=== PATIENT | female | born 1970 | race Caucasian/White ===

== ENCOUNTER 2017-03-24 10:27 | Emergency (ER) | payer BC ==
[2017-03-24] MEDS ORDERED: BENADRYL 50 MG/ML IV ONE (10:47)
[2017-03-24] MEDS ORDERED: Hydromorphone 1 mg/ml Ampule IV ONE (10:47)
[2017-03-24 10:48] VITALS: BP 137/97; PULSE 119; O2SAT 100
--- NOTE | 2017-03-24 10:52 | ERPHSYRPT ---
- History of Present Illness Time Seen by Provider: 03/24/17 10:38 Historian: patient Patient Subjective Stated Complaint: PT REPORTS ABD PAIN ET BACK PAIN BEGINNING 4 DAYS AGO-WAS TX AT PCP OFFICE WITH TESTS ORDERED-DENIES CHANGES IN PAIN- DENIES N/V/D-DENIES FEVER Triage Nursing Assessment: PT PINK WARM ET PRE-KPAWO-ASNG EASY ET NONLABORED-AD NONTENDER TO PALP Physician History: CC: lower abdominal pain Hx: 47 y/o patient of dr Dia with some lower abdominal pain. She saw Dr Dia and has sono and labs ordered but pain is worse so she came to ER. She also has back pain but it is long standing since last summer associated with lifting ehavy boxes. Normal urination. Recent normal LMP. No N/V. No fever. No vaginal disch or bleeding. Allergies/Adverse Reactions: Sulfa (Sulfonamide Antibiotics) [Sulfa(Sulfonamide Antibiotics)] Allergy (Mild, Verified 03/24/17 10:40) Rash Home Medications: Alprazolam [Xanax 0.5 mg] 0.5 mg PO TID 05/03/13 [History] Topiramate 25 mg [Topamax 25 MG] 50 mg PO HS 10/27/14 [History] Levothyroxine Sodium 100 Mcg [Synthroid 100 Mcg] 100 mcg PO DAILY 03/24/17 [History] Hx Tetanus, Diphtheria Vaccination/Date Given: Yes Hx Influenza Vaccination/Date Given: No Hx Pneumococcal Vaccination/Date Given: No Immunizations Up to Date: Yes - Review of Systems Constitutional: Malaise, No Fever, No Chills Eyes: No Symptoms Ears, Nose, & Throat: No Symptoms Respiratory: No Cough, No Dyspnea Cardiac: No Chest Pain Abdominal/Gastrointestinal: Abdominal Pain, Nausea, No Vomiting, No Diarrhea Genitourinary Symptoms: No Dysuria, No Vaginal Bleeding, No Vaginal Discharge Musculoskeletal: Back Pain Skin: No Rash Neurological: No Focal Weakness, No Headache, No Parasthesia All Other Systems: Reviewed and Negative - Past Medical History Pertinent Past Medical History: Yes Neurological History: Migraines ENT History: No Pertinent History Cardiac History: Hypertension Respiratory History: Other Endocrine Medical History: No Pertinent History Musculoskeletal History: No Pertinent History GI Medical History: No Pertinent History History: No Pertinent History Psycho-Social History: Anxiety Female Reproductive Disorders: No Pertinent History - Past Surgical History Past Surgical History: Yes Neuro Surgical History: No Pertinent History Cardiac: No Pertinent History Respiratory: No Pertinent History Gastrointestinal: No Pertinent History Genitourinary: No Pertinent History Musculoskeletal: No Pertinent History Female Surgical History: Tubal Ligation - Social History Smoking Status: Current some day smoker How long have you smoked: 19 Exposure to second hand smoke: Yes Alcohol Use: Socially Drug Use: methamphetamines Patient Lives Alone: No Significant Family History: no pertinent family hx - Female History Hx Now: No - Nursing Vital Signs Nursing Vital Signs: Initial Vital Signs Temperature 98.2 F 03/24/17 10:47 Pulse Rate 119 H 03/24/17 10:47 Respiratory Rate 20 03/24/17 10:47 Blood Pressure 137/97 03/24/17 10:47 O2 Sat by Pulse Oximetry 100 03/24/17 10:47 Pain Scale Pain Intensity 4 - Physical Exam General Appearance: alert Eye Exam: PERRL/EOMI Ears, Nose, Throat Exam: normal ENT inspection, moist mucous membranes Neck Exam: normal inspection, non-tender, supple Respiratory Exam: normal breath sounds, lungs clear Cardiovascular Exam: regular rate/rhythm Gastrointestinal/Abdomen Exam: soft, tenderness (lower), No distention, No mass Pelvic Exam: normal external exam, cervical motion tenderness, uterine tenderness, vaginal discharge (mild frothy white discharge), No vaginal bleeding Back Exam: normal inspection, No CVA tenderness Extremity Exam: normal inspection, normal range of motion Neurologic Exam: alert, oriented x 3, cooperative, sensation nml, No motor deficits Skin Exam: warm, dry, No rash SpO2 Interpretation: normal SpO2: 100 Oxygen Delivery: Room Air - Course Nursing assessment & vital signs reviewed: Yes Ordered Tests: Active Orders 24 hr Category Date Time Status Cath for Specimen-Straight STAT Care 03/24/17 10:49 Active IV Insertion STAT Care 03/24/17 10:47 Active NPO (ED) STAT Care 03/24/17 10:47 Active Pelvic Exam Assist STAT Care 03/24/17 10:47 Active ABDOMEN AND PELVIS W CONTRAST [CT] Stat Exams 03/24/17 10:47 Taken CBC W DIFF Stat Lab 03/24/17 11:05 Completed CMP Stat Lab 03/24/17 11:13 Completed HCG QUALITATIVE,SERUM Stat Lab 03/24/17 11:13 Completed LIPASE Stat Lab 03/24/17 11:13 Completed Lactic Acid Stat Lab 03/24/17 11:23 Results UA W/RFX UR CULTURE Stat Lab 03/24/17 10:47 Completed Wet Prep Stat Lab 03/24/17 10:47 Completed Medication Summary Generic Name Dose Route Start Last Admin Trade Name Vic PRN Reason Stop Dose Admin Sodium Chloride 1,000 mls @ 100 mls/hr 03/24/17 11:00 03/24/17 11:32 Sodium Chloride 0.9% 1000 Ml IV 04/23/17 10:59 100 mls/hr .Q10H KWAN Administration Discontinued Medications Generic Name Dose Route Start Last Admin Trade Name Vic PRN Reason Stop Dose Admin Diphenhydramine HCl 25 mg 03/24/17 10:47 03/24/17 11:37 Benadryl 50 Mg/Ml IV 03/24/17 10:48 Not Given STAT ONE Diphenhydramine HCl Confirm 03/24/17 11:22 Benadryl 50 Mg/Ml Administered 03/24/17 11:23 Dose 50 mg .ROUTE .STK-MED ONE Hydromorphone HCl 1 mg 03/24/17 10:47 03/24/17 11:37 Hydromorphone 1 Mg/Ml Ampule IV 03/24/17 10:48 Not Given STAT ONE Hydromorphone HCl Confirm 03/24/17 11:22 Hydromorphone 1 Mg/Ml Ampule Administered 03/24/17 11:23 Dose 1 mg .ROUTE .STK-MED ONE Lab/Rad Data: Laboratory Result Diagrams 03/24/17 11:05 03/24/17 11:13 Laboratory Results 03/24/17 03/24/17 03/24/17 Range/Units 11:23 11:13 11:13 WBC (4.0-10.5) K/mm3 RBC (4.1-5.4) M/mm3 Hgb (12.0-16.0) gm/dl Hct (35-47) % MCV (78-100) fl MCH (26-32) pg MCHC (32-36) g/dl RDW (11.5-14.0) % Plt Count (150-450) K/mm3 MPV (6-9.5) fl Gran % (36.0-66.0) % Lymphocytes % (24.0-44.0) % Monocytes % (0.0-12.0) % Eosinophils % (0.00-5.0) % Basophils % (0.0-0.4) % Basophils # (0-0.4) Sodium 138 (136-145) mEq/L Potassium 4.3 (3.5-5.1) mEq/L Chloride 103 (98-107) mEq/L Carbon Dioxide 21.8 (21-32) mEq/L Anion Gap 17.9 H (5-15) MEQ/L BUN 10 (9-20) mg/dL Creatinine 0.78 (0.55-1.30) mg/dl Estimated GFR > 60 ML/MIN Glucose 96 (70-110) MG/DL Lactic Acid 2.2 H (0.4-2.0) Calcium 9.3 (8.5-10.1) mg/dL Total Bilirubin 0.40 (0.2-1.0) mg/dL AST 42 H (15-37) U/L ALT 78 (12-78) U/L Alkaline Phosphatase 82 (46-116) U/L Serum Total Protein 8.0 (6.4-8.2) gm/dL Albumin 3.9 (3.4-5.0) g/dL Lipase 112 (73-393) U/L Serum , Qual NEGATIVE (Negative) Ur Collection Type Urine Color (YELLOW) Urine Appearance (CLEAR) Urine pH (5-6) Ur Specific [place] (1.005-1.025) Urine Protein (Negative) Urine Ketones (NEGATIVE) Urine Blood (0-5) Yossi/ul Urine Nitrite (NEGATIVE) Urine Bilirubin (NEGATIVE) Urine Urobilinogen (0-1) mg/dL Ur Leukocyte Esterase (NEGATIVE) Urine Culture Reflexed (NO) Urine Glucose (NEGATIVE) mg/dL WBC (Wet Prep) RBC (Wet Prep) Epi Cells (Wet Prep) Bacteria (Wet Prep) Clue Cells (Wet Prep) Trichomonas (Wet Prep) Budding Yeast (Wet Prp) Specimen Received 03/24/17 03/24/17 Range/Units 11:05 10:47 WBC 11.0 H (4.0-10.5) K/mm3 RBC 4.97 (4.1-5.4) M/mm3 Hgb 14.0 (12.0-16.0) gm/dl Hct 42.9 (35-47) % MCV 86.3 (78-100) fl MCH 28.2 (26-32) pg MCHC 32.6 (32-36) g/dl RDW 13.6 (11.5-14.0) % Plt Count 336 (150-450) K/mm3 MPV 11.4 H (6-9.5) fl Gran % 60.4 (36.0-66.0) % Lymphocytes % 28.6 (24.0-44.0) % Monocytes % 9.0 (0.0-12.0) % Eosinophils % 1.7 (0.00-5.0) % Basophils % 0.3 (0.0-0.4) % Basophils # 0.03 (0-0.4) Sodium (136-145) mEq/L Potassium (3.5-5.1) mEq/L Chloride (98-107) mEq/L Carbon Dioxide (21-32) mEq/L Anion Gap (5-15) MEQ/L BUN (9-20) mg/dL Creatinine (0.55-1.30) mg/dl Estimated GFR ML/MIN Glucose (70-110) MG/DL Lactic Acid (0.4-2.0) Calcium (8.5-10.1) mg/dL Total Bilirubin (0.2-1.0) mg/dL AST (15-37) U/L ALT (12-78) U/L Alkaline Phosphatase (46-116) U/L Serum Total Protein (6.4-8.2) gm/dL Albumin (3.4-5.0) g/dL Lipase (73-393) U/L Serum , Qual (Negative) Ur Collection Type CATH Urine Color YELLOW (YELLOW) Urine Appearance CLEAR (CLEAR) Urine pH 5.0 (5-6) Ur Specific [place] 1.030 (1.005-1.025) Urine Protein NEGATIVE (Negative) Urine Ketones NEGATIVE (NEGATIVE) Urine Blood NEGATIVE (0-5) Yossi/ul Urine Nitrite NEGATIVE (NEGATIVE) Urine Bilirubin NEGATIVE (NEGATIVE) Urine Urobilinogen NORMAL (0-1) mg/dL Ur Leukocyte Esterase NEGATIVE (NEGATIVE) Urine Culture Reflexed NO (NO) Urine Glucose NEGATIVE (NEGATIVE) mg/dL WBC (Wet Prep) Few RBC (Wet Prep) Few Epi Cells (Wet Prep) Few Bacteria (Wet Prep) Moderate Clue Cells (Wet Prep) Moderate Trichomonas (Wet Prep) None Seen Budding Yeast (Wet Prp) None Seen Specimen Received 03-24-17 1100 - Progress Progress Note: 03/24/17 13:13 CT shows diverticulosis but no evidence of inflammation. No ovarian cyst. She has clue cells. GC/CT pending. Will give rocephin/doxy to cover PID and use flagyl for vaginosis. Advised no intercourse and to follow up with Dr Dia. Counseled pt/family regarding: lab results, diagnosis, need for follow-up, rad results - Departure Time of Disposition: 13:14 Departure Disposition: Home Clinical Impression: Lower abdominal pain, Bacterial vaginosis, PID (pelvic inflammatory disease) Condition: Stable Critical Care Time: No Referrals: TRAVON DIA MD [Primary Care Provider] - Instructions: Abdominal Pain-Adult, Bacterial Vaginosis, Pelvic Inflammatory Disease Additional Instructions: No intercourse until you follow up with Dr Dia next week. Rx doxycycline. Rx flagyl. Rx naproxen. Rx sent to [email or web address]. Follow up with Dr Dia. Return for problems or concerns. Prescriptions: Doxycycline Hyclate 100 mg [Vibramycin 100 MG] 1 tab PO BID #28 tab Metronidazole 500 mg [Flagyl 500 MG] 500 mg PO BID #14 tablet Naproxen 500 mg [Naprosyn 500 MG] 500 tab PO BID #15 tablet
[2017-03-24] MEDS ORDERED: Sodium Chloride 0.9% 1000 ML 1,000 ML IV SCH (11:00)
[2017-03-24 11:21] LABS: Appearance CLEAR (CLEAR); Bilirubin NEGATIVE (NEGATIVE); Blood NEGATIVE Ery/ul (0-5); Glucose NEGATIVE (NEGATIVE); Ketones NEGATIVE (NEGATIVE); Leukocyte Esterase NEGATIVE (NEGATIVE); Nitrite NEGATIVE (NEGATIVE); Protein,Urine Dip NEGATIVE (Negative); Urobilinogen NORMAL mg/dL (0-1)
[2017-03-24] MEDS ORDERED: BENADRYL 50 MG/ML ONE (11:22)
[2017-03-24] MEDS ORDERED: Hydromorphone 1 mg/ml Ampule ONE (11:22)
[2017-03-24] MEDS ORDERED: Sodium Chloride 0.9% 1000 ML 1,000 ML ONE (11:23)
[2017-03-24 11:32] LABS: Lactic Acid 2.2 (0.4-2.0)
[2017-03-24 12:12] LABS: BASOPHIL % 0.3 % (0.0-0.4); Basophil (Absolute #) 0.03 (0-0.4); Eosinophil % 1.7 % (0.00-5.0); Eosinophil (Absolute #) 0.19 (0-0.5); Granulocyte Absolute (ANC) 6.63 (1.4-6.9); Granulocytes % 60.4 % (36.0-66.0); Hematocrit 42.9 % (35-47); Lymphocyte (Absolute #) 3.14 (1.0-4.6); Lymphocytes % 28.6 % (24.0-44.0); Mean Cell Volume 86.3 fl (78-100); Mean Corpuscular Hemoglobin 28.2 pg (26-32); Mean Corpuscular Hgb Concent. 32.6 g/dl (32-36); Mean Platelet Volume 11.4 fl (6-9.5); Monocyte (Absolute #) 0.99 (0.0-1.3); Platelet Count 336 K/mm3 (150-450); Red Blood Count 4.97 M/mm3 (4.1-5.4); Red Cell Distribution Width 13.6 % (11.5-14.0)
[2017-03-24 12:17] LABS: Bacteria Moderate; Clue Cells Moderate; Red Blood Cells Few; Trichomonas None Seen; White Blood Cells Few; Yeast None Seen
[2017-03-24 12:24] LABS: ALBUMIN 3.9 g/dL (3.4-5.0); ALKALINE PHOSPHATASE 82 U/L (46-116); ANION GAP 17.9 MEQ/L (5-15); BLOOD UREA NITROGEN 10 mg/dL (9-20); CHLORIDE 103 mEq/L (98-107); Calcium 9.3 mg/dL (8.5-10.1); Carbon Dioxide 21.8 mEq/L (21-32); Creatinine 1 0.78 mg/dl (0.55-1.30); EST GLOMERULAR FILTRATION RATE > 60 ML/MIN; Glucose 96 MG/DL (70-110); LIPASE 112 U/L (73-393); Potassium 4.3 mEq/L (3.5-5.1); SGOT/AST 42 U/L (15-37); SGPT/ALT 78 U/L (12-78); SODIUM 138 mEq/L (136-145)
[2017-03-24] MEDS ORDERED: ROCEPHIN 1 Gm-D5w 50 ml Bag** 1 G/50 ML IVPB IV STA (13:13)
[2017-03-24] MEDS ORDERED: ROCEPHIN 1 Gm-D5w 50 ml Bag** 1 G/50 ML IVPB IV ONE (13:24)
--- NOTE | 2017-03-24 22:54 | XRAY ---
Indication: Bilateral lower quadrant pain 3 days. Multiple contiguous axial images obtained through the abdomen and pelvis using 80 cc Isovue 370 contrast only. Comparison: October 27, 2014. Lung bases demonstrate minimal bibasilar dependent atelectasis. Heart is not enlarged. Noncontrasted stomach and bowel loops appear nonobstructed. Normal appendix. Again minimal descending/sigmoid diverticulosis without diverticulitis. No free fluid/air. Remaining liver, gallbladder, pancreas, spleen, degenerative glands, kidneys, ureters, bladder, uterus, and aorta appear normal in CT appearance and attenuation. No pathologic retroperitoneal lymphadenopathy. Osseous structures intact. Impression: Stable minimal colonic diverticulosis. No new/acute intra-abdominal/pelvic abnormalities. Comment: Preliminary interpretation was made by [facility]. No discrepancy. CTDI 19.45
== END 2017-03-24 13:35 | disposition home or self-care (01) ==
LOC: ED 10:27
DX: R10.30 Lower abdominal pain, unspecified (principal); M54.9 Dorsalgia, unspecified; N76.0 Acute vaginitis; N73.9 Female pelvic inflammatory disease, unspecified
CPT/HCPCS: 36000; 36415; 74177; 80053; 81002; 83605; 83690; 84703; 85025; 87210; 87490; 87590; 96360; 96361; 96365; 99284; J0696; J1170; J1200; P9612

== ENCOUNTER 2017-09-13 16:17 | Emergency (ER) | payer BC ==
[2017-09-13 16:30] VITALS: O2SAT 98
--- NOTE | 2017-09-13 17:03 | ERPHSYRPT ---
- History of Present Illness Time Seen by Provider: 09/13/17 16:40 Source: patient Exam Limitations: clinical condition Patient Subjective Stated Complaint: Cough and congestion Triage Nursing Assessment: Pt presents to the Ed with complaints of cough and congestion x1. Pt states productive cough but states she has not observed the mucus. No distress noted, pt denies pain, skin PWD, pt A&O x4. Physician History: PATIENT COMPLAINS OF PRODUCTIVE COUGH FOR 2 DAYS. DENIES FEVER, CHILLS, SORETHROAT OR DYSPNEA, Timing/Duration: yesterday Cough Quality/Degree: moderate, productive cough Possible Cause: no prior episodes Modifying Factors: Improves With: coughing Associated Symptoms: denies symptoms International travel in last 2 weeks: No Allergies/Adverse Reactions: Sulfa (Sulfonamide Antibiotics) [Sulfa(Sulfonamide Antibiotics)] Allergy (Mild, Verified 03/24/17 10:40) Rash Home Medications: ALPRAZolam [Xanax 0.5 mg] 0.5 mg PO TID 05/03/13 [History] Levothyroxine Sodium 100 Mcg [Synthroid 100 Mcg] 100 mcg PO DAILY 03/24/17 [History] Atorvastatin Calcium 20 mg PO DAILY 09/13/17 [History] Metoprolol Succinate [Toprol Xl] 50 mg PO DAILY 09/13/17 [History] Hx Tetanus, Diphtheria Vaccination/Date Given: No Hx Influenza Vaccination/Date Given: Yes Hx Pneumococcal Vaccination/Date Given: No Immunizations Up to Date: Yes - Review of Systems Constitutional: No Fever, No Chills Eyes: No Symptoms Ears, Nose, & Throat: No Symptoms Respiratory: Cough, No Dyspnea Cardiac: No Symptoms, No Chest Pain, No Edema, No Syncope Abdominal/Gastrointestinal: No Abdominal Pain, No Nausea, No Vomiting, No Diarrhea Genitourinary Symptoms: No Symptoms, No Dysuria Musculoskeletal: No Symptoms, No Back Pain, No Neck Pain Skin: No Rash Neurological: No Dizziness, No Focal Weakness, No Sensory Changes Psychological: No Symptoms Endocrine: No Symptoms All Other Systems: Reviewed and Negative - Past Medical History Pertinent Past Medical History: Yes Neurological History: Migraines ENT History: No Pertinent History Cardiac History: Hypertension Respiratory History: Other Endocrine Medical History: No Pertinent History Musculoskeletal History: No Pertinent History GI Medical History: No Pertinent History History: No Pertinent History Psycho-Social History: Anxiety Female Reproductive Disorders: No Pertinent History - Past Surgical History Past Surgical History: Yes Neuro Surgical History: No Pertinent History Cardiac: No Pertinent History Respiratory: No Pertinent History Gastrointestinal: No Pertinent History Genitourinary: No Pertinent History Musculoskeletal: No Pertinent History Female Surgical History: Tubal Ligation - Social History Smoking Status: Current every day smoker How long have you smoked: 30 years Exposure to second hand smoke: Yes Alcohol Use: Socially Drug Use: none Patient Lives Alone: No Significant Family History: no pertinent family hx - Female History Hx Now: No - Nursing Vital Signs Nursing Vital Signs: Initial Vital Signs Temperature 98.8 F 09/13/17 16:22 Pulse Rate 89 09/13/17 16:22 Respiratory Rate 16 09/13/17 16:22 Blood Pressure 168/86 09/13/17 16:22 O2 Sat by Pulse Oximetry 96 09/13/17 16:22 Pain Scale Pain Intensity 0 - Physical Exam General Appearance: no apparent distress, alert Eye Exam: PERRL/EOMI, eyes nml inspection Ears, Nose, Throat Exam: normal ENT inspection, TMs normal, pharynx normal, moist mucous membranes Neck Exam: normal inspection, non-tender, supple, full range of motion Respiratory Exam: normal breath sounds, lungs clear, No respiratory distress Cardiovascular Exam: regular rate/rhythm, normal heart sounds Gastrointestinal/Abdomen Exam: No tenderness Back Exam: normal inspection, No CVA tenderness, No vertebral tenderness Extremity Exam: normal inspection, normal range of motion Neurologic Exam: alert, oriented x 3, cooperative, normal mood/affect, sensation nml, No motor deficits Skin Exam: normal color, warm, dry, No rash Lymphatic Exam: No adenopathy SpO2: 98 Oxygen Delivery: Room Air - Progress Counseled pt/family regarding: diagnosis, need for follow-up - Departure Time of Disposition: 17:05 Departure Disposition: Home Clinical Impression: ACUTE BRONCHITIS Condition: Stable Critical Care Time: No Referrals: TRAVON DIA MD [Primary Care Provider] - Additional Instructions: TAKE OVER THE COUNTER COUGH SYRUP FOR COUGHING. ANTIBIOTIC AUGMENTIN 875MG TWICE DAILY FOR 10 DAYS. TYLENOL OR MOTRIN NEEDED FOR FEVER. CONSULT YOUR PRIMARY CARE PROVIDER FOR FOLLOWUP IN 1 WEEK. Prescriptions: Amox Tr/Potass Clav. 875 mg [Augmentin 875-125 Tablet] 875 mg PO BID #20 tablet
[2017-09-13 17:14] VITALS: BP 161/77; PULSE 92
== END 2017-09-13 17:12 | disposition home or self-care (01) ==
LOC: ED 16:17
DX: J20.9 Acute bronchitis, unspecified (principal); Z79.899 Other long term (current) drug therapy
CPT/HCPCS: 99283

== ENCOUNTER 2018-01-01 11:04 | Emergency (ER) | payer BC ==
--- NOTE | 2018-01-01 11:20 | ERPHSYRPT ---
- History of Present Illness Time Seen by Provider: 01/01/18 11:19 Source: patient Exam Limitations: no limitations Physician History: 47 y/o white female presents with weakness for a couple of days and bilat lower ext edema intermittently for 1 week after standing at work. pt has hypothyroidism, hypertension, and hypercholesterolemia. pt denies cp and denies abd pain. no new meds and denies illicit drug use. Timing/Duration: day(s) (2) Severity: mild Associated Symptoms: weakness, No nausea, No vomiting, No abdominal pain, No shortness of breath, No heartburn, No diaphoresis, No cough, No chest pain, No fever, No headaches, No loss of appetite, No malaise, No syncope, No seizure Allergies/Adverse Reactions: Sulfa (Sulfonamide Antibiotics) [Sulfa(Sulfonamide Antibiotics)] Allergy (Mild, Verified 01/01/18 11:21) Rash Home Medications: ALPRAZolam [Xanax 0.5 mg] 0.5 mg PO TID 05/03/13 [History] Levothyroxine Sodium 100 Mcg [Synthroid 100 Mcg] 75 mcg PO DAILY 03/24/17 [ History] Atorvastatin Calcium 20 mg PO DAILY 09/13/17 [History] Metoprolol Succinate [Toprol Xl] 50 mg PO DAILY 09/13/17 [History] Hx Tetanus, Diphtheria Vaccination/Date Given: No Hx Influenza Vaccination/Date Given: Yes Hx Pneumococcal Vaccination/Date Given: No - Review of Systems Constitutional: Weakness Eyes: No Symptoms, No Discharge, No Eye Pain Ears, Nose, & Throat: No Symptoms, No Ear Pain, No Mouth Pain, No Painful Swallowing Respiratory: No Symptoms, No Cough, No Dyspnea, No Stridor, No Wheezing Cardiac: No Symptoms, No Chest Pain, No Palpitations, No Syncope Abdominal/Gastrointestinal: No Symptoms, No Abdominal Pain, No Nausea, No Vomiting, No Diarrhea Genitourinary Symptoms: No Symptoms, No Dysuria, No Frequency, No Hematuria Musculoskeletal: No Symptoms, No Back Pain, No Neck Pain, No Deformity, No Fall , No Injury Skin: No Symptoms Neurological: No Symptoms, No Dizziness, No Headache Psychological: Anxiety, No Alcohol Abuse, No Drug Abuse Endocrine: No Symptoms Hematologic/Lymphatic: No Symptoms Immunological/Allergic: No Symptoms All Other Systems: Reviewed and Negative - Past Medical History Pertinent Past Medical History: Yes Neurological History: Migraines ENT History: No Pertinent History Cardiac History: Hypertension Respiratory History: Other Endocrine Medical History: No Pertinent History Musculoskeletal History: No Pertinent History GI Medical History: No Pertinent History History: No Pertinent History Psycho-Social History: Anxiety Female Reproductive Disorders: No Pertinent History - Past Surgical History Past Surgical History: Yes Neuro Surgical History: No Pertinent History Cardiac: No Pertinent History Respiratory: No Pertinent History Gastrointestinal: No Pertinent History Genitourinary: No Pertinent History Musculoskeletal: No Pertinent History Female Surgical History: Tubal Ligation - Social History Smoking Status: Current every day smoker How long have you smoked: 30 years Exposure to second hand smoke: Yes Alcohol Use: Socially Drug Use: none Patient Lives Alone: No Significant Family History: no pertinent family hx - Nursing Vital Signs Nursing Vital Signs: Initial Vital Signs Temperature 97.6 F 01/01/18 11:11 Pulse Rate 85 01/01/18 11:11 Blood Pressure 179/91 01/01/18 11:11 O2 Sat by Pulse Oximetry 96 01/01/18 11:11 Pain Scale Pain Intensity 9 - Physical Exam General Appearance: no apparent distress, alert, anxiety Eye Exam: PERRL/EOMI, eyes nml inspection Ears, Nose, Throat Exam: normal ENT inspection, TMs normal, moist mucous membranes Neck Exam: normal inspection, non-tender, supple, full range of motion Respiratory Exam: normal breath sounds, lungs clear, airway intact, No chest tenderness, No accessory muscle use, No rhonchi, No wheezing, No stridor Cardiovascular Exam: regular rate/rhythm, normal heart sounds, normal peripheral pulses Gastrointestinal/Abdomen Exam: soft, normal bowel sounds, No tenderness, No guarding, No rebound Pelvic Exam: not done Rectal Exam: not done Back Exam: normal inspection, normal range of motion, No CVA tenderness, No vertebral tenderness Extremity Exam: normal inspection, normal range of motion, pelvis stable Neurologic Exam: alert, oriented x 3, cooperative, 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 as tested Skin Exam: normal color, warm, dry Lymphatic Exam: No adenopathy SpO2 Interpretation: normal - Course Nursing assessment & vital signs reviewed: Yes EKG Interpreted by Me: RATE (74), Sinus Rhythm, NORMAL AXIS, NORMAL INTERVALS, NORMAL QRS (no changes from ekg dated 08/09/16) Ordered Tests: Active Orders 24 hr Category Date Time Status Clean Catch Urine Specimen STAT Care 10/16/18 11:37 Active EKG-ER Only STAT Care 01/01/18 11:37 Active IV Insertion STAT Care 01/01/18 11:37 Active Pulse Oximetry (ED) STAT Care 01/01/18 11:37 Active CBC W DIFF Stat Lab 01/01/18 11:50 Completed CMP Stat Lab 01/01/18 11:50 Completed CULTURE,URINE Stat Lab 01/01/18 12:05 Received TROPONIN Q3H Lab 01/01/18 11:50 Completed TROPONIN Q3H Lab 01/01/18 14:45 Ordered TROPONIN Q3H Lab 01/01/18 17:45 Ordered TROPONIN Q3H Lab 01/01/18 20:45 Ordered TROPONIN Q3H Lab 01/01/18 23:45 Ordered UA W/RFX UR CULTURE Stat Lab 01/01/18 12:05 Completed Urine Triage Profile Stat Lab 01/01/18 12:05 Completed Lab/Rad Data: Laboratory Result Diagrams 01/01/18 11:50 01/01/18 11:50 Laboratory Results 01/01/18 01/01/18 01/01/18 Range/Units 12:05 12:05 11:50 WBC (4.0-10.5) K/mm3 RBC (4.1-5.4) M/mm3 Hgb (12.0-16.0) gm/dl Hct (35-47) % MCV (78-100) fl MCH (26-32) pg MCHC (32-36) g/dl RDW (11.5-14.0) % Plt Count (150-450) K/mm3 MPV (6-9.5) fl Gran % (36.0-66.0) % Eos # (Auto) (0-0.5) Absolute Lymphs (auto) (1.0-4.6) Absolute Monos (auto) (0.0-1.3) Lymphocytes % (24.0-44.0) % Monocytes % (0.0-12.0) % Eosinophils % (0.00-5.0) % Basophils % (0.0-0.4) % Absolute Granulocytes (1.4-6.9) Basophils # (0-0.4) Sodium (137-145) mmol/L Potassium (3.5-5.1) mmol/L Chloride (98-107) mmol/L Carbon Dioxide (22-30) mmol/L Anion Gap (5-15) MEQ/L BUN (7-17) mg/dL Creatinine (0.52-1.04) mg/dL Estimated GFR ML/MIN Glucose (74-106) mg/dL Calcium (8.4-10.2) mg/dL Total Bilirubin (0.2-1.3) mg/dL AST (14-36) U/L ALT (0-35) U/L Alkaline Phosphatase (38-126) U/L Troponin I < 0.012 (0.000-0.034) ng/mL Serum Total Protein (6.3-8.2) g/dL Albumin (3.5-5.0) g/dL Urine Color YELLOW (YELLOW) Urine Appearance CLOUDY (CLEAR) Urine pH 5.0 (5-6) Ur Specific [place] 1.019 (1.005-1.025) Urine Protein NEGATIVE (Negative) Urine Ketones NEGATIVE (NEGATIVE) Urine Blood SMALL (0-5) Yossi/ul Urine Nitrite NEGATIVE (NEGATIVE) Urine Bilirubin NEGATIVE (NEGATIVE) Urine Urobilinogen NEGATIVE (0-1) mg/dL Ur Leukocyte Esterase TRACE (NEGATIVE) Urine WBC (Auto) 6-10 (0-5) /HPF Urine RBC (Auto) 0-2 (0-2) /HPF U Epithel Cells (Auto) MODERATE (FEW) /HPF Urine Bacteria (Auto) FEW (NEGATIVE) /HPF Urine Mucus (Auto) SLIGHT (NEGATIVE) /HPF Urine Culture Reflexed YES (NO) Urine Glucose NEGATIVE (NEGATIVE) mg/dL Urine Opiates Level NEGATIVE (NEGATIVE) Ur Methadone NEGATIVE (NEGATIVE) Urine Barbiturates NEGATIVE (NEGATIVE) Ur Phencyclidine (PCP) NEGATIVE (NEGATIVE) Urine Amphetamine NEGATIVE (NEGATIVE) U Benzodiazepine Level NEGATIVE (NEGATIVE) Urine Cocaine NEGATIVE (NEGATIVE) Urine Marijuana (THC) NEGATIVE (NEGATIVE) 01/01/18 01/01/18 Range/Units 11:50 11:50 WBC 9.0 (4.0-10.5) K/mm3 RBC 4.76 (4.1-5.4) M/mm3 Hgb 13.6 (12.0-16.0) gm/dl Hct 41.2 (35-47) % MCV 86.6 (78-100) fl MCH 28.6 (26-32) pg MCHC 33.0 (32-36) g/dl RDW 13.3 (11.5-14.0) % Plt Count 263 (150-450) K/mm3 MPV 10.9 H (6-9.5) fl Gran % 61.1 (36.0-66.0) % Eos # (Auto) 0.17 (0-0.5) Absolute Lymphs (auto) 2.58 (1.0-4.6) Absolute Monos (auto) 0.73 (0.0-1.3) Lymphocytes % 28.7 (24.0-44.0) % Monocytes % 8.1 (0.0-12.0) % Eosinophils % 1.9 (0.00-5.0) % Basophils % 0.2 (0.0-0.4) % Absolute Granulocytes 5.50 (1.4-6.9) Basophils # 0.02 (0-0.4) Sodium 140 (137-145) mmol/L Potassium 4.0 (3.5-5.1) mmol/L Chloride 104 (98-107) mmol/L Carbon Dioxide 27 (22-30) mmol/L Anion Gap 13.2 (5-15) MEQ/L BUN 12 (7-17) mg/dL Creatinine 0.67 (0.52-1.04) mg/dL Estimated GFR > 60.0 ML/MIN Glucose 95 (74-106) mg/dL Calcium 9.5 (8.4-10.2) mg/dL Total Bilirubin 0.50 (0.2-1.3) mg/dL AST 41 H (14-36) U/L ALT 55 H (0-35) U/L Alkaline Phosphatase 100 (38-126) U/L Troponin I (0.000-0.034) ng/mL Serum Total Protein 7.7 (6.3-8.2) g/dL Albumin 4.7 (3.5-5.0) g/dL Urine Color (YELLOW) Urine Appearance (CLEAR) Urine pH (5-6) Ur Specific [place] (1.005-1.025) Urine Protein (Negative) Urine Ketones (NEGATIVE) Urine Blood (0-5) Yossi/ul Urine Nitrite (NEGATIVE) Urine Bilirubin (NEGATIVE) Urine Urobilinogen (0-1) mg/dL Ur Leukocyte Esterase (NEGATIVE) Urine WBC (Auto) (0-5) /HPF Urine RBC (Auto) (0-2) /HPF U Epithel Cells (Auto) (FEW) /HPF Urine Bacteria (Auto) (NEGATIVE) /HPF Urine Mucus (Auto) (NEGATIVE) /HPF Urine Culture Reflexed (NO) Urine Glucose (NEGATIVE) mg/dL Urine Opiates Level (NEGATIVE) Ur Methadone (NEGATIVE) Urine Barbiturates (NEGATIVE) Ur Phencyclidine (PCP) (NEGATIVE) Urine Amphetamine (NEGATIVE) U Benzodiazepine Level (NEGATIVE) Urine Cocaine (NEGATIVE) Urine Marijuana (THC) (NEGATIVE) - Progress Progress: improved, re-examined Counseled pt/family regarding: lab results, diagnosis, need for follow-up - Departure Time of Disposition: 13:44 Departure Disposition: Home Clinical Impression: Weakness, UTI (urinary tract infection) Condition: Stable Critical Care Time: No Referrals: TRAVON DIA MD [Primary Care Provider] - Additional Instructions: drink plenty of fluids. follow up with your prescribing physician for further management Prescriptions: Ciprofloxacin [Cipro 500 MG] 500 mg PO BID #14 tablet
[2018-01-01 12:13] LABS: BASOPHIL % 0.2 % (0.0-0.4); Basophil (Absolute #) 0.02 (0-0.4); Eosinophil % 1.9 % (0.00-5.0); Eosinophil (Absolute #) 0.17 (0-0.5); Granulocytes % 61.1 % (36.0-66.0); Hematocrit 41.2 % (35-47); Hemoglobin 13.6 gm/dl (12.0-16.0); Lymphocyte (Absolute #) 2.58 (1.0-4.6); Lymphocytes % 28.7 % (24.0-44.0); Mean Cell Volume 86.6 fl (78-100); Mean Corpuscular Hemoglobin 28.6 pg (26-32); Mean Platelet Volume 10.9 fl (6-9.5); Monocyte (Absolute #) 0.73 (0.0-1.3); Monocytes % 8.1 % (0.0-12.0); Platelet Count 263 K/mm3 (150-450); Red Blood Count 4.76 M/mm3 (4.1-5.4); Red Cell Distribution Width 13.3 % (11.5-14.0)
[2018-01-01 12:28] LABS: ALBUMIN 4.7 g/dL (3.5-5.0); ALKALINE PHOSPHATASE 100 U/L (38-126); ANION GAP 13.2 MEQ/L (5-15); BLOOD UREA NITROGEN 12 mg/dL (7-17); CHLORIDE 104 mmol/L (98-107); Calcium 9.5 mg/dL (8.4-10.2); Carbon Dioxide 27 mmol/L (22-30); Creatinine 1 0.67 mg/dL (0.52-1.04); Glucose 95 mg/dL (74-106); SGOT/AST 41 U/L (14-36); SGPT/ALT 55 U/L (0-35); SODIUM 140 mmol/L (137-145); Total Protein 7.7 g/dL (6.3-8.2)
[2018-01-01 12:42] LABS: Appearance CLOUDY (CLEAR); Bilirubin NEGATIVE (NEGATIVE); Blood SMALL Ery/ul (0-5); Glucose NEGATIVE (NEGATIVE); Ketones NEGATIVE (NEGATIVE); Leukocyte Esterase TRACE (NEGATIVE); Nitrite NEGATIVE (NEGATIVE); Protein,Urine Dip NEGATIVE (Negative); Specific Gravity 1.019 (1.005-1.025); Urobilinogen NEGATIVE mg/dL (0-1)
[2018-01-01 12:52] LABS: Amphetamine,Urine NEGATIVE (NEGATIVE); Barbiturate,Urine NEGATIVE (NEGATIVE); Benzodiazepine,Urine NEGATIVE (NEGATIVE); Cocaine,Urine NEGATIVE (NEGATIVE); Methadone,Urine NEGATIVE (NEGATIVE); Opiate,Urine NEGATIVE (NEGATIVE); PCP,Urine NEGATIVE (NEGATIVE); THC,Urine NEGATIVE (NEGATIVE)
[2018-01-01] MEDS ORDERED: Cipro 500 MG PO ONE (13:46)
[2018-01-01] MEDS ORDERED: Cipro 500 MG ONE (13:51)
[2018-01-01 13:54] VITALS: BP 155/99; PULSE 74; O2SAT 97
== END 2018-01-01 14:01 | disposition home or self-care (01) ==
LOC: ED 11:04
DX: N39.0 Urinary tract infection, site not specified (principal); R53.1 Weakness; Z79.899 Other long term (current) drug therapy
CPT/HCPCS: 36000; 36415; 80053; 80307; 81001; 84484; 85025; 87086; 93005; 99284; A9270-GY

== ENCOUNTER 2019-04-20 10:43 | Emergency (ER) | payer BC ==
[2019-04-20] MEDS ORDERED: Zofran 4 MG/2 ML VIAL IV ONE (11:01)
[2019-04-20] MEDS ORDERED: Protonix 40MG Tablet PO ONE (11:01)
[2019-04-20] MEDS ORDERED: Sodium Chloride 0.9% 1000 ML 1,000 ML IV STA (11:01)
[2019-04-20] MEDS ORDERED: TORAdol 30 mg Injection IV ONE (11:01)
[2019-04-20] MEDS ORDERED: TORAdol 30 mg Injection ONE (11:09)
[2019-04-20] MEDS ORDERED: Sodium Chloride 0.9% 1000 ML 1,000 ML ONE (11:09)
[2019-04-20] MEDS ORDERED: Zofran 4 MG/2 ML VIAL ONE (11:09)
[2019-04-20] MEDS ORDERED: Protonix 40MG Tablet ONE (11:09)
[2019-04-20 11:19] LABS: Absolute Neutrophil Ct (ANC) 4.73 (1.4-6.9); BASOPHIL % 0.5 % (0.0-0.4); Basophil (Absolute #) 0.04 (0-0.4); Eosinophil % 1.9 % (0.00-5.0); Eosinophil (Absolute #) 0.16 (0-0.5); Hematocrit 40.9 % (35-47); Hemoglobin 13.4 gm/dl (12.0-16.0); Lymphocyte (Absolute #) 2.59 (1.0-4.6); Lymphocytes % 31.4 % (24.0-44.0); Mean Cell Volume 85.2 fl (78-100); Mean Corpuscular Hemoglobin 27.9 pg (26-32); Mean Corpuscular Hgb Concent. 32.8 g/dl (32-36); Mean Platelet Volume 11.1 fl (7.5-11.0); Monocyte (Absolute #) 0.74 (0.0-1.3); Neutrophil % 57.2 % (36.0-66.0); Platelet Count 310 K/mm3 (150-450); Red Cell Distribution Width 14.7 % (11.5-14.0); White Blood Count 8.3 K/mm3 (4.0-10.5)
[2019-04-20 11:26] LABS: ALBUMIN 4.7 g/dL (3.5-5.0); ALKALINE PHOSPHATASE 57 U/L (38-126); AMYLASE 66 U/L (30-110); ANION GAP 13.1 MEQ/L (5-15); BLOOD UREA NITROGEN 18 mg/dL (7-17); CHLORIDE 103 mmol/L (98-107); Calcium 9.4 mg/dL (8.4-10.2); Carbon Dioxide 28 mmol/L (22-30); Creatinine 1 0.82 mg/dL (0.52-1.04); Glucose 148 mg/dL (74-106); LIPASE 122 U/L (23-300); Potassium 3.4 mmol/L (3.5-5.1); SGOT/AST 26 U/L (14-36); SGPT/ALT 27 U/L (0-35); SODIUM 140 mmol/L (137-145); Total Protein 8.1 g/dL (6.3-8.2)
[2019-04-20 11:31] LABS: INR 1.04 (0.8-3.0); PROTIME 11.8 SECONDS (9.95-12.35)
[2019-04-20 12:41] LABS: Appearance CLEAR (CLEAR); Bacteria RARE /HPF (NEGATIVE); Bilirubin NEGATIVE (NEGATIVE); Blood NEGATIVE Ery/ul (0-5); Epithelial Cells FEW /HPF (FEW); Glucose NEGATIVE (NEGATIVE); Ketones NEGATIVE (NEGATIVE); Leukocyte Esterase NEGATIVE (NEGATIVE); Mucus SLIGHT /HPF (NEGATIVE); Nitrite NEGATIVE (NEGATIVE); Protein,Urine Dip NEGATIVE (Negative); Specific Gravity 1.009 (1.005-1.025); Urobilinogen NEGATIVE mg/dL (0-1); WBC 0-2 /HPF (0-5)
--- NOTE | 2019-04-20 12:45 | ERPHSYRPT ---
- History of Present Illness Time Seen by Provider: 04/20/19 10:55 Historian: patient Exam Limitations: no limitations Patient Subjective Stated Complaint: states has been having ruq abd aching and pressure for two days. also having some nausea. denies v/d. normal bm today. denies fever. Triage Nursing Assessment: ambulated to room per self. skin w/d, color normal. abd round, soft, tender ruq. Physician History: intermittant abd pain - RUQ for weeks Timing/Duration: intermittent Activities at Onset: none Quality: cramping, stabbing Abdominal Pain Onset Location: RUQ Pain Radiation: no radiation Severity of Pain-Max: moderate Severity of Pain-Current: moderate Modifying Factors: Improves With: nothing Associated Symptoms: nausea Previous symptoms: same symptoms as today Allergies/Adverse Reactions: egg Allergy (Severe, Verified 04/20/19 11:11) Tightness of Throat Sulfa (Sulfonamide Antibiotics) [Sulfa(Sulfonamide Antibiotics)] Allergy (Mild, Verified 01/01/18 11:21) Rash Home Medications: ALPRAZolam [Xanax 0.5 mg] 0.5 mg PO TID 05/03/13 [History] Levothyroxine Sodium 100 Mcg [Synthroid 100 Mcg] 75 mcg PO DAILY 03/24/17 [ History] Atorvastatin Calcium 20 mg PO HS 09/13/17 [History] Metoprolol Succinate [Toprol Xl] 50 mg PO DAILY 09/13/17 [History] Fenofibrate,Micronized [Fenofibrate] 200 mg PO HS 04/20/19 [History] Omeprazole 40 mg PO DAILY 04/20/19 [History] Hx Tetanus, Diphtheria Vaccination/Date Given: No Hx Influenza Vaccination/Date Given: No Hx Pneumococcal Vaccination/Date Given: No - Review of Systems Constitutional: No Fever, No Chills Eyes: No Symptoms Ears, Nose, & Throat: No Symptoms Respiratory: No Cough, No Dyspnea Cardiac: No Chest Pain, No Edema, No Syncope Abdominal/Gastrointestinal: No Abdominal Pain, No Nausea, No Vomiting, No Diarrhea Genitourinary Symptoms: No Dysuria Musculoskeletal: No Back Pain, No Neck Pain Skin: No Rash Neurological: No Dizziness, No Focal Weakness, No Sensory Changes Psychological: No Symptoms Endocrine: No Symptoms All Other Systems: Reviewed and Negative - Past Medical History Pertinent Past Medical History: Yes Neurological History: Migraines ENT History: No Pertinent History Cardiac History: Hypertension Respiratory History: Other Endocrine Medical History: No Pertinent History Musculoskeletal History: No Pertinent History GI Medical History: No Pertinent History History: No Pertinent History Psycho-Social History: Anxiety Female Reproductive Disorders: No Pertinent History - Past Surgical History Past Surgical History: Yes Neuro Surgical History: No Pertinent History Cardiac: No Pertinent History Respiratory: No Pertinent History Gastrointestinal: No Pertinent History Genitourinary: No Pertinent History Musculoskeletal: No Pertinent History Female Surgical History: Tubal Ligation - Social History Smoking Status: Current every day smoker How long have you smoked: 30 Exposure to second hand smoke: No Alcohol Use: Socially Drug Use: none Patient Lives Alone: No Significant Family History: no pertinent family hx - Female History Hx Last Menstrual Period: 03/31/19 Hx Now: No - Nursing Vital Signs Nursing Vital Signs: Initial Vital Signs Temperature 99.6 F 04/20/19 10:53 Pulse Rate 101 H 04/20/19 10:53 Respiratory Rate 16 04/20/19 10:53 Blood Pressure 178/97 04/20/19 10:53 O2 Sat by Pulse Oximetry 99 04/20/19 10:53 Pain Scale Pain Intensity 2 - Physical Exam General Appearance: no apparent distress, alert Eye Exam: PERRL/EOMI, eyes nml inspection Ears, Nose, Throat Exam: normal ENT inspection, pharynx normal, moist mucous membranes Neck Exam: normal inspection, non-tender, supple, full range of motion Respiratory Exam: normal breath sounds, lungs clear, No respiratory distress Cardiovascular Exam: regular rate/rhythm, normal heart sounds Gastrointestinal/Abdomen Exam: soft, normal bowel sounds, tenderness, No mass Back Exam: normal inspection, normal range of motion, No CVA tenderness, No vertebral tenderness Extremity Exam: normal inspection, normal range of motion, pelvis stable Neurologic Exam: alert, oriented x 3, cooperative, normal mood/affect, nml cerebellar function, sensation nml, No motor deficits Skin Exam: normal color, warm, dry SpO2: 97 - Course Nursing assessment & vital signs reviewed: Yes - CT Exams Abdomen CT Interpretation: Other (gall stones) Ordered Tests: Active Orders 24 hr Category Date Time Status IV Insertion STAT Care 04/20/19 11:01 Active ABDOMEN AND PELVIS W/0 CONTRAS [CT] Stat Exams 04/20/19 11:23 Taken AMYLASE Stat Lab 04/20/19 11:13 Completed CBC W DIFF Stat Lab 04/20/19 11:13 Completed CMP Stat Lab 04/20/19 11:13 Completed LIPASE Stat Lab 04/20/19 11:13 Completed Lactic Acid Stat Lab 04/20/19 11:01 Completed PROTIME WITH INR Stat Lab 04/20/19 11:13 Completed UA W/RFX UR CULTURE Stat Lab 04/20/19 12:14 Ordered Medication Summary Discontinued Medications Generic Name Dose Route Start Last Admin Trade Name Vic PRN Reason Stop Dose Admin Sodium Chloride 1,000 mls @ 999 mls/hr 04/20/19 11:01 04/20/19 12:13 Sodium Chloride 0.9% 1000 Ml IV 04/20/19 12:01 Infused .Q1H1M STA Infusion Sodium Chloride Confirm 04/20/19 11:09 Sodium Chloride 0.9% 1000 Ml Administered 04/20/19 11:10 Dose 1,000 mls @ ud .ROUTE .STK-MED ONE Ketorolac Tromethamine 30 mg 04/20/19 11:01 04/20/19 11:12 Toradol 30 Mg Injection IV 04/20/19 11:02 Not Given STAT ONE Ketorolac Tromethamine Confirm 04/20/19 11:09 Toradol 30 Mg Injection Administered 04/20/19 11:10 Dose 30 mg .ROUTE .STK-MED ONE Ondansetron HCl 4 mg 04/20/19 11:01 04/20/19 11:13 Zofran 4 Mg/2 Ml Vial IV 04/20/19 11:02 Not Given STAT ONE Ondansetron HCl Confirm 04/20/19 11:09 Zofran 4 Mg/2 Ml Vial Administered 04/20/19 11:10 Dose 4 mg .ROUTE .STK-MED ONE Pantoprazole Sodium 40 mg 04/20/19 11:01 04/20/19 11:11 Protonix 40mg Tablet PO 04/20/19 11:02 40 mg STAT ONE Administration Pantoprazole Sodium Confirm 04/20/19 11:09 Protonix 40mg Tablet Administered 04/20/19 11:10 Dose 40 mg .ROUTE .STK-MED ONE Lab/Rad Data: Laboratory Result Diagrams 04/20/19 11:13 04/20/19 11:13 Laboratory Results 04/20/19 04/20/19 04/20/19 Range/Units 11:13 11:13 11:13 WBC 8.3 (4.0-10.5) K/mm3 RBC 4.80 (4.1-5.4) M/mm3 Hgb 13.4 (12.0-16.0) gm/dl Hct 40.9 (35-47) % MCV 85.2 (78-100) fl MCH 27.9 (26-32) pg MCHC 32.8 (32-36) g/dl RDW 14.7 H (11.5-14.0) % Plt Count 310 (150-450) K/mm3 MPV 11.1 H (7.5-11.0) fl Gran % 57.2 (36.0-66.0) % Eos # (Auto) 0.16 (0-0.5) Absolute Lymphs (auto) 2.59 (1.0-4.6) Absolute Monos (auto) 0.74 (0.0-1.3) Lymphocytes % 31.4 (24.0-44.0) % Monocytes % 9.0 (0.0-12.0) % Eosinophils % 1.9 (0.00-5.0) % Basophils % 0.5 (0.0-0.4) % Absolute Granulocytes 4.73 (1.4-6.9) Basophils # 0.04 (0-0.4) PT 11.8 (9.95-12.35) SECONDS INR 1.04 (0.8-3.0) Sodium 140 (137-145) mmol/L Potassium 3.4 L (3.5-5.1) mmol/L Chloride 103 (98-107) mmol/L Carbon Dioxide 28 (22-30) mmol/L Anion Gap 13.1 (5-15) MEQ/L BUN 18 H (7-17) mg/dL Creatinine 0.82 (0.52-1.04) mg/dL Estimated GFR > 60.0 ML/MIN Glucose 148 H (74-106) mg/dL Lactic Acid (0.4-2.0) Calcium 9.4 (8.4-10.2) mg/dL Total Bilirubin 0.30 (0.2-1.3) mg/dL AST 26 (14-36) U/L ALT 27 (0-35) U/L Alkaline Phosphatase 57 (38-126) U/L Serum Total Protein 8.1 (6.3-8.2) g/dL Albumin 4.7 (3.5-5.0) g/dL Amylase 66 (30-110) U/L Lipase 122 (23-300) U/L 04/20/19 Range/Units 11:01 WBC (4.0-10.5) K/mm3 RBC (4.1-5.4) M/mm3 Hgb (12.0-16.0) gm/dl Hct (35-47) % MCV (78-100) fl MCH (26-32) pg MCHC (32-36) g/dl RDW (11.5-14.0) % Plt Count (150-450) K/mm3 MPV (7.5-11.0) fl Gran % (36.0-66.0) % Eos # (Auto) (0-0.5) Absolute Lymphs (auto) (1.0-4.6) Absolute Monos (auto) (0.0-1.3) Lymphocytes % (24.0-44.0) % Monocytes % (0.0-12.0) % Eosinophils % (0.00-5.0) % Basophils % (0.0-0.4) % Absolute Granulocytes (1.4-6.9) Basophils # (0-0.4) PT (9.95-12.35) SECONDS INR (0.8-3.0) Sodium (137-145) mmol/L Potassium (3.5-5.1) mmol/L Chloride (98-107) mmol/L Carbon Dioxide (22-30) mmol/L Anion Gap (5-15) MEQ/L BUN (7-17) mg/dL Creatinine (0.52-1.04) mg/dL Estimated GFR ML/MIN Glucose (74-106) mg/dL Lactic Acid 1.9 (0.4-2.0) Calcium (8.4-10.2) mg/dL Total Bilirubin (0.2-1.3) mg/dL AST (14-36) U/L ALT (0-35) U/L Alkaline Phosphatase (38-126) U/L Serum Total Protein (6.3-8.2) g/dL Albumin (3.5-5.0) g/dL Amylase (30-110) U/L Lipase (23-300) U/L - Progress Progress: improved - Departure Departure Disposition: Home Clinical Impression: Biliary colic Referrals: TRAVON DIA MD [Primary Care Provider] - Instructions: Gallstones (DC) Prescriptions: Hydrocodone/APAP 5-325 Tab^^^ [[place] 5-325 Tablet^^^] 1 tab PO Q6HPRN PRN #10 tablet MDD 6 PRN Reason: Pain
[2019-04-20 12:53] VITALS: BP 146/73; PULSE 76; O2SAT 99
--- NOTE | 2019-04-20 17:57 | XRAY ---
Indication: Right upper quadrant pain. Multiple contiguous axial images obtained through the abdomen and pelvis without contrast. Comparison: March 24, 2017. Lung bases again demonstrates minimal bilateral dependent atelectasis without infiltrate or effusion. Heart is not enlarged. Stomach is distended with food/fluid. Noncontrasted stomach and bowel loops again appear nonobstructed. Normal appendix. Stable minimal descending diverticulosis. No free fluid/air. Liver now demonstrates diffuse fatty attenuation. Gallbladder now demonstrates a few tiny gallstones/gravel. Remaining liver, gallbladder, pancreas, spleen, adrenal glands, kidneys, ureters, bladder, uterus, and aorta appear unremarkable for noncontrast exam. Osseous structures intact. Impression: 1. New tiny gallstones/gravel. Gallbladder sonogram may yield further information. 2. Incidental fatty liver and minimal colonic diverticulosis. Comment: Preliminary interpretation was made by [facility]. No critical discrepancy.
== END 2019-04-20 12:57 | disposition home or self-care (01) ==
LOC: ED 10:43
DX: K80.50 Calculus of bile duct without cholangitis or cholecystitis without obstruction (principal)
CPT/HCPCS: 36000; 36415; 74176; 80053; 81001; 82150; 83605; 83690; 85025; 85610; 96360; 96374; 99284; J1885; J2405; A9270-GY

== ENCOUNTER 2019-05-06 05:56 | Day surgery (SDC) | payer BC ==
[2019-05-06] MEDS ORDERED: DIPRIVAN 200 MG/20 ML IV ONE (05:57)
[2019-05-06] MEDS ORDERED: Sensorcaine 0.25% 10 ML ONE (06:46)
[2019-05-06] MEDS ORDERED: CEFAZOLIN 2 GM-D5W BAG** 2 GM/50 ML ML IV SCH (07:00)
[2019-05-06] MEDS ORDERED: Lactated Ringers 1,000 ML IV SCH (07:00)
[2019-05-06] MEDS ORDERED: Versed 2 MG/2 ML Injection ONE ×2 (07:17→08:48)
[2019-05-06] MEDS ORDERED: Versed 2 MG/2 ML Injection IV ONE (07:23)
--- NOTE | 2019-05-06 08:31 | HP ---
DATE OF SURGERY: 05/06/2019 ADMISSION DIAGNOSIS: Symptomatic cholelithiasis. ANTICIPATED PROCEDURE: Cholecystectomy. HISTORY OF PRESENT ILLNESS: The patient had painful five days of right upper quadrant pain and went to the emergency room. She has always had some acid reflux but this was different. She was studied. She was noted to have cholelithiasis. She was referred to our office by Dr. Acevedo/Sheri Zaidi. PAST MEDICAL HISTORY: ALLERGIES: SULFA. CELEXA. MEDICATIONS: Xanax, levothyroxine, Toprol, atorvastatin, Fenofibrate, omeprazole. PAST SURGICAL HISTORY: Tubal ligation 1990. SOCIAL HISTORY: One pack per day. ETOH negative. FAMILY HISTORY: Negative. REVIEW OF SYSTEMS: Hypothyroidism controlled. Hypercholesterolism controlled. Hypertension controlled. Reflux disease controlled. PHYSICAL EXAMINATION: VITAL SIGNS: Normal. CHEST: Clear. COR: Regular. ABDOMEN: Satisfactory. IMPRESSION: Laparoscopic cholecystectomy discussed and she would like to proceed. PLAN: Laparoscopic cholecystectomy possible open.
[2019-05-06] MEDS ORDERED: Zemuron 100 MG/10 ML ONE (08:48)
[2019-05-06] MEDS ORDERED: SUBLIMAZE 250 MCG/5 ML ONE (08:49)
[2019-05-06] MEDS ORDERED: BRIDION 200MG/2ML IV ONE (09:18)
[2019-05-06] MEDS ORDERED: TORAdol 30 mg Injection ONE (09:33)
[2019-05-06] MEDS ORDERED: DILAUDID 2 MG INJECTION ONE (09:34)
[2019-05-06] MEDS ORDERED: SUBLIMAZE 100 MCG/2 ML ONE (09:54)
[2019-05-06 10:32] VITALS: PULSE 64; O2SAT 97
[2019-05-06 11:02] VITALS: BP 127/62
--- NOTE | 2019-05-06 15:23 | OP ---
SURGERY DATE/TIME: 05/06/2019 0838 PREOPERATIVE DIAGNOSIS: Symptomatic cholelithiasis. POSTOPERATIVE DIAGNOSIS: Symptomatic cholelithiasis. PROCEDURE: Laparoscopic cholecystectomy. SURGEON: Dr. Middleton. ANESTHESIA: General endotracheal tube. COMPLICATIONS: None. CONDITION: Stable. INDICATIONS: A patient with upper abdominal pain, ultrasound positive. Seen and examined. Procedure discussed in detail and wished to proceed. DESCRIPTION OF PROCEDURE AND FINDINGS: Taken to surgery. General anesthetic, routine prep and drape. Veress needle inserted. Opening pressure of 1, insufflating pressure 14. Four - 5's. Good visualization. Cystic duct defined. There was a fair amount of scarring here. It was slightly tedious. Cystic artery defined. Both structures triply clipped and transected. Clips noted across and well approximated. Gallbladder rolled out of gallbladder fossa. The gallbladder delivered through upper abdominal port. Field clean and dry. CO2 exsufflated. Port site closed with 0 Vicryl, 4-0 Vicryl and Steri-Strips. The patient tolerated the procedure satisfactorily.
== END 2019-05-06 11:05 | disposition home or self-care (01) ==
LOC: SDC 05:56
PROVIDERS: ATTEND Surgery
DX: K80.20 Calculus of gallbladder without cholecystitis without obstruction (principal); I10 Essential (primary) hypertension; Z72.0 Tobacco use; F41.9 Anxiety disorder, unspecified; E03.9 Hypothyroidism, unspecified; K21.9 Gastro-esophageal reflux disease without esophagitis
CPT/HCPCS: 84703; 88304; J0690; J1170; J1885; J2250; J2704; J3010

== ENCOUNTER 2019-05-18 21:55 | Emergency (ER) | payer BC ==
[2019-05-18 23:59] LABS: Appearance CLOUDY (CLEAR); Bilirubin NEGATIVE (NEGATIVE); Blood NEGATIVE Ery/ul (0-5); Epithelial Cells MODERATE /HPF (FEW); Glucose NEGATIVE (NEGATIVE); Ketones NEGATIVE (NEGATIVE); Leukocyte Esterase NEGATIVE (NEGATIVE); Mucus SLIGHT /HPF (NEGATIVE); Nitrite NEGATIVE (NEGATIVE); Protein,Urine Dip NEGATIVE (Negative); Specific Gravity 1.023 (1.005-1.025); Urobilinogen NEGATIVE mg/dL (0-1)
[2019-05-19] MEDS ORDERED: MORPHINE SULFATE 2 MG INJ IV ONE (01:07)
[2019-05-19] MEDS ORDERED: Sodium Chloride 0.9% 1000 ML 1,000 ML IV STA (01:07)
[2019-05-19 01:13] LABS: Absolute Neutrophil Ct (ANC) 10.04 (1.4-6.9); BASOPHIL % 0.4 % (0.0-0.4); Basophil (Absolute #) 0.05 (0-0.4); Eosinophil % 2.5 % (0.00-5.0); Eosinophil (Absolute #) 0.35 (0-0.5); Hematocrit 38.3 % (35-47); Hemoglobin 12.6 gm/dl (12.0-16.0); Lymphocyte (Absolute #) 2.27 (1.0-4.6); Lymphocytes % 16.4 % (24.0-44.0); Mean Cell Volume 85.1 fl (78-100); Mean Corpuscular Hgb Concent. 32.9 g/dl (32-36); Mean Platelet Volume 11.1 fl (7.5-11.0); Monocyte (Absolute #) 1.15 (0.0-1.3); Monocytes % 8.3 % (0.0-12.0); Neutrophil % 72.4 % (36.0-66.0); Platelet Count 296 K/mm3 (150-450); White Blood Count 13.9 K/mm3 (4.0-10.5)
[2019-05-19 01:19] LABS: ALBUMIN 4.3 g/dL (3.5-5.0); ALKALINE PHOSPHATASE 68 U/L (38-126); ANION GAP 12.4 MEQ/L (5-15); BLOOD UREA NITROGEN 16 mg/dL (7-17); CHLORIDE 107 mmol/L (98-107); Calcium 9.4 mg/dL (8.4-10.2); Carbon Dioxide 24 mmol/L (22-30); Creatinine 1 0.62 mg/dL (0.52-1.04); Glucose 96 mg/dL (74-106); LIPASE 81 U/L (23-300); Potassium 3.9 mmol/L (3.5-5.1); SGOT/AST 42 U/L (14-36); SGPT/ALT 29 U/L (0-35); SODIUM 139 mmol/L (137-145); Total Protein 7.6 g/dL (6.3-8.2)
[2019-05-19] MEDS ORDERED: MORPHINE SULFATE 2 MG INJ ONE (01:57)
[2019-05-19] MEDS ORDERED: Sodium Chloride 0.9% 1000 ML 1,000 ML ONE (01:57)
[2019-05-19 03:13] VITALS: O2SAT 98
--- NOTE | 2019-05-19 04:49 | ERPHSYRPT ---
- History of Present Illness Time Seen by Provider: 05/18/19 23:10 Historian: patient Exam Limitations: no limitations Patient Subjective Stated Complaint: Patient states " I am having alot of right sided ABD pain". Patient states "When i breath in is when the pain is the worst. " Patient states she just had gallbladder removed 2 weeks ago. Triage Nursing Assessment: Patient arrived to ER per self. Patient A/O times 4. Patient answers questions appropriatley. Patient with + BS times 4 quads. ABD large, obese and tender on right side upon palpitation. Incision chou to ABD R/ T S/P gall bladder removal with no S/S of infection noted. Patient states she has been having loose stools today. Patient stated she had some nausea earlier but doesnt now. Patient denies vomiting. Patient states she has had some indigestion today. Oral mucosa clean, pink, moist. No S/S of dehydration noted. Skin turgor < 3 seconds. Physician History: She is a 49-year-old female presents to our ED with complaints of right upper quadrant and flank pain. Symptoms started several days ago and has gotten progressively worse. Pain worse with deep inspiration. Pain improved with rest. Patient advises staff that she had a laparoscopic cholecystectomy done approximately 2 weeks ago. No complications. Patient voices no other complaints. No trauma. No fevers. No nausea or vomiting. No diarrhea. She voiced other complaints at this time. Allergies/Adverse Reactions: egg Allergy (Severe, Verified 04/20/19 11:11) Tightness of Throat citalopram [From Celexa] Allergy (Mild, Verified 05/02/19 13:18) Hives Sulfa (Sulfonamide Antibiotics) [Sulfa(Sulfonamide Antibiotics)] Allergy (Mild, Verified 01/01/18 11:21) Rash Home Medications: ALPRAZolam [Xanax 0.5 mg] 0.5 mg PO TID PRN 05/03/13 [History] Levothyroxine Sodium 100 Mcg [Synthroid 100 Mcg] 75 mcg PO DAILY 03/24/17 [ History] Atorvastatin Calcium 20 mg PO HS 09/13/17 [History] Metoprolol Succinate [Toprol Xl] 50 mg PO DAILY 09/13/17 [History] Fenofibrate,Micronized [Fenofibrate] 200 mg PO HS 04/20/19 [History] Omeprazole 40 mg PO DAILY 04/20/19 [History] Hx Tetanus, Diphtheria Vaccination/Date Given: No Hx Influenza Vaccination/Date Given: No Hx Pneumococcal Vaccination/Date Given: No Immunizations Up to Date: Yes - Review of Systems Constitutional: No Fever, No Chills Eyes: No Symptoms Ears, Nose, & Throat: No Symptoms Respiratory: No Cough, No Dyspnea Cardiac: No Chest Pain, No Edema, No Syncope Abdominal/Gastrointestinal: Abdominal Pain, Other (Right upper quadrant pain.), No Nausea, No Vomiting, No Diarrhea Genitourinary Symptoms: No Dysuria Musculoskeletal: No Symptoms, No Back Pain, No Neck Pain Skin: No Symptoms, No Rash Neurological: No Symptoms, No Dizziness, No Focal Weakness, No Sensory Changes Psychological: No Symptoms Endocrine: No Symptoms All Other Systems: Reviewed and Negative - Past Medical History Pertinent Past Medical History: Yes Neurological History: Migraines ENT History: No Pertinent History Cardiac History: High Cholesterol, Hypertension Respiratory History: Other Endocrine Medical History: No Pertinent History Musculoskeletal History: No Pertinent History GI Medical History: GERD, Gallbladder Disease History: No Pertinent History Psycho-Social History: Anxiety Female Reproductive Disorders: No Pertinent History Other Medical History: SOB with anxiety. Hx palpatations - Past Surgical History Past Surgical History: Yes Neuro Surgical History: No Pertinent History Cardiac: No Pertinent History Respiratory: No Pertinent History Gastrointestinal: Cholecystectomy Genitourinary: No Pertinent History Musculoskeletal: No Pertinent History Female Surgical History: Tubal Ligation - Social History Smoking Status: Current every day smoker How long have you smoked: 30 years Exposure to second hand smoke: Yes Alcohol Use: Socially Drug Use: none Patient Lives Alone: No Significant Family History: no pertinent family hx - Female History Hx Last Menstrual Period: Tubal Hx Now: No - Nursing Vital Signs Nursing Vital Signs: Initial Vital Signs Temperature 98.6 F 05/18/19 22:53 Pulse Rate 89 05/18/19 22:53 Respiratory Rate 16 05/18/19 22:53 Blood Pressure 126/77 05/18/19 22:53 O2 Sat by Pulse Oximetry 97 05/18/19 22:53 Pain Scale Pain Intensity 5 - Physical Exam General Appearance: no apparent distress, alert Eye Exam: PERRL/EOMI, eyes nml inspection Ears, Nose, Throat Exam: normal ENT inspection, pharynx normal, moist mucous membranes Neck Exam: normal inspection, non-tender, supple, full range of motion Respiratory Exam: normal breath sounds, lungs clear, No respiratory distress Cardiovascular Exam: regular rate/rhythm, normal heart sounds Gastrointestinal/Abdomen Exam: soft, tenderness (Mild tenderness to palpation right upper quadrant. No guarding. No rebound. Overlying soft tissue intact. Surgical incision sites are well-healed.), No mass Pelvic Exam: not done Back Exam: normal inspection, normal range of motion, No CVA tenderness, No vertebral tenderness Extremity Exam: normal inspection, normal range of motion, pelvis stable Neurologic Exam: alert, oriented x 3, cooperative, normal mood/affect, nml cerebellar function, sensation nml, No motor deficits Skin Exam: normal color, warm, dry SpO2 Interpretation: normal SpO2: 98 O2 Delivery: Room Air - Course Nursing assessment & vital signs reviewed: Yes - CT Exams Abdomen/Pelvis CT Interpretation: Tele-radiologist Report (Minimal stranding involving the mesentery inferior to the liver possibly secondary to recent surgery. Fatty infiltration of the liver left renal cyst colonic diverticulosis) Chest CT Interpretation: Tele-radiologist Report (No PE. NO acute pathology, old granulomatous disease) Ordered Tests: Active Orders 24 hr Category Date Time Status IV Insertion STAT Care 05/19/19 01:07 Active ABDOMEN AND PELVIS W CONTRAST [CT] Stat Exams 05/19/19 01:52 Taken CHEST WITH CONTRAST [CT] Stat Exams 05/19/19 01:52 Taken CBC W DIFF Stat Lab 05/19/19 01:07 Completed CMP Stat Lab 05/19/19 01:07 Completed D-DIMER QUANTITATIVE Stat Lab 05/19/19 01:08 Completed LIPASE Stat Lab 05/19/19 01:07 Completed UA W/RFX UR CULTURE Stat Lab 05/18/19 23:53 Completed Medication Summary Discontinued Medications Generic Name Dose Route Start Last Admin Trade Name Freq PRN Reason Stop Dose Admin Sodium Chloride 1,000 mls @ 999 mls/hr 05/19/19 01:07 05/19/19 03:05 Sodium Chloride 0.9% 1000 Ml IV 05/19/19 02:07 Infused .Q1H1M STA Infusion Sodium Chloride Confirm 05/19/19 01:57 Sodium Chloride 0.9% 1000 Ml Administered 05/19/19 01:58 Dose 1,000 mls @ ud .ROUTE .STK-MED ONE Morphine Sulfate 2 mg 05/19/19 01:07 05/19/19 02:00 Morphine Sulfate 2 Mg Inj IV 05/19/19 01:08 2 mg STAT ONE Administration Morphine Sulfate Confirm 05/19/19 01:57 Morphine Sulfate 2 Mg Inj Administered 05/19/19 01:58 Dose 2 mg .ROUTE .STK-MED ONE Lab/Rad Data: Laboratory Result Diagrams 05/19/19 01:07 05/19/19 01:07 Laboratory Results 05/19/19 05/19/19 05/19/19 Range/Units 01:08 01:07 01:07 WBC 13.9 H (4.0-10.5) K/mm3 RBC 4.50 (4.1-5.4) M/mm3 Hgb 12.6 (12.0-16.0) gm/dl Hct 38.3 (35-47) % MCV 85.1 (78-100) fl MCH 28.0 (26-32) pg MCHC 32.9 (32-36) g/dl RDW 14.0 (11.5-14.0) % Plt Count 296 (150-450) K/mm3 MPV 11.1 H (7.5-11.0) fl Gran % 72.4 H (36.0-66.0) % Eos # (Auto) 0.35 (0-0.5) Absolute Lymphs (auto) 2.27 (1.0-4.6) Absolute Monos (auto) 1.15 (0.0-1.3) Lymphocytes % 16.4 L (24.0-44.0) % Monocytes % 8.3 (0.0-12.0) % Eosinophils % 2.5 (0.00-5.0) % Basophils % 0.4 (0.0-0.4) % Absolute Granulocytes 10.04 H (1.4-6.9) Basophils # 0.05 (0-0.4) D-Dimer 712 H* (215-500) ng/mL Sodium 139 (137-145) mmol/L Potassium 3.9 (3.5-5.1) mmol/L Chloride 107 (98-107) mmol/L Carbon Dioxide 24 (22-30) mmol/L Anion Gap 12.4 (5-15) MEQ/L BUN 16 (7-17) mg/dL Creatinine 0.62 (0.52-1.04) mg/dL Estimated GFR > 60.0 ML/MIN Glucose 96 (74-106) mg/dL Calcium 9.4 (8.4-10.2) mg/dL Total Bilirubin 0.50 (0.2-1.3) mg/dL AST 42 H (14-36) U/L ALT 29 (0-35) U/L Alkaline Phosphatase 68 (38-126) U/L Serum Total Protein 7.6 (6.3-8.2) g/dL Albumin 4.3 (3.5-5.0) g/dL Lipase 81 (23-300) U/L Urine Color (YELLOW) Urine Appearance (CLEAR) Urine pH (5-6) Ur Specific [place] (1.005-1.025) Urine Protein (Negative) Urine Ketones (NEGATIVE) Urine Blood (0-5) Yossi/ul Urine Nitrite (NEGATIVE) Urine Bilirubin (NEGATIVE) Urine Urobilinogen (0-1) mg/dL Ur Leukocyte Esterase (NEGATIVE) Urine WBC (Auto) (0-5) /HPF Urine RBC (Auto) (0-2) /HPF U Epithel Cells (Auto) (FEW) /HPF Urine Bacteria (Auto) (NEGATIVE) /HPF Urine Mucus (Auto) (NEGATIVE) /HPF Urine Culture Reflexed (NO) Urine Glucose (NEGATIVE) mg/dL 05/18/19 Range/Units 23:53 WBC (4.0-10.5) K/mm3 RBC (4.1-5.4) M/mm3 Hgb (12.0-16.0) gm/dl Hct (35-47) % MCV (78-100) fl MCH (26-32) pg MCHC (32-36) g/dl RDW (11.5-14.0) % Plt Count (150-450) K/mm3 MPV (7.5-11.0) fl Gran % (36.0-66.0) % Eos # (Auto) (0-0.5) Absolute Lymphs (auto) (1.0-4.6) Absolute Monos (auto) (0.0-1.3) Lymphocytes % (24.0-44.0) % Monocytes % (0.0-12.0) % Eosinophils % (0.00-5.0) % Basophils % (0.0-0.4) % Absolute Granulocytes (1.4-6.9) Basophils # (0-0.4) D-Dimer (215-500) ng/mL Sodium (137-145) mmol/L Potassium (3.5-5.1) mmol/L Chloride (98-107) mmol/L Carbon Dioxide (22-30) mmol/L Anion Gap (5-15) MEQ/L BUN (7-17) mg/dL Creatinine (0.52-1.04) mg/dL Estimated GFR ML/MIN Glucose (74-106) mg/dL Calcium (8.4-10.2) mg/dL Total Bilirubin (0.2-1.3) mg/dL AST (14-36) U/L ALT (0-35) U/L Alkaline Phosphatase (38-126) U/L Serum Total Protein (6.3-8.2) g/dL Albumin (3.5-5.0) g/dL Lipase (23-300) U/L Urine Color YELLOW (YELLOW) Urine Appearance CLOUDY (CLEAR) Urine pH 5.0 (5-6) Ur Specific [place] 1.023 (1.005-1.025) Urine Protein NEGATIVE (Negative) Urine Ketones NEGATIVE (NEGATIVE) Urine Blood NEGATIVE (0-5) Yossi/ul Urine Nitrite NEGATIVE (NEGATIVE) Urine Bilirubin NEGATIVE (NEGATIVE) Urine Urobilinogen NEGATIVE (0-1) mg/dL Ur Leukocyte Esterase NEGATIVE (NEGATIVE) Urine WBC (Auto) 3-5 (0-5) /HPF Urine RBC (Auto) NONE (0-2) /HPF U Epithel Cells (Auto) MODERATE (FEW) /HPF Urine Bacteria (Auto) NONE (NEGATIVE) /HPF Urine Mucus (Auto) SLIGHT (NEGATIVE) /HPF Urine Culture Reflexed NO (NO) Urine Glucose NEGATIVE (NEGATIVE) mg/dL - Progress Progress: improved Progress Note: 05/19/19 06:26 Patient reassessed. She feels well. Patient declined pain medication. CT chest abdomen pelvis negative for acute pathology. No pulmonary embolism. There is some stranding just below the liver radiologist feels this is residual from the surgical procedure. Will discharge patient home. Plan of care discussed with patient. She agrees to follow-up with her general surgeon regarding her ongoing pain within 48 hours for reevaluation. Counseled pt/family regarding: lab results, diagnosis, need for follow-up, rad results - Departure Departure Disposition: Home Clinical Impression: Abdominal pain, Hepatic steatosis, Renal cyst, Lung granuloma Condition: Good Critical Care Time: No Referrals: TRAVON DIA MD [Primary Care Provider] - Additional Instructions: Discharge/Care Plan WALKER ALVAREZ was seen on 05/19/19 in the Emergency Room. The patient was counseled regarding Diagnosis,Lab results, Imaging studies, need for follow up and when to return to the Emergency Room. Prescriptions given: Discharge Note I have spoken with the patient and/or caregivers. I have explained the patient' s condition, diagnosis and treatment plan based on the information available to me at this time. I have answered the patient's and/or caregiver's questions and addressed any concerns. The patient and/or caregivers have as good understanding of the patient's diagnosis, condition and treatment plan as can be expected at this point. The vital signs have been stable. The patient's condition is stable and appropriate for discharge from the emergency department. The patient will pursue further outpatient evaluation with the primary care physician or other designated or consulting physician as outlined in the discharge instructions. The patient and/or caregivers are agreeable to this plan of care and follow-up instructions have been explained in detail. The patient and/or caregivers have received these instruction. The patient/and or caregivers are aware that any significant change in condition or worsening of symptoms should prompt an immediate return to this or the closest emergency department or call 911.
[2019-05-19 06:41] VITALS: BP 128/72; PULSE 86
--- NOTE | 2019-05-19 09:16 | XRAY ---
Indication: Right flank pain. Status post cholecystectomy. Multiple contiguous axial images obtained through the abdomen and pelvis using 80 cc Isovue 370 contrast only. Comparison: Noncontrast exam April 20, 2019. CT chest reported separately. Noncontrasted stomach and bowel loops remain nonobstructed. Normal appendix. Stable minimal descending diverticulosis. Interval cholecystectomy with tiny infrahepatic free fluid. No walled off fluid collection or free air. Stable fatty liver and 1 cm left renal cyst. Remaining liver, pancreas, spleen, adrenal glands, kidneys, ureters, bladder, uterus, and aorta appear unremarkable. No pathologic retroperitoneal lymphadenopathy. Impression: 1. Status post cholecystectomy without complications. 2. Stable fatty liver, colonic diverticulosis, and left renal cysts. Comment: Preliminary interpretation was made by [facility]. No critical discrepancy.
--- NOTE | 2019-05-19 09:20 | XRAY ---
Indication: Right flank pain. Elevated d-dimer. Status post cholecystectomy. Multiple contiguous axial images obtained through the chest using 80 cc Isovue 370 contrast and PE protocol. Comparison: None There is satisfactory opacification of the pulmonary arteries to include the lobar and segmental branches. No filling defect or pulmonary embolus. Heart is not enlarged. Aorta is normal in course and caliber. No pathologic mediastinal/hilar lymphadenopathy. Lungs demonstrate bilateral dependent atelectasis, mild bibasilar fibrosis/scarring, and tiny right upper lobe calcified granuloma. No suspicious pulmonary mass, infiltrate, or effusion. Bony thorax intact. CT abdomen/pelvis reported separately. Impression: Negative pulmonary embolus. No acute cardiopulmonary abnormalities. Comment: Preliminary interpretation was made by C. No critical discrepancy.
== END 2019-05-19 06:10 | disposition home or self-care (01) ==
LOC: ED 21:55
DX: R10.11 Right upper quadrant pain (principal); R10.9 Unspecified abdominal pain; K76.0 Fatty (change of) liver, not elsewhere classified; N28.1 Cyst of kidney, acquired; J84.10 Pulmonary fibrosis, unspecified; Z98.890 Other specified postprocedural states; Z79.899 Other long term (current) drug therapy; E78.00 Pure hypercholesterolemia, unspecified; I10 Essential (primary) hypertension; F17.200 Nicotine dependence, unspecified, uncomplicated
CPT/HCPCS: 36000; 36415; 71260; 74177; 80053; 81001; 83690; 85025; 85379; 96360; 99284; J2270

== ENCOUNTER 2019-11-29 19:18 | Emergency (ER) | payer BC ==
[2019-11-29] MEDS ORDERED: TORAdol 30 mg Injection IV ONE (19:51)
[2019-11-29 20:15] LABS: BASOPHIL % 0.3 % (0.0-0.4); Basophil (Absolute #) 0.03 (0-0.4); Eosinophil % 1.5 % (0.00-5.0); Eosinophil (Absolute #) 0.15 (0-0.5); Hematocrit 42.9 % (35-47); Hemoglobin 13.8 gm/dl (12.0-16.0); Lymphocyte (Absolute #) 2.37 (1.0-4.6); Lymphocytes % 23.4 % (24.0-44.0); Mean Cell Volume 86.1 fl (78-100); Mean Corpuscular Hemoglobin 27.7 pg (26-32); Mean Corpuscular Hgb Concent. 32.2 g/dl (32-36); Mean Platelet Volume 11.7 fl (7.5-11.0); Monocyte (Absolute #) 0.97 (0.0-1.3); Monocytes % 9.6 % (0.0-12.0); Neutrophil % 65.2 % (36.0-66.0); Platelet Count 311 K/mm3 (150-450); Red Blood Count 4.98 M/mm3 (4.1-5.4); Red Cell Distribution Width 14.5 % (11.5-14.0); White Blood Count 10.1 K/mm3 (4.0-10.5)
--- NOTE | 2019-11-29 20:16 | ERPHSYRPT ---
- History of Present Illness Time Seen by Provider: 11/29/19 19:41 Source: patient Exam Limitations: no limitations Physician History: 49 years old female with history of hypertension, hyperlipidemia, hypothyroidism, tobacco abuse presented in the ER with chief complaint of flulike symptoms since yesterday. Patient reported started with nasal/sinus congestion with wet to dry cough and chest soreness along with generalized body aches. Denies any fever or chills or shortness of breath. Denies any history of coronary artery disease. Denies any sick contact. Timing/Duration: day(s) (2), gradual onset, worse Cough Quality/Degree: mild, dry cough Possible Cause: no prior episodes Modifying Factors: Improves With: coughing Associated Symptoms: chest pain/soreness, cough, facial pain, muscle aches, nasal congestion, sinus infection, sore throat, No fever, No shortness of breath Allergies/Adverse Reactions: egg Allergy (Severe, Verified 05/19/19 06:30) Tightness of Throat citalopram [From Celexa] Allergy (Mild, Verified 05/19/19 06:30) Hives Sulfa (Sulfonamide Antibiotics) [Sulfa(Sulfonamide Antibiotics)] Allergy (Mild, Verified 05/19/19 06:30) Rash Home Medications: ALPRAZolam [Xanax 0.5 mg] 0.5 mg PO TID PRN 05/03/13 [History] Levothyroxine Sodium 100 Mcg [Synthroid 100 Mcg] 75 mcg PO DAILY 03/24/17 [History] Atorvastatin Calcium 20 mg PO HS 09/13/17 [History] Metoprolol Succinate [Toprol Xl] 50 mg PO DAILY 09/13/17 [History] Fenofibrate,Micronized [Fenofibrate] 200 mg PO HS 04/20/19 [History] Omeprazole 40 mg PO DAILY 04/20/19 [History] Hx Tetanus, Diphtheria Vaccination/Date Given: No Hx Influenza Vaccination/Date Given: No Hx Pneumococcal Vaccination/Date Given: No - Review of Systems Constitutional: Fatigue, Malaise, Weakness Eyes: No Symptoms Ears, Nose, & Throat: Nose Congestion Respiratory: Cough Cardiac: Chest Pain Abdominal/Gastrointestinal: Diarrhea Genitourinary Symptoms: No Symptoms Musculoskeletal: Myalgias Skin: No Symptoms Neurological: No Symptoms Psychological: No Symptoms Endocrine: No Symptoms Hematologic/Lymphatic: No Symptoms - Past Medical History Pertinent Past Medical History: Yes Neurological History: Migraines ENT History: No Pertinent History Cardiac History: High Cholesterol, Hypertension Respiratory History: Other Endocrine Medical History: No Pertinent History Musculoskeletal History: No Pertinent History GI Medical History: GERD, Gallbladder Disease History: No Pertinent History Psycho-Social History: Anxiety Female Reproductive Disorders: No Pertinent History Other Medical History: SOB with anxiety. Hx palpatations - Past Surgical History Past Surgical History: Yes Neuro Surgical History: No Pertinent History Cardiac: No Pertinent History Respiratory: No Pertinent History Gastrointestinal: Cholecystectomy Genitourinary: No Pertinent History Musculoskeletal: No Pertinent History Female Surgical History: Tubal Ligation - Social History Smoking Status: Current every day smoker How long have you smoked: 30 years Exposure to second hand smoke: Yes Alcohol Use: Socially Drug Use: none Patient Lives Alone: No Significant Family History: no pertinent family hx - Female History Hx Now: (unkn) - Nursing Vital Signs Nursing Vital Signs: Initial Vital Signs Temperature 99 F 11/29/19 19:52 Pulse Rate 85 11/29/19 19:52 Respiratory Rate 22 11/29/19 19:52 Blood Pressure 184/106 11/29/19 19:52 O2 Sat by Pulse Oximetry 97 11/29/19 19:52 Pain Scale Pain Intensity 0 - Physical Exam General Appearance: no apparent distress, alert Eye Exam: PERRL/EOMI, eyes nml inspection Ears, Nose, Throat Exam: normal ENT inspection, TMs normal, pharyngeal erythema Neck Exam: normal inspection, supple, full range of motion Respiratory Exam: normal breath sounds, lungs clear Cardiovascular Exam: regular rate/rhythm, normal heart sounds Gastrointestinal/Abdomen Exam: soft, normal bowel sounds, No tenderness Back Exam: normal inspection, normal range of motion Extremity Exam: normal inspection, normal range of motion Neurologic Exam: alert, oriented x 3, cooperative Skin Exam: normal color, warm SpO2 Interpretation: normal O2 Delivery: Room Air - Course Nursing assessment & vital signs reviewed: Yes EKG Interpreted by Me: RATE, Sinus Rhythm, NORMAL AXIS, NORMAL INTERVALS, NORMAL QRS Ordered Tests: Active Orders 24 hr Category Date Time Status IV Insertion STAT Care 11/29/19 19:51 Completed CHEST 1 VIEW (PORTABLE) Stat Exams 11/29/19 19:52 Taken CBC W DIFF Stat Lab 11/29/19 20:10 Completed CMP Stat Lab 11/29/19 20:10 Completed HCG,QUALITATIVE URINE Stat Lab 11/29/19 21:34 Completed UA W/RFX UR CULTURE Stat Lab 11/29/19 21:38 Completed Medication Summary Discontinued Medications Generic Name Dose Route Start Last Admin Trade Name Vic PRN Reason Stop Dose Admin Ketorolac Tromethamine 30 mg 11/29/19 19:51 11/29/19 20:40 Toradol 30 Mg Injection IV 11/29/19 19:52 Not Given STAT ONE Ketorolac Tromethamine Confirm 11/29/19 20:37 Toradol 30 Mg Injection Administered 11/29/19 20:38 Dose 30 mg .ROUTE .STK-MED ONE Prednisone 60 mg 11/29/19 21:58 11/29/19 22:03 Deltasone 20 Mg PO 11/29/19 21:59 60 mg STAT ONE Administration Prednisone Confirm 11/29/19 22:02 Deltasone 20 Mg Administered 11/29/19 22:03 Dose 60 mg .ROUTE .STK-MED ONE Lab/Rad Data: Laboratory Result Diagrams 11/29/19 20:10 11/29/19 20:10 Laboratory Results 11/29/19 11/29/19 11/29/19 Range/Units 21:38 21:34 20:10 WBC (4.0-10.5) K/mm3 RBC (4.1-5.4) M/mm3 Hgb (12.0-16.0) gm/dl Hct (35-47) % MCV (78-100) fl MCH (26-32) pg MCHC (32-36) g/dl RDW (11.5-14.0) % Plt Count (150-450) K/mm3 MPV (7.5-11.0) fl Gran % (36.0-66.0) % Eos # (Auto) (0-0.5) Absolute Lymphs (auto) (1.0-4.6) Absolute Monos (auto) (0.0-1.3) Lymphocytes % (24.0-44.0) % Monocytes % (0.0-12.0) % Eosinophils % (0.00-5.0) % Basophils % (0.0-0.4) % Absolute Granulocytes (1.4-6.9) Basophils # (0-0.4) Sodium 140 (137-145) mmol/L Potassium 3.9 (3.5-5.1) mmol/L Chloride 107 (98-107) mmol/L Carbon Dioxide 23 (22-30) mmol/L Anion Gap 14.0 (5-15) MEQ/L BUN 13 (7-17) mg/dL Creatinine 0.73 (0.52-1.04) mg/dL Estimated GFR > 60.0 ML/MIN Glucose 129 H (74-106) mg/dL Calcium 9.8 (8.4-10.2) mg/dL Total Bilirubin 0.30 (0.2-1.3) mg/dL AST 42 H (14-36) U/L ALT 52 H (0-35) U/L Alkaline Phosphatase 68 (38-126) U/L Serum Total Protein 8.4 H (6.3-8.2) g/dL Albumin 4.9 (3.5-5.0) g/dL Urine Color YELLOW (YELLOW) Urine Appearance SLIGHTLY CLOUDY (CLEAR) Urine pH 5.0 (5-6) Ur Specific Worth 1.020 (1.005-1.025) Urine Protein NEGATIVE (Negative) Urine Ketones NEGATIVE (NEGATIVE) Urine Blood NEGATIVE (0-5) Yossi/ul Urine Nitrite NEGATIVE (NEGATIVE) Urine Bilirubin NEGATIVE (NEGATIVE) Urine Urobilinogen NEGATIVE (0-1) mg/dL Ur Leukocyte Esterase SMALL (NEGATIVE) Urine WBC (Auto) 3-5 (0-5) /HPF Urine RBC (Auto) NONE SEEN (0-2) /HPF U Epithel Cells (Auto) RARE (FEW) /HPF Urine Bacteria (Auto) NONE SEEN (NEGATIVE) /HPF Urine Mucus (Auto) SLIGHT (NEGATIVE) /HPF Urine Culture Reflexed NO (NO) Urine Glucose NEGATIVE (NEGATIVE) mg/dL Urine HCG, Qual NEGATIVE (Negative) 11/29/19 Range/Units 20:10 WBC 10.1 (4.0-10.5) K/mm3 RBC 4.98 (4.1-5.4) M/mm3 Hgb 13.8 (12.0-16.0) gm/dl Hct 42.9 (35-47) % MCV 86.1 (78-100) fl MCH 27.7 (26-32) pg MCHC 32.2 (32-36) g/dl RDW 14.5 H (11.5-14.0) % Plt Count 311 (150-450) K/mm3 MPV 11.7 H (7.5-11.0) fl Gran % 65.2 (36.0-66.0) % Eos # (Auto) 0.15 (0-0.5) Absolute Lymphs (auto) 2.37 (1.0-4.6) Absolute Monos (auto) 0.97 (0.0-1.3) Lymphocytes % 23.4 L (24.0-44.0) % Monocytes % 9.6 (0.0-12.0) % Eosinophils % 1.5 (0.00-5.0) % Basophils % 0.3 (0.0-0.4) % Absolute Granulocytes 6.60 (1.4-6.9) Basophils # 0.03 (0-0.4) Sodium (137-145) mmol/L Potassium (3.5-5.1) mmol/L Chloride (98-107) mmol/L Carbon Dioxide (22-30) mmol/L Anion Gap (5-15) MEQ/L BUN (7-17) mg/dL Creatinine (0.52-1.04) mg/dL Estimated GFR ML/MIN Glucose (74-106) mg/dL Calcium (8.4-10.2) mg/dL Total Bilirubin (0.2-1.3) mg/dL AST (14-36) U/L ALT (0-35) U/L Alkaline Phosphatase (38-126) U/L Serum Total Protein (6.3-8.2) g/dL Albumin (3.5-5.0) g/dL Urine Color (YELLOW) Urine Appearance (CLEAR) Urine pH (5-6) Ur Specific Worth (1.005-1.025) Urine Protein (Negative) Urine Ketones (NEGATIVE) Urine Blood (0-5) Yossi/ul Urine Nitrite (NEGATIVE) Urine Bilirubin (NEGATIVE) Urine Urobilinogen (0-1) mg/dL Ur Leukocyte Esterase (NEGATIVE) Urine WBC (Auto) (0-5) /HPF Urine RBC (Auto) (0-2) /HPF U Epithel Cells (Auto) (FEW) /HPF Urine Bacteria (Auto) (NEGATIVE) /HPF Urine Mucus (Auto) (NEGATIVE) /HPF Urine Culture Reflexed (NO) Urine Glucose (NEGATIVE) mg/dL Urine HCG, Qual (Negative) - Progress Progress: unchanged Air Movement: good Progress Note: 11/29/19 21:59 49 years old is evaluated for flulike symptoms. She has a normal white count, grossly unremarkable chemistries. Lungs bilateral clear to auscultation. Not in any distress, maintaining oxygen saturation around 97% on room air. No toxic appearance. I believe patient has viral syndrome/viral URI with cough, will start her on prednisone and albuterol and recommended taking Tylenol ibuprofen as needed and outpatient follow-up. Discussed signs symptoms of worsening needing return to ER which she seems understanding. Stable for discharge. COVID-19 testing is ordered and patient will follow outpatient with results. 11/29/19 22:01 Blood Culture(s) Obtained: No Antibiotics given: No Counseled pt/family regarding: lab results, diagnosis, need for follow-up, rad results, smoking cessation - Departure Departure Disposition: Home Clinical Impression: Viral syndrome Condition: Stable Critical Care Time: No Referrals: TRAVON DIA MD [Primary Care Provider] - Follow Up with PCP/3 days Instructions: Cough, Adult (DC), Viral Syndrome (DC) Additional Instructions: Drink plenty of fluids. Take Tylenol as needed. Follow-up with your primary care physician for reevaluation. Return to ER for any worsening. Follow contact/droplet precautions until your COVID-19 testing is back. Prescriptions: Prednisone 20 mg [Deltasone 20 mg] 60 mg PO DAILY 5 Days #15 tablet Albuterol 8 gm Mdi Hfa [Ventolin Hfa MDI] 8 gm IH Q4H #1 [email or web address]
[2019-11-29] MEDS ORDERED: TORAdol 30 mg Injection ONE (20:37)
[2019-11-29 20:41] VITALS: O2SAT 99
[2019-11-29 20:44] LABS: ALBUMIN 4.9 g/dL (3.5-5.0); ALKALINE PHOSPHATASE 68 U/L (38-126); BLOOD UREA NITROGEN 13 mg/dL (7-17); CHLORIDE 107 mmol/L (98-107); Calcium 9.8 mg/dL (8.4-10.2); Carbon Dioxide 23 mmol/L (22-30); Creatinine 1 0.73 mg/dL (0.52-1.04); EST GLOMERULAR FILTRATION RATE > 60.0 ML/MIN; Glucose 129 mg/dL (74-106); Potassium 3.9 mmol/L (3.5-5.1); SGOT/AST 42 U/L (14-36); SGPT/ALT 52 U/L (0-35); SODIUM 140 mmol/L (137-145); Total Protein 8.4 g/dL (6.3-8.2)
[2019-11-29 21:42] LABS: Appearance SLIGHTLY CLOUDY (CLEAR); Bilirubin NEGATIVE (NEGATIVE); Blood NEGATIVE Ery/ul (0-5); Epithelial Cells RARE /HPF (FEW); Glucose NEGATIVE (NEGATIVE); Ketones NEGATIVE (NEGATIVE); Leukocyte Esterase SMALL (NEGATIVE); Mucus SLIGHT /HPF (NEGATIVE); Nitrite NEGATIVE (NEGATIVE); Protein,Urine Dip NEGATIVE (Negative); Urobilinogen NEGATIVE mg/dL (0-1)
[2019-11-29 21:50] LABS: Bacteria NONE SEEN /HPF (NEGATIVE); RBC NONE SEEN /HPF (0-2)
[2019-11-29] MEDS ORDERED: DELTASONE 20 MG PO ONE (21:58)
[2019-11-29] MEDS ORDERED: DELTASONE 20 MG ONE (22:02)
[2019-11-29 22:08] VITALS: BP 181/97; PULSE 72
--- NOTE | 2019-12-02 08:34 | XRAY ---
Indication: Cough. Upper respiratory tract infection. Pneumonia. Comparison: September 17, 2017. Portable chest again demonstrates normal heart, lungs, and bony thorax.
== END 2019-11-29 22:24 | disposition home or self-care (01) ==
LOC: ED 19:18
DX: B34.9 Viral infection, unspecified (principal)
CPT/HCPCS: 36000; 36415; 71045; 80053; 81001; 84703; 85025; 99284; U0003; J1885; A9270-GY

== ENCOUNTER 2020-04-12 08:44 | Emergency (ER) | payer BC ==
[2020-04-12] MEDS ORDERED: Sodium Chloride 0.9% 1000 ML 1,000 ML ONE (09:12)
[2020-04-12] MEDS ORDERED: Sodium Chloride 0.9% 1000 ML 1,000 ML IV SCH (09:15)
--- NOTE | 2020-04-12 09:16 | ERPHSYRPT ---
- History of Present Illness Time Seen by Provider: 04/12/20 09:00 Source: patient Exam Limitations: no limitations Patient Subjective Stated Complaint: palpitations Triage Nursing Assessment: pt to ED c/o chest palpitations osnet last night. pt states she frequently has eposides of palpitations that come and go on their own. reports palp started last night and have not gone away this morning. does not see p d driver. denies chest pain. denies dizzines, [place]. skin PWD. ambulatory without assistance. A&Ox4. lungs and heart sounds clear. Physician History: Patient is a 50-year-old female smoker presents to our emergency department with complaints of heart palpitations. Patient states that she normally experiences heart palpitations. However she is here because she has been experiencing heart palpitations continuously since last night. Patient states this is unusual. Her palpitations are intermittent. No associated chest pain. No nausea vomiting or diaphoresis. No trauma. No fevers. Symptoms are mild to moderate in intensity. No specific worsening or improving factors. Patient adds that she has been under extreme amount of stress due to home stressors regarding her son and relationship. Patient safety is not at risk. Patient voices no other complaints concerns at this time. Timing/Duration: yesterday Severity: mild Modifying Factors: Improves With: nothing Associated Symptoms: denies symptoms Allergies/Adverse Reactions: egg Allergy (Severe, Verified 04/12/20 08:58) Tightness of Throat citalopram [From Celexa] Allergy (Mild, Verified 04/12/20 08:58) Hives Sulfa (Sulfonamide Antibiotics) [Sulfa(Sulfonamide Antibiotics)] Allergy (Mild, Verified 04/12/20 08:58) Rash Home Medications: ALPRAZolam [Xanax 0.5 mg] 0.5 mg PO TID PRN 05/03/13 [History] Levothyroxine Sodium 100 Mcg [Synthroid 100 Mcg] 75 mcg PO DAILY 03/24/17 [History] Atorvastatin Calcium 20 mg PO HS 09/13/17 [History] Metoprolol Succinate [Toprol Xl] 50 mg PO DAILY 09/13/17 [History] Fenofibrate,Micronized [Fenofibrate] 200 mg PO HS 04/20/19 [History] Omeprazole 40 mg PO DAILY PRN PRN 04/20/19 [History] Hx Tetanus, Diphtheria Vaccination/Date Given: Yes Hx Influenza Vaccination/Date Given: No (irritation to eggs) Hx Pneumococcal Vaccination/Date Given: No Immunizations Up to Date: Yes Travel Risk - International Travel Have you traveled outside of the country in past 3 weeks: No - Coronavirus Screening Are you exhibiting any of the following symptoms?: No Close contact with a COVID-19 positive Pt in past 14-21 Days: No - Review of Systems Constitutional: No Symptoms, No Fever, No Chills Eyes: No Symptoms Ears, Nose, & Throat: No Symptoms Respiratory: No Symptoms, No Cough, No Dyspnea Cardiac: No Symptoms, No Chest Pain, No Edema, No Syncope Abdominal/Gastrointestinal: No Symptoms, No Abdominal Pain, No Nausea, No Vomiting, No Diarrhea Genitourinary Symptoms: No Symptoms, No Dysuria Musculoskeletal: No Symptoms, No Back Pain, No Neck Pain Skin: No Symptoms, No Rash Neurological: No Symptoms, No Dizziness, No Focal Weakness, No Sensory Changes Psychological: No Symptoms Endocrine: No Symptoms Hematologic/Lymphatic: No Symptoms Immunological/Allergic: No Symptoms All Other Systems: Reviewed and Negative - Past Medical History Pertinent Past Medical History: Yes Neurological History: Migraines ENT History: No Pertinent History Cardiac History: High Cholesterol, Hypertension Respiratory History: Other Endocrine Medical History: No Pertinent History Musculoskeletal History: No Pertinent History GI Medical History: GERD, Gallbladder Disease History: No Pertinent History Psycho-Social History: Anxiety, Depression Female Reproductive Disorders: No Pertinent History Other Medical History: SOB with anxiety. Hx palpatations - Past Surgical History Past Surgical History: Yes Neuro Surgical History: No Pertinent History Cardiac: No Pertinent History Respiratory: No Pertinent History Gastrointestinal: Cholecystectomy Genitourinary: No Pertinent History Musculoskeletal: No Pertinent History Female Surgical History: Tubal Ligation - Social History Smoking Status: Current every day smoker How long have you smoked: 30 years Exposure to second hand smoke: Yes Alcohol Use: Socially Drug Use: none Patient Lives Alone: No Significant Family History: no pertinent family hx - Female History Hx Now: No (menopause) - Nursing Vital Signs Nursing Vital Signs: Initial Vital Signs Temperature 97.8 F 04/12/20 08:50 Pulse Rate 90 04/12/20 08:50 Respiratory Rate 18 04/12/20 08:50 Blood Pressure 163/94 04/12/20 08:50 O2 Sat by Pulse Oximetry 99 04/12/20 08:50 Pain Scale Pain Intensity 0 - Physical Exam General Appearance: no apparent distress, alert Eye Exam: PERRL/EOMI, eyes nml inspection Ears, Nose, Throat Exam: normal ENT inspection, TMs normal, pharynx normal, moist mucous membranes Neck Exam: normal inspection, non-tender, supple, full range of motion Respiratory Exam: normal breath sounds, lungs clear, No respiratory distress Cardiovascular Exam: regular rate/rhythm, normal heart sounds, normal peripheral pulses Gastrointestinal/Abdomen Exam: soft, normal bowel sounds, No tenderness, No mass Back Exam: normal inspection, normal range of motion, No CVA tenderness, No ravinder tebral tenderness Extremity Exam: normal inspection, normal range of motion, pelvis stable Neurologic Exam: alert, oriented x 3, cooperative, normal mood/affect, nml cerebellar function, nml station & gait, sensation nml, No motor deficits Skin Exam: normal color, warm, dry, No rash Lymphatic Exam: No adenopathy SpO2 Interpretation: normal SpO2: 99 O2 Delivery: Room Air - Course Nursing assessment & vital signs reviewed: Yes EKG Interpreted by Me: RATE (81), Sinus Rhythm, NORMAL AXIS, NORMAL INTERVALS - Radiology Exams Chest X-ray Interpretation: Teleradiologist Report (Chest continues to demonstrate normal heart lungs and bony thorax.) Ordered Tests: Active Orders 24 hr Category Date Time Status Cephalometric Analyst STAT Care 04/12/20 09:08 Active EKG-ER Only STAT Care 04/12/20 09:07 Active IV Insertion STAT Care 04/12/20 09:07 Active Pulse Oximetry (ED) STAT Care 04/12/20 09:07 Active CHEST 1 VIEW (PORTABLE) Stat Exams 04/12/20 09:08 Completed CBC W DIFF Stat Lab 04/12/20 09:20 Completed CMP Stat Lab 04/12/20 09:20 Completed MAGNESIUM Stat Lab 04/12/20 09:20 Completed NT PRO BNP Stat Lab 04/12/20 09:20 Completed TROPONIN Q3H Lab 04/12/20 09:20 Completed TROPONIN Q3H Lab 04/12/20 11:19 Completed TROPONIN Q3H Lab 04/12/20 15:15 Ordered TROPONIN Q3H Lab 04/12/20 18:15 Ordered TROPONIN Q3H Lab 04/12/20 21:15 Ordered TSH [TSH, 3RD Generation] Stat Lab 04/12/20 09:20 Completed UA W/RFX UR CULTURE Stat Lab 04/12/20 10:18 Completed Urine Triage Profile Stat Lab 04/12/20 10:18 Completed Medication Summary Generic Name Dose Route Start Last Admin Trade Name Vic PRN Reason Stop Dose Admin Sodium Chloride 1,000 mls @ 100 mls/hr 04/12/20 09:15 04/12/20 09:16 Sodium Chloride 0.9% 1000 Ml IV 05/12/20 09:14 100 mls/hr .Q10H KWAN Administration Lab/Rad Data: Laboratory Result Diagrams 04/12/20 09:20 04/12/20 09:20 Laboratory Results 04/12/20 04/12/20 04/12/20 Range/Units 11:19 10:18 10:18 WBC (4.0-10.5) K/mm3 RBC (4.1-5.4) M/mm3 Hgb (12.0-16.0) gm/dl Hct (35-47) % MCV (78-100) fl MCH (26-32) pg MCHC (32-36) g/dl RDW (11.5-14.0) % Plt Count (150-450) K/mm3 MPV (7.5-11.0) fl Gran % (36.0-66.0) % Eos # (Auto) (0-0.5) Absolute Lymphs (auto) (1.0-4.6) Absolute Monos (auto) (0.0-1.3) Lymphocytes % (24.0-44.0) % Monocytes % (0.0-12.0) % Eosinophils % (0.00-5.0) % Basophils % (0.0-0.4) % Absolute Granulocytes (1.4-6.9) Basophils # (0-0.4) Sodium (137-145) mmol/L Potassium (3.5-5.1) mmol/L Chloride (98-107) mmol/L Carbon Dioxide (22-30) mmol/L Anion Gap (5-15) MEQ/L BUN (7-17) mg/dL Creatinine (0.52-1.04) mg/dL Estimated GFR ML/MIN Glucose (74-106) mg/dL Calcium (8.4-10.2) mg/dL Magnesium (1.6-2.3) mg/dL Total Bilirubin (0.2-1.3) mg/dL AST (14-36) U/L ALT (0-35) U/L Alkaline Phosphatase (38-126) U/L Troponin I < 0.012 (0.000-0.034) ng/mL NT-Pro-B Natriuret Pep (0-900) pg/mL Serum Total Protein (6.3-8.2) g/dL Albumin (3.5-5.0) g/dL TSH 3rd Generation (0.47-4.68) mIU/L Urine Color YELLOW (YELLOW) Urine Appearance SLIGHTLY CLOUDY (CLEAR) Urine pH 5.0 (5-6) Ur Specific [place] 1.023 (1.005-1.025) Urine Protein NEGATIVE (Negative) Urine Ketones NEGATIVE (NEGATIVE) Urine Blood NEGATIVE (0-5) Yossi/ul Urine Nitrite NEGATIVE (NEGATIVE) Urine Bilirubin NEGATIVE (NEGATIVE) Urine Urobilinogen NEGATIVE (0-1) mg/dL Ur Leukocyte Esterase NEGATIVE (NEGATIVE) Urine WBC (Auto) 0-2 (0-5) /HPF Urine RBC (Auto) NONE (0-2) /HPF U Epithel Cells (Auto) RARE (FEW) /HPF Urine Bacteria (Auto) FEW (NEGATIVE) /HPF Urine Mucus (Auto) SLIGHT (NEGATIVE) /HPF Urine Culture Reflexed NO (NO) Urine Glucose NEGATIVE (NEGATIVE) mg/dL Urine Opiates Level NEGATIVE (NEGATIVE) Ur Methadone NEGATIVE (NEGATIVE) Urine Barbiturates NEGATIVE (NEGATIVE) Ur Phencyclidine (PCP) NEGATIVE (NEGATIVE) Urine Amphetamine NEGATIVE (NEGATIVE) U Benzodiazepine Level NEGATIVE (NEGATIVE) Urine Cocaine NEGATIVE (NEGATIVE) Urine Marijuana (THC) NEGATIVE (NEGATIVE) 04/12/20 04/12/20 04/12/20 Range/Units 09:20 09:20 09:20 WBC (4.0-10.5) K/mm3 RBC (4.1-5.4) M/mm3 Hgb (12.0-16.0) gm/dl Hct (35-47) % MCV (78-100) fl MCH (26-32) pg MCHC (32-36) g/dl RDW (11.5-14.0) % Plt Count (150-450) K/mm3 MPV (7.5-11.0) fl Gran % (36.0-66.0) % Eos # (Auto) (0-0.5) Absolute Lymphs (auto) (1.0-4.6) Absolute Monos (auto) (0.0-1.3) Lymphocytes % (24.0-44.0) % Monocytes % (0.0-12.0) % Eosinophils % (0.00-5.0) % Basophils % (0.0-0.4) % Absolute Granulocytes (1.4-6.9) Basophils # (0-0.4) Sodium 139 (137-145) mmol/L Potassium 4.6 (3.5-5.1) mmol/L Chloride 104 (98-107) mmol/L Carbon Dioxide 28 (22-30) mmol/L Anion Gap 11.7 (5-15) MEQ/L BUN 14 (7-17) mg/dL Creatinine 0.74 (0.52-1.04) mg/dL Estimated GFR > 60.0 ML/MIN Glucose 116 H (74-106) mg/dL Calcium 10.3 H (8.4-10.2) mg/dL Magnesium 1.8 (1.6-2.3) mg/dL Total Bilirubin 0.30 (0.2-1.3) mg/dL AST 40 H (14-36) U/L ALT 51 H (0-35) U/L Alkaline Phosphatase 66 (38-126) U/L Troponin I < 0.012 (0.000-0.034) ng/mL NT-Pro-B Natriuret Pep 81.1 (0-900) pg/mL Serum Total Protein 8.3 H (6.3-8.2) g/dL Albumin 4.8 (3.5-5.0) g/dL TSH 3rd Generation 8.050 H (0.47-4.68) mIU/L Urine Color (YELLOW) Urine Appearance (CLEAR) Urine pH (5-6) Ur Specific [place] (1.005-1.025) Urine Protein (Negative) Urine Ketones (NEGATIVE) Urine Blood (0-5) Yossi/ul Urine Nitrite (NEGATIVE) Urine Bilirubin (NEGATIVE) Urine Urobilinogen (0-1) mg/dL Ur Leukocyte Esterase (NEGATIVE) Urine WBC (Auto) (0-5) /HPF Urine RBC (Auto) (0-2) /HPF U Epithel Cells (Auto) (FEW) /HPF Urine Bacteria (Auto) (NEGATIVE) /HPF Urine Mucus (Auto) (NEGATIVE) /HPF Urine Culture Reflexed (NO) Urine Glucose (NEGATIVE) mg/dL Urine Opiates Level (NEGATIVE) Ur Methadone (NEGATIVE) Urine Barbiturates (NEGATIVE) Ur Phencyclidine (PCP) (NEGATIVE) Urine Amphetamine (NEGATIVE) U Benzodiazepine Level (NEGATIVE) Urine Cocaine (NEGATIVE) Urine Marijuana (THC) (NEGATIVE) 04/12/20 Range/Units 09:20 WBC 8.8 (4.0-10.5) K/mm3 RBC 5.34 (4.1-5.4) M/mm3 Hgb 14.6 (12.0-16.0) gm/dl Hct 45.5 (35-47) % MCV 85.2 (78-100) fl MCH 27.3 (26-32) pg MCHC 32.1 (32-36) g/dl RDW 14.2 H (11.5-14.0) % Plt Count 316 (150-450) K/mm3 MPV 11.3 H (7.5-11.0) fl Gran % 64.9 (36.0-66.0) % Eos # (Auto) 0.21 (0-0.5) Absolute Lymphs (auto) 2.21 (1.0-4.6) Absolute Monos (auto) 0.61 (0.0-1.3) Lymphocytes % 25.2 (24.0-44.0) % Monocytes % 7.0 (0.0-12.0) % Eosinophils % 2.4 (0.00-5.0) % Basophils % 0.5 (0.0-0.4) % Absolute Granulocytes 5.70 (1.4-6.9) Basophils # 0.04 (0-0.4) Sodium (137-145) mmol/L Potassium (3.5-5.1) mmol/L Chloride (98-107) mmol/L Carbon Dioxide (22-30) mmol/L Anion Gap (5-15) MEQ/L BUN (7-17) mg/dL Creatinine (0.52-1.04) mg/dL Estimated GFR ML/MIN Glucose (74-106) mg/dL Calcium (8.4-10.2) mg/dL Magnesium (1.6-2.3) mg/dL Total Bilirubin (0.2-1.3) mg/dL AST (14-36) U/L ALT (0-35) U/L Alkaline Phosphatase (38-126) U/L Troponin I (0.000-0.034) ng/mL NT-Pro-B Natriuret Pep (0-900) pg/mL Serum Total Protein (6.3-8.2) g/dL Albumin (3.5-5.0) g/dL TSH 3rd Generation (0.47-4.68) mIU/L Urine Color (YELLOW) Urine Appearance (CLEAR) Urine pH (5-6) Ur Specific [place] (1.005-1.025) Urine Protein (Negative) Urine Ketones (NEGATIVE) Urine Blood (0-5) Yossi/ul Urine Nitrite (NEGATIVE) Urine Bilirubin (NEGATIVE) Urine Urobilinogen (0-1) mg/dL Ur Leukocyte Esterase (NEGATIVE) Urine WBC (Auto) (0-5) /HPF Urine RBC (Auto) (0-2) /HPF U Epithel Cells (Auto) (FEW) /HPF Urine Bacteria (Auto) (NEGATIVE) /HPF Urine Mucus (Auto) (NEGATIVE) /HPF Urine Culture Reflexed (NO) Urine Glucose (NEGATIVE) mg/dL Urine Opiates Level (NEGATIVE) Ur Methadone (NEGATIVE) Urine Barbiturates (NEGATIVE) Ur Phencyclidine (PCP) (NEGATIVE) Urine Amphetamine (NEGATIVE) U Benzodiazepine Level (NEGATIVE) Urine Cocaine (NEGATIVE) Urine Marijuana (THC) (NEGATIVE) - Progress Progress: improved Progress Note: 04/12/20 11:10 TSH is 8.050. Patient currently on 75 mcg levothyroxine daily. I spoke to Dr. Dia regarding this TSH finding. We will increase patient's daily dose of levothyroxine from 75 mcg daily to 100 mcg daily. A prescription for 100 mcg of levothyroxine was forwarded the patient's pharmacy. We discontinued the 75 mcg daily dose. 04/12/20 12:06 Patient reassessed. She is asymptomatic. No heart palpitations in our ED. Troponin negative x2. Will discharge home. Patient agrees to follow-up with her primary care doctor within 48 hours for reevaluation. Counseled pt/family regarding: lab results, diagnosis, need for follow-up, rad results - Departure Departure Disposition: Home Clinical Impression: PVC (premature ventricular contraction), Heart palpitations, Hypothyroidism Condition: Stable Critical Care Time: No Referrals: TRAVON DIA MD [Primary Care Provider] - Instructions: Palpitations Prescriptions: Levothyroxine Sodium 100 Mcg [Synthroid 100 Mcg] 100 mcg PO DAILY 30 Days #30 tablet
[2020-04-12 09:24] LABS: BASOPHIL % 0.5 % (0.0-0.4); Basophil (Absolute #) 0.04 (0-0.4); Eosinophil % 2.4 % (0.00-5.0); Eosinophil (Absolute #) 0.21 (0-0.5); Hematocrit 45.5 % (35-47); Hemoglobin 14.6 gm/dl (12.0-16.0); Lymphocyte (Absolute #) 2.21 (1.0-4.6); Lymphocytes % 25.2 % (24.0-44.0); Mean Cell Volume 85.2 fl (78-100); Mean Corpuscular Hemoglobin 27.3 pg (26-32); Mean Corpuscular Hgb Concent. 32.1 g/dl (32-36); Mean Platelet Volume 11.3 fl (7.5-11.0); Monocyte (Absolute #) 0.61 (0.0-1.3); Neutrophil % 64.9 % (36.0-66.0); Platelet Count 316 K/mm3 (150-450); Red Blood Count 5.34 M/mm3 (4.1-5.4); Red Cell Distribution Width 14.2 % (11.5-14.0); White Blood Count 8.8 K/mm3 (4.0-10.5)
--- NOTE | 2020-04-12 09:39 | XRAY ---
Indication: Palpitations. Comparison: November 29, 2019. Portable chest continues to demonstrate normal heart, lungs, and bony thorax.
[2020-04-12 09:46] LABS: ALBUMIN 4.8 g/dL (3.5-5.0); ALKALINE PHOSPHATASE 66 U/L (38-126); ANION GAP 11.7 MEQ/L (5-15); BLOOD UREA NITROGEN 14 mg/dL (7-17); CHLORIDE 104 mmol/L (98-107); Calcium 10.3 mg/dL (8.4-10.2); Carbon Dioxide 28 mmol/L (22-30); Creatinine 1 0.74 mg/dL (0.52-1.04); EST GLOMERULAR FILTRATION RATE > 60.0 ML/MIN; Glucose 116 mg/dL (74-106); MAGNESIUM 1.8 mg/dL (1.6-2.3); NT PRO BNP 81.1 pg/mL (0-900); Potassium 4.6 mmol/L (3.5-5.1); SGOT/AST 40 U/L (14-36); SGPT/ALT 51 U/L (0-35); SODIUM 139 mmol/L (137-145); Total Protein 8.3 g/dL (6.3-8.2)
[2020-04-12 11:27] LABS: Appearance SLIGHTLY CLOUDY (CLEAR); Bilirubin NEGATIVE (NEGATIVE); Blood NEGATIVE Ery/ul (0-5); Epithelial Cells RARE /HPF (FEW); Glucose NEGATIVE (NEGATIVE); Ketones NEGATIVE (NEGATIVE); Leukocyte Esterase NEGATIVE (NEGATIVE); Mucus SLIGHT /HPF (NEGATIVE); Nitrite NEGATIVE (NEGATIVE); Protein,Urine Dip NEGATIVE (Negative); Specific Gravity 1.023 (1.005-1.025); Urobilinogen NEGATIVE mg/dL (0-1); WBC 0-2 /HPF (0-5)
[2020-04-12 11:33] LABS: Bacteria FEW /HPF (NEGATIVE)
[2020-04-12 11:43] LABS: Amphetamine,Urine NEGATIVE (NEGATIVE); Barbiturate,Urine NEGATIVE (NEGATIVE); Benzodiazepine,Urine NEGATIVE (NEGATIVE); Cocaine,Urine NEGATIVE (NEGATIVE); Methadone,Urine NEGATIVE (NEGATIVE); Opiate,Urine NEGATIVE (NEGATIVE); PCP,Urine NEGATIVE (NEGATIVE); THC,Urine NEGATIVE (NEGATIVE)
[2020-04-12 11:50] VITALS: BP 122/97
[2020-04-12 12:05] VITALS: PULSE 77
[2020-04-12 12:08] VITALS: O2SAT 99
== END 2020-04-12 12:40 | disposition home or self-care (01) ==
LOC: ED 08:44
DX: I49.3 Ventricular premature depolarization (principal); R00.2 Palpitations; E03.9 Hypothyroidism, unspecified; Z79.899 Other long term (current) drug therapy
CPT/HCPCS: 36000; 36415; 71045; 80053; 80307; 81001; 83735; 83880; 84443; 84484; 85025; 93005; 93041; 94760; 99284

== ENCOUNTER 2020-11-16 06:25 | Day surgery (SDC) | payer BC ==
[2020-11-16] MEDS ORDERED: ASTRINGYN 8 GM TP ONE (06:37)
[2020-11-16] MEDS ORDERED: CEFAZOLIN 2 GM-D5W BAG** 2 GM/50 ML ML IV SCH (07:00)
[2020-11-16] MEDS ORDERED: Lactated Ringers 1,000 ML IV SCH (07:00)
[2020-11-16 07:58] LABS: ANION GAP 15.5 MEQ/L (5-15); BLOOD UREA NITROGEN 18 mg/dL (7-17); CHLORIDE 108 mmol/L (98-107); Calcium 9.7 mg/dL (8.4-10.2); Carbon Dioxide 22 mmol/L (22-30); Creatinine 1 0.75 mg/dL (0.52-1.04); EST GLOMERULAR FILTRATION RATE > 60.0 ML/MIN; Glucose 112 mg/dL (74-106); MAGNESIUM 1.9 mg/dL (1.6-2.3); Potassium 4.3 mmol/L (3.5-5.1); SODIUM 141 mmol/L (137-145)
[2020-11-16] MEDS ORDERED: SUBLIMAZE 100 MCG/2 ML ONE ×2 (08:18→08:29)
[2020-11-16] MEDS ORDERED: Zofran 4 MG/2 ML VIAL ONE (08:18)
[2020-11-16] MEDS ORDERED: Versed 2 MG/2 ML Injection ONE (08:18)
[2020-11-16] MEDS ORDERED: DIPRIVAN 200 MG/20 ML IV ONE (08:18)
[2020-11-16] MEDS ORDERED: Decadron 4 MG INJ ONE (08:18)
[2020-11-16] MEDS ORDERED: XYLOCAINE 1%/Epi 1:100000 MDV 20 ML ONE (08:22)
[2020-11-16] MEDS ORDERED: TORAdol 30 mg Injection ONE (08:32)
[2020-11-16] MEDS ORDERED: Lactated Ringers 1,000 ML IV ONE (09:06)
[2020-11-16 10:20] VITALS: BP 112/67; PULSE 71; O2SAT 95
[2020-11-16] MEDS ORDERED: Sensorcaine 0.25% 10 ML ONE (10:25)
--- NOTE | 2020-11-17 07:48 | OP ---
SURGERY DATE/TIME: 11/16/2020 0817 PREOPERATIVE DIAGNOSIS: Postmenopausal bleeding and severe cervical dysplasia. POSTOPERATIVE DIAGNOSIS: Postmenopausal bleeding and severe cervical dysplasia with endometrial polyps. PROCEDURES: Hysteroscopic MyoSure removal of endometrial polyps, D&C, loop electrosurgical excision procedure. SURGEON: Benton Russell D.O. PROJECT LEADER: Stepan Davis, surgical instrument mechanic. ANESTHESIA: General. ESTIMATED BLOOD LOSS: Minimal. COMPLICATIONS: None. INDICATIONS: The risks, benefits, indications and alternatives of the procedure were reviewed with the patient prior to procedure. The patient understood the risk of infection, bleeding, bowel injury, bladder injury, ureteral injury, uterine perforation, pelvic infection and thromboembolic disorder associated with the surgery however desires to have this surgery as a possible need to alleviate her current medical condition. DESCRIPTION OF PROCEDURE AND FINDINGS: The patient is taken to the operating room, given general sedation, placed in dorsal lithotomy position. Prepped and draped in usual sterile fashion. A weighted speculum is then placed in the patient's vagina and the anterior lip of the cervix is grasped with a single tooth tenaculum. Endocervical dilators advanced to the endocervical canal as a means to dilate the cervix and at this point a 5 mm hysteroscope was then placed into the endocervical canal where visualization revealed multiple polypoid lesions within the uterine cavity. From this point the MyoSure was then obtained and was placed through the channel of the hysteroscope where the MyoSure was turned on removing approximately three polyps that were located all anteriorly. The measurements were approximately 1 x 1 cm in dimension for all three of them. From this point after removing the polyps, the uterine cavity appeared to be within normal limits and the hysteroscope was removed. From this point a curette was then placed into the fundus of the uterus and curettage was performed in all quadrants of the uterus retrieving a mild amount of tissue. From this point a weighted speculum was then removed from the patient's vaginal region and a bivalve coated speculum was then placed into the vaginal area where the cervix was then injected circumferentially with 1% lidocaine with epinephrine. From this point the loop instrument was then used to excise the ectocervical portion and was done so without complication in a right to left motion excising approximately 7 to 8 mm of ecto and endocervical tissue. The procedure was done without complication. An additional small endocervical biopsy was taken and hemostasis was obtained by placing loop enamel shader ball on the surface of the cervix at this point. Hemostasis was obtained from this point. From this point all instruments were removed from the patient's vaginal region. The patient is then taken out of the dorsal lithotomy position, is then taken out of the anesthesia and was then taken to the recovery room in stable condition. All instruments and laps were accounted for x2.
== END 2020-11-16 10:25 | disposition home or self-care (01) ==
LOC: SDC 06:25
PROVIDERS: ATTEND Obstetrics & Gynecology
DX: D06.9 Carcinoma in situ of cervix, unspecified (principal); N95.0 Postmenopausal bleeding; E11.9 Type 2 diabetes mellitus without complications; I10 Essential (primary) hypertension; Z79.899 Other long term (current) drug therapy
CPT/HCPCS: 36415; 57460; 58558; 80048; 82947; 83735; 84703; 88305; 88341; 93005; J0690; J1100; J1885; J2250; J2405; J2704; J3010; A9270-GY

== ENCOUNTER 2021-09-02 20:29 | Emergency (ER) | payer BC ==
[2021-09-02] MEDS ORDERED: TORAdol 30 mg Injection IV ONE (20:55)
[2021-09-02] MEDS ORDERED: Zofran 4 MG/2 ML VIAL IV ONE (20:55)
[2021-09-02] MEDS ORDERED: Sodium Chloride 0.9% 1000 ML 1,000 ML IV STA (20:55)
[2021-09-02] MEDS ORDERED: Zofran 4 MG/2 ML VIAL ONE ×2 (21:11→21:24)
[2021-09-02] MEDS ORDERED: Sodium Chloride 0.9% 1000 ML 1,000 ML ONE (21:11)
[2021-09-02] MEDS ORDERED: TORAdol 30 mg Injection ONE ×2 (21:11→21:24)
--- NOTE | 2021-09-02 21:15 | ERPHSYRPT ---
- History of Present Illness Time Seen by Provider: 09/02/21 20:55 Historian: patient Exam Limitations: no limitations Patient Subjective Stated Complaint: pt states "I was at [facility] for constipation. I did what they told me and still have pain." Triage Nursing Assessment: pt ambulated into the er; pt is axo x4; c/o abd pain; pt states 4/10 pain to lower abd pain; c/o constipation; c/o N; tenderness to doug lower abd; hyperactive bowel sounds in all quads; pt states last bm today with little results; hypertension Physician History: 51-year-old female presented to ER with chief complaint of lower abdominal pain dull aching to sharp pain since yesterday moderate to severe intensity without any significant aggravating or relieving factors. Patient thought she was constipated, was evaluated earlier today at [facility] and was recommended to use laxative which she have done but no relief and pain is getting worse. reports associated nausea without vomiting. No fever or chills reported. Timing/Duration: yesterday, gradual onset, worse Activities at Onset: rest Quality: dullness Abdominal Pain Onset Location: RLQ, LLQ Pain Radiation: no radiation Severity of Pain-Max: moderate Severity of Pain-Current: moderate Modifying Factors: Worsens With: movement, palpation Associated Symptoms: nausea Previous symptoms: no prior history Allergies/Adverse Reactions: egg Allergy (Severe, Verified 09/02/21 20:54) Tightness of Throat citalopram [From Celexa] Allergy (Mild, Verified 09/02/21 20:54) Hives Sulfa (Sulfonamide Antibiotics) [Sulfa(Sulfonamide Antibiotics)] Allergy (Mild, Verified 09/02/21 20:54) Rash Home Medications: ALPRAZolam [Xanax 0.5 mg] 0.5 mg PO TID PRN 05/03/13 [History] Atorvastatin Calcium 20 mg PO HS 09/13/17 [History] Metoprolol Succinate [Toprol Xl] 50 mg PO DAILY 09/13/17 [History] Fenofibrate,Micronized [Fenofibrate] 160 mg PO HS 04/20/19 [History] Omeprazole 40 mg PO DAILY PRN PRN 04/20/19 [History] Dapagliflozin Propanediol [Farxiga] 10 mg PO DAILY 11/09/20 [History] Hx Tetanus, Diphtheria Vaccination/Date Given: No (unknown) Hx Influenza Vaccination/Date Given: No (irritation to eggs) Hx Pneumococcal Vaccination/Date Given: No Travel Risk - International Travel Have you traveled outside of the country in past 3 weeks: No - Coronavirus Screening Are you exhibiting any of the following symptoms?: No Close contact with a COVID-19 positive Pt in past 14-21 Days: No - Vaccine Status Have you recieved a Covid-19 vaccination: No - Review of Systems Constitutional: No Symptoms Eyes: No Symptoms Ears, Nose, & Throat: No Symptoms Respiratory: No Symptoms Cardiac: No Symptoms Abdominal/Gastrointestinal: Abdominal Pain, Nausea, Constipation Genitourinary Symptoms: No Symptoms Musculoskeletal: No Symptoms Skin: No Symptoms Neurological: No Symptoms Psychological: No Symptoms Endocrine: No Symptoms Hematologic/Lymphatic: No Symptoms Immunological/Allergic: No Symptoms - Past Medical History Pertinent Past Medical History: Yes Neurological History: Migraines ENT History: No Pertinent History Cardiac History: Arrhythmia, High Cholesterol, Hypertension Respiratory History: Other Endocrine Medical History: Diabetes Type II Musculoskeletal History: No Pertinent History GI Medical History: GERD, Gallbladder Disease History: No Pertinent History Psycho-Social History: Depression, Anxiety Female Reproductive Disorders: Abnormal Uterine Bleeding, Fibroids, Other Other Medical History: SOB with anxiety,cancerous cells vaginal. Hx palpatations - Past Surgical History Past Surgical History: Yes Neuro Surgical History: No Pertinent History Cardiac: No Pertinent History Respiratory: No Pertinent History Gastrointestinal: Cholecystectomy Genitourinary: No Pertinent History Musculoskeletal: No Pertinent History Female Surgical History: Tubal Ligation Other Surgical History: leep procedure 2020 - Social History Smoking Status: Current every day smoker How long have you smoked: 30 years Exposure to second hand smoke: Yes Alcohol Use: Socially Drug Use: none Patient Lives Alone: No Significant Family History: no pertinent family hx - Nursing Vital Signs Nursing Vital Signs: Initial Vital Signs Temperature 97 F 09/02/21 20:30 Pulse Rate 89 09/02/21 20:30 Respiratory Rate 18 09/02/21 20:30 Blood Pressure 171/97 09/02/21 20:30 O2 Sat by Pulse Oximetry 96 09/02/21 20:30 Pain Scale Pain Intensity 3 - Physical Exam General Appearance: no apparent distress, alert Eye Exam: PERRL/EOMI, eyes nml inspection Ears, Nose, Throat Exam: normal ENT inspection Neck Exam: normal inspection, full range of motion Respiratory Exam: normal breath sounds, lungs clear Cardiovascular Exam: regular rate/rhythm, normal heart sounds Gastrointestinal/Abdomen Exam: soft, tenderness (Lower abdomen bilaterally), No normal bowel sounds (Hypoactive) Back Exam: normal inspection, normal range of motion, No CVA tenderness Extremity Exam: normal inspection, normal range of motion Neurologic Exam: alert, oriented x 3, cooperative Skin Exam: normal color SpO2 Interpretation: normal SpO2: 96 O2 Delivery: Room Air Ordered Tests: Active Orders 24 hr Category Date Time Status IV Insertion STAT Care 09/02/21 20:55 Active NPO (ED) STAT Care 09/02/21 20:55 Active ABDOMEN AND PELVIS W/0 CONTRAS [CT] Stat Exams 09/02/21 20:55 Taken CBC W DIFF Stat Lab 09/02/21 21:26 Completed CMP Stat Lab 09/02/21 21:26 Completed HCG,QUALITATIVE URINE Stat Lab 09/02/21 20:57 Completed LIPASE Stat Lab 09/02/21 21:26 Completed UA W/RFX CULTURE Stat Lab 09/02/21 20:57 Completed Medication Summary Discontinued Medications Generic Name Dose Route Start Last Admin Trade Name Mukulq PRN Reason Stop Dose Admin Sodium Chloride 1,000 mls @ 999 mls/hr 09/02/21 20:55 09/02/21 22:19 Sodium Chloride 0.9% 1000 Ml IV 09/02/21 21:55 Infused .Q1H1M STA Infusion Sodium Chloride Confirm 09/02/21 21:11 Sodium Chloride 0.9% 1000 Ml Administered 09/02/21 21:12 Dose 1,000 mls @ ud .ROUTE .STK-MED ONE Ketorolac Tromethamine 30 mg 09/02/21 20:55 09/02/21 21:12 Ketorolac Tromethamine 30 Mg/Ml Inj IV 09/02/21 20:56 30 mg STAT ONE Administration Ketorolac Tromethamine Confirm 09/02/21 21:11 Ketorolac Tromethamine 30 Mg/Ml Inj Administered 09/02/21 21:12 Dose 30 mg .ROUTE .STK-MED ONE Ketorolac Tromethamine Confirm 09/02/21 21:24 Ketorolac Tromethamine 30 Mg/Ml Inj Administered 09/02/21 21:25 Dose 30 mg .ROUTE .STK-MED ONE Ondansetron HCl 4 mg 09/02/21 20:55 09/02/21 21:12 Ondansetron Hcl 4 Mg/2 Ml Vial IV 09/02/21 20:56 4 mg STAT ONE Administration Ondansetron HCl Confirm 09/02/21 21:11 Ondansetron Hcl 4 Mg/2 Ml Vial Administered 09/02/21 21:12 Dose 4 mg .ROUTE .STK-MED ONE Ondansetron HCl Confirm 09/02/21 21:24 Ondansetron Hcl 4 Mg/2 Ml Vial Administered 09/02/21 21:25 Dose 4 mg .ROUTE .STK-MED ONE Lab/Rad Data: Laboratory Result Diagrams 09/02/21 21:26 09/02/21 21:26 Laboratory Results 09/02/21 09/02/21 09/02/21 Range/Units 21:26 21:26 20:57 WBC 12.1 H (4.0-10.5) x10^3/uL RBC 4.98 (4.1-5.4) x10^6/uL Hgb 13.8 (12.0-16.0) g/dL Hct 43.1 (35-47) % MCV 86.5 (78-100) fL MCH 27.7 (26-32) pg MCHC 32.0 (32-36) g/dL RDW 14.6 H (11.5-14.0) % Plt Count 412 (150-450) x10^3/uL MPV 10.8 (7.5-11.0) fL Gran % 66.3 H (36.0-66.0) % Immature Gran % (Auto) 0.7 H (0.00-0.4) % Nucleat RBC Rel Count 0.0 (0.00-0.1) % Eos # (Auto) 0.37 (0-0.5) x10^3/uL Immature Gran # (Auto) 0.08 H (0.00-0.03) x10^3u/L Absolute Lymphs (auto) 2.75 (1.0-4.6) x10^3/uL Absolute Monos (auto) 0.80 (0.0-1.3) x10^3/uL Absolute Nucleated RBC 0.00 (0.00-0.01) x10^3u/L Lymphocytes % 22.7 L (24.0-44.0) % Monocytes % 6.6 (0.0-12.0) % Eosinophils % 3.1 (0.00-5.0) % Basophils % 0.6 (0.0-0.4) % Absolute Granulocytes 8.03 H (1.4-6.9) x10^3/uL Basophils # 0.07 (0-0.4) x10^3/uL Sodium 141 (137-145) mmol/L Potassium 3.6 (3.5-5.1) mmol/L Chloride 103 (98-107) mmol/L Carbon Dioxide 27 (22-30) mmol/L Anion Gap 14.9 (5-15) MEQ/L BUN 10 (7-17) mg/dL Creatinine 0.77 (0.52-1.04) mg/dL Estimated GFR > 60.0 ML/MIN Glucose 142 H (74-106) mg/dL Calcium 9.4 (8.4-10.2) mg/dL Total Bilirubin 0.40 (0.2-1.3) mg/dL AST 30 (14-36) U/L ALT 28 (0-35) U/L Alkaline Phosphatase 66 (38-126) U/L Serum Total Protein 8.3 H (6.3-8.2) g/dL Albumin 4.8 (3.5-5.0) g/dL Lipase 96 (23-300) U/L Urinalys Dipstick Clnc MAIN LAB Urine Color YELLOW (YELLOW) Urine Appearance CLEAR (CLEAR) Urine pH 6.5 (5-6) Ur Specific [place] >=1.030 (1.005-1.025) POC Urine Protein Conf NEGATIVE (Negative) Urine Ketones NEGATIVE (NEGATIVE) Urine Nitrite NEGATIVE (NEGATIVE) Urine Bilirubin NEGATIVE (NEGATIVE) Urine Urobilinogen 0.2 (0-1) mg/dL Urine Leukocytes NEGATIVE (NEGATIVE) Urine WBC (Auto) 0-2 (0-5) /HPF Urine RBC (Auto) 0-2 (0-2) /HPF U Epithel Cells (Auto) RARE (FEW) /HPF Urine Bacteria (Auto) NONE (NEGATIVE) /HPF Urine RBC NEGATIVE (0-5) Yossi/ul Urine Mucus (Auto) SLIGHT (NEGATIVE) /HPF Ur Culture Indicated? NO Urine Glucose NEGATIVE (NEGATIVE) mg/dL Urine HCG, Qual (Negative) 06/17/22 Range/Units 20:57 WBC (4.0-10.5) x10^3/uL RBC (4.1-5.4) x10^6/uL Hgb (12.0-16.0) g/dL Hct (35-47) % MCV (78-100) fL MCH (26-32) pg MCHC (32-36) g/dL RDW (11.5-14.0) % Plt Count (150-450) x10^3/uL MPV (7.5-11.0) fL Gran % (36.0-66.0) % Immature Gran % (Auto) (0.00-0.4) % Nucleat RBC Rel Count (0.00-0.1) % Eos # (Auto) (0-0.5) x10^3/uL Immature Gran # (Auto) (0.00-0.03) x10^3u/L Absolute Lymphs (auto) (1.0-4.6) x10^3/uL Absolute Monos (auto) (0.0-1.3) x10^3/uL Absolute Nucleated RBC (0.00-0.01) x10^3u/L Lymphocytes % (24.0-44.0) % Monocytes % (0.0-12.0) % Eosinophils % (0.00-5.0) % Basophils % (0.0-0.4) % Absolute Granulocytes (1.4-6.9) x10^3/uL Basophils # (0-0.4) x10^3/uL Sodium (137-145) mmol/L Potassium (3.5-5.1) mmol/L Chloride (98-107) mmol/L Carbon Dioxide (22-30) mmol/L Anion Gap (5-15) MEQ/L BUN (7-17) mg/dL Creatinine (0.52-1.04) mg/dL Estimated GFR ML/MIN Glucose (74-106) mg/dL Calcium (8.4-10.2) mg/dL Total Bilirubin (0.2-1.3) mg/dL AST (14-36) U/L ALT (0-35) U/L Alkaline Phosphatase (38-126) U/L Serum Total Protein (6.3-8.2) g/dL Albumin (3.5-5.0) g/dL Lipase (23-300) U/L Urinalys Dipstick Clnc Urine Color (YELLOW) Urine Appearance (CLEAR) Urine pH (5-6) Ur Specific [place] (1.005-1.025) POC Urine Protein Conf (Negative) Urine Ketones (NEGATIVE) Urine Nitrite (NEGATIVE) Urine Bilirubin (NEGATIVE) Urine Urobilinogen (0-1) mg/dL Urine Leukocytes (NEGATIVE) Urine WBC (Auto) (0-5) /HPF Urine RBC (Auto) (0-2) /HPF U Epithel Cells (Auto) (FEW) /HPF Urine Bacteria (Auto) (NEGATIVE) /HPF Urine RBC (0-5) Yossi/ul Urine Mucus (Auto) (NEGATIVE) /HPF Ur Culture Indicated? Urine Glucose (NEGATIVE) mg/dL Urine HCG, Qual NEGATIVE (Negative) - Progress Progress: improved, pain not gone completely, re-examined Progress Note: 09/02/21 22:33 41-year-old is evaluated for lower abdominal/pelvic pain. She is given symptomatic treatment for pain, on reevaluation feeling better. Pain is not completely resolved. Has normal white count, grossly unremarkable chemistries. No UTI. Obtained CT which showed new heterogenous area of mixed density in lower uterine segment and cervical region. Patient does have fibroid on previous CT/MRI which is improved in size. She needs further evaluation with MRI/ultrasound. Recommended outpatient primary care/[facility] follow-up for further evaluation. Discussed signs symptoms of worsening needing return to ER which she seems understanding. Counseled pt/family regarding: lab results, diagnosis, need for follow-up, rad results - Departure Departure Disposition: Home Clinical Impression: Pelvic mass in female, Lower abdominal pain Condition: Stable Critical Care Time: No Referrals: TRAVON DIA MD [Primary Care Provider] - Follow Up with PCP/3 days KIM MERA DO [ACTIVE STAFF] - Follow up/PCP as directed (In 3 days for reevaluation) Instructions: Severe Abdominal Pain, Adult (DC) Additional Instructions: Take pain medications as needed. Follow-up with primary care and [facility] for reevaluation. Return to ER for worsening pain. Prescriptions: Tramadol HCl 50 mg [Ultram 50 mg] 50 mg PO Q6HPRN PRN 3 Days #12 tablet PRN Reason: Pain
[2021-09-02 21:29] LABS: Absolute Neutrophil Ct (ANC) 8.03 x10^3/uL (1.4-6.9); Basophil (Absolute #) 0.07 x10^3/uL (0-0.4); Eosinophil % 3.1 % (0.00-5.0); Eosinophil (Absolute #) 0.37 x10^3/uL (0-0.5); Hematocrit 43.1 % (35-47); Hemoglobin 13.8 g/dL (12.0-16.0); Lymphocyte (Absolute #) 2.75 x10^3/uL (1.0-4.6); Lymphocytes % 22.7 % (24.0-44.0); Mean Cell Volume 86.5 fL (78-100); Mean Corpuscular Hemoglobin 27.7 pg (26-32); Mean Platelet Volume 10.8 fL (7.5-11.0); Monocytes % 6.6 % (0.0-12.0); Neutrophil % 66.3 % (36.0-66.0); Platelet Count 412 x10^3/uL (150-450); Red Blood Count 4.98 x10^6/uL (4.1-5.4); Red Cell Distribution Width 14.6 % (11.5-14.0); White Blood Count 12.1 x10^3/uL (4.0-10.5)
[2021-09-02 21:37] LABS: ALBUMIN 4.8 g/dL (3.5-5.0); ALKALINE PHOSPHATASE 66 U/L (38-126); ANION GAP 14.9 MEQ/L (5-15); BLOOD UREA NITROGEN 10 mg/dL (7-17); CHLORIDE 103 mmol/L (98-107); Calcium 9.4 mg/dL (8.4-10.2); Carbon Dioxide 27 mmol/L (22-30); Creatinine 1 0.77 mg/dL (0.52-1.04); EST GLOMERULAR FILTRATION RATE > 60.0 ML/MIN; Glucose 142 mg/dL (74-106); LIPASE 96 U/L (23-300); Potassium 3.6 mmol/L (3.5-5.1); SGOT/AST 30 U/L (14-36); SGPT/ALT 28 U/L (0-35); SODIUM 141 mmol/L (137-145); Total Protein 8.3 g/dL (6.3-8.2)
[2021-09-02 21:39] LABS: Appearance CLEAR (CLEAR)
[2021-09-02 21:40] LABS: Bilirubin NEGATIVE (NEGATIVE); Dipstick done @ ? MAIN LAB; Glucose NEGATIVE (NEGATIVE); Ketones NEGATIVE (NEGATIVE); Nitrite NEGATIVE (NEGATIVE); Ph 6.5 (5-6); Protein,Urine Dip NEGATIVE (Negative); RBC NEGATIVE Ery/ul (0-5); Specific Gravity >=1.030 (1.005-1.025); Urobilinogen 0.2 mg/dL (0-1)
[2021-09-02 21:43] LABS: Epithelial Cells RARE /HPF (FEW); Mucus SLIGHT /HPF (NEGATIVE); RBC 0-2 /HPF (0-2); WBC 0-2 /HPF (0-5)
[2021-09-02 21:45] LABS: Urine Cultured Indicated? NO
[2021-09-02 22:11] VITALS: BP 137/81; PULSE 74
[2021-09-02 22:29] VITALS: O2SAT 96
--- NOTE | 2021-09-03 07:36 | XRAY ---
Indication: Lower abdomen pain. Multiple contiguous axial images obtained through the abdomen and pelvis without contrast. Comparison: May 19, 2019 Lung bases demonstrates minimal bibasilar subsegmental atelectasis/scarring. No infiltrate or effusion. Heart not enlarged. Noncontrasted stomach and bowel loops nonobstructed with normal appendix. Again cholecystectomy and fatty liver. No free fluid/air. Uterus is prominent with MRI proven fibroids. Remaining liver, pancreas, spleen, adrenal glands, kidneys, ureters, bladder, and aorta are unremarkable for noncontrast exam. Osseous structures intact. No ventral or inguinal hernias. Impression: 1. MRI proven uterine fibroids. 2. Again fatty liver. 3. Remaining CT abdomen/pelvis without contrast exam is negative. Common: Preliminary interpretation may by [facility]. No critical discrepancy.
== END 2021-09-02 22:38 | disposition home or self-care (01) ==
LOC: ED 20:29
DX: R19.00 Intra-abdominal and pelvic swelling, mass and lump, unspecified site (principal); R10.31 Right lower quadrant pain; R10.32 Left lower quadrant pain; R11.0 Nausea; E78.5 Hyperlipidemia, unspecified; I10 Essential (primary) hypertension; E11.9 Type 2 diabetes mellitus without complications; Z79.84 Long term (current) use of oral hypoglycemic drugs; Z79.899 Other long term (current) drug therapy; Z72.0 Tobacco use; Z28.310 Unvaccinated for COVID-19; Z79.891 Long term (current) use of opiate analgesic
CPT/HCPCS: 36000; 36415; 74176; 80053; 81015; 81025; 83690; 85025; 96360; 96374; 96375; 99285; J1885; J2405

== ENCOUNTER 2021-09-20 11:51 | Inpatient (IN) | payer BC ==
[2021-10-18] MEDS ORDERED: Lactated Ringers 1,000 ML IV ONE (08:25)
[2021-10-18] MEDS ORDERED: MEFOXIN 2 GM PREMIX** 2 GM/50 ML ML IV ONE (08:25)
[2021-10-18] MEDS: Lactated Ringers 1,000 ML IV SCH ×2 (08:34→22:04)
[2021-10-18] MEDS ORDERED: MEFOXIN 2 GM PREMIX** 2 GM/50 ML ML IV SCH (09:00)
[2021-10-18 09:08] LABS: Hematocrit 45.3 % (35-47); Mean Cell Volume 88.6 fL (78-100); Mean Corpuscular Hemoglobin 27.4 pg (26-32); Mean Corpuscular Hgb Concent. 30.9 g/dL (32-36); Mean Platelet Volume 11.5 fL (7.5-11.0); Platelet Count 278 x10^3/uL (150-450); Red Blood Count 5.11 x10^6/uL (4.1-5.4); Red Cell Distribution Width 13.8 % (11.5-14.0); White Blood Count 9.1 x10^3/uL (4.0-10.5)
[2021-10-18 09:38] LABS: ABO TYPING B; Antibody Screen NEGATIVE (NEGATIVE); RH TYPING NEGATIVE
[2021-10-18 09:45] LABS: ALBUMIN 4.7 g/dL (3.5-5.0); ALKALINE PHOSPHATASE 61 U/L (38-126); ANION GAP 16.9 MEQ/L (5-15); BLOOD UREA NITROGEN 16 mg/dL (7-17); CHLORIDE 106 mmol/L (98-107); Calcium 9.8 mg/dL (8.4-10.2); Carbon Dioxide 22 mmol/L (22-30); Creatinine 1 0.74 mg/dL (0.52-1.04); EST GLOMERULAR FILTRATION RATE > 60.0 ML/MIN; Glucose 103 mg/dL (74-106); Potassium 4.1 mmol/L (3.5-5.1); SGOT/AST 33 U/L (14-36); SGPT/ALT 38 U/L (0-35); SODIUM 141 mmol/L (137-145); Total Protein 8.1 g/dL (6.3-8.2)
[2021-10-18] MEDS ORDERED: SUBLIMAZE 100 MCG/2 ML ONE (10:13)
[2021-10-18] MEDS ORDERED: Xylocaine-Mpf 2% 5 Ml Vial ONE (10:14)
[2021-10-18] MEDS ORDERED: DIPRIVAN 200 MG/20 ML IV ONE (10:14)
[2021-10-18] MEDS ORDERED: Zemuron 100 MG/10 ML ONE (10:15)
[2021-10-18] MEDS ORDERED: Quelicin Fliptop 200 MG/10 ML ONE (10:18)
[2021-10-18] MEDS ORDERED: Pre-Attached Lta Kit TP ONE (10:24)
[2021-10-18] MEDS ORDERED: OFIRMEV 100 ML IV ONE (10:24)
[2021-10-18] MEDS ORDERED: Astramorph-Pf 5 MG/10 ML ONE (10:28)
[2021-10-18] MEDS ORDERED: Versed 2 MG/2 ML Injection ONE (10:35)
[2021-10-18] MEDS ORDERED: Zofran 4 MG/2 ML VIAL ONE (10:36)
[2021-10-18] MEDS ORDERED: Decadron 4 MG INJ ONE (10:37)
[2021-10-18] MEDS ORDERED: Ephedrine Sulfate 50 MG/ML ONE (10:43)
[2021-10-18 10:46] LABS: INFLUENZA A NEGATIVE (NEGATIVE); INFLUENZA B NEGATIVE (NEGATIVE); RESPIRATORY SYNCTIAL VIRUS NEGATIVE (Negative); SARS-CoV-2 Xpert Express NEGATIVE (NEGATIVE)
[2021-10-18] MEDS ORDERED: Sensorcaine 0.25% 10 ML ONE (11:40)
[2021-10-18] MEDS ORDERED: Zofran 4 MG/2 ML VIAL IV PRN (12:50)
[2021-10-18] MEDS ORDERED: TORAdol 30 mg Injection IV PRN (12:52)
[2021-10-18] MEDS ORDERED: MORPHINE SULFATE 2 MG INJ IV PRN ×2 (12:58→13:15)
[2021-10-18] MEDS ORDERED: DILAUDID 1 MG/1ML PCA IV PRN (12:59)
[2021-10-18] MEDS ORDERED: BENADRYL 50 MG/ML IV PRN (13:00)
[2021-10-18] MEDS ORDERED: CLARITIN 10 MG PO PRN (13:00)
[2021-10-18] MEDS ORDERED: DEMEROL 50 MG IV PRN (13:00)
[2021-10-18] MEDS ORDERED: Nubain 10 MG/ML IV PRN (13:00)
[2021-10-18] MEDS ORDERED: PERCOCET TABLET 5/325MG PO PRN (13:00)
[2021-10-18] MEDS ORDERED: Narcan 0.4 MG/ML IV PRN (13:00)
[2021-10-18] MEDS ORDERED: Sodium Chloride 0.9% 10 ML FLUSH Syringe IJ PRN (13:00)
[2021-10-18] MEDS ORDERED: EXPAREL 133 MG/10 ML VIAL IJ ONE (13:05)
[2021-10-18] MEDS ORDERED: NON-FORMULARY ITEM (Semaglutide [Ozempic] 0.25 MG/0.2 ML Pen.Injctr) SQ SCH ×2 (13:30→14:30)
[2021-10-18 13:44] LABS: Epithelial Cells RARE /HPF (FEW); Mucus SLIGHT /HPF (NEGATIVE); RBC 0-2 /HPF (0-2); WBC 0-2 /HPF (0-5)
[2021-10-18 13:45] LABS: Appearance CLEAR (CLEAR); Bilirubin NEGATIVE (NEGATIVE); Glucose NEGATIVE (NEGATIVE); Ketones NEGATIVE (NEGATIVE); Nitrite NEGATIVE (NEGATIVE); Protein,Urine Dip NEGATIVE (Negative); RBC NEGATIVE Ery/ul (0-5); Specific Gravity 1.025 (1.005-1.025); Urobilinogen 0.2 mg/dL (0-1)
[2021-10-18 13:46] LABS: Dipstick done @ ? MAIN LAB
[2021-10-18] MEDS: Reglan 10 MG/2 ML IV SCH ×2 (13:53→21:56)
[2021-10-18] MEDS: Mylicon 80MG PO SCH ×2 (13:53→21:55)
[2021-10-18] MEDS ORDERED: CEFAZOLIN 2 GM-D5W BAG** 2 GM/50 ML ML IV SCH (14:00)
[2021-10-18 18:14] LABS: Hematocrit 39.7 % (35-47); Mean Cell Volume 86.1 fL (78-100); Mean Corpuscular Hemoglobin 28.2 pg (26-32); Mean Corpuscular Hgb Concent. 32.7 g/dL (32-36); Mean Platelet Volume 10.5 fL (7.5-11.0); Platelet Count 357 x10^3/uL (150-450); Red Blood Count 4.61 x10^6/uL (4.1-5.4); Red Cell Distribution Width 13.8 % (11.5-14.0)
[2021-10-18] MEDS: CEFAZOLIN 2 GM-D5W BAG** 2 GM/50 ML ML IV SCH (18:53)
[2021-10-18] MEDS: Docusate Sodium 100 MG PO SCH (21:56)
[2021-10-18] MEDS ORDERED: ZOCOR 20MG PO SCH (22:00)
[2021-10-18] MEDS ORDERED: NON-FORMULARY ITEM (Atorvastatin Calcium [Atorvastatin Calcium] 20 MG Tablet) PO SCH (22:00)
[2021-10-18] MEDS ORDERED: FENOFIBRATE MICRONIZED 200 MG PO SCH (22:00)
[2021-10-18] MEDS ORDERED: Tricor 145 MG PO SCH (22:00)
[2021-10-19] MEDS: CEFAZOLIN 2 GM-D5W BAG** 2 GM/50 ML ML IV SCH (02:33)
[2021-10-19 05:09] LABS: Hematocrit 36.4 % (35-47); Hemoglobin 11.9 g/dL (12.0-16.0); Mean Cell Volume 87.1 fL (78-100); Mean Corpuscular Hemoglobin 28.5 pg (26-32); Mean Corpuscular Hgb Concent. 32.7 g/dL (32-36); Mean Platelet Volume 10.7 fL (7.5-11.0); Platelet Count 313 x10^3/uL (150-450); Red Blood Count 4.18 x10^6/uL (4.1-5.4); Red Cell Distribution Width 14.1 % (11.5-14.0); White Blood Count 13.2 x10^3/uL (4.0-10.5)
[2021-10-19 05:32] LABS: ALBUMIN 3.8 g/dL (3.5-5.0); ALKALINE PHOSPHATASE 51 U/L (38-126); ANION GAP 11.5 MEQ/L (5-15); BLOOD UREA NITROGEN 12 mg/dL (7-17); CHLORIDE 103 mmol/L (98-107); Calcium 9.1 mg/dL (8.4-10.2); Carbon Dioxide 29 mmol/L (22-30); Creatinine 1 0.84 mg/dL (0.52-1.04); EST GLOMERULAR FILTRATION RATE > 60.0 ML/MIN; Glucose 107 mg/dL (74-106); Potassium 4.5 mmol/L (3.5-5.1); SGOT/AST 38 U/L (14-36); SGPT/ALT 45 U/L (0-35); SODIUM 139 mmol/L (137-145); Total Protein 6.5 g/dL (6.3-8.2)
[2021-10-19] MEDS: Reglan 10 MG/2 ML IV SCH (05:53)
[2021-10-19] MEDS: Lactated Ringers 1,000 ML IV SCH (05:53)
[2021-10-19] MEDS: Mylicon 80MG PO SCH (05:53)
[2021-10-19 06:40] VITALS: BP 131/62; PULSE 79; O2SAT 95
--- NOTE | 2021-10-19 07:35 | PCM.NOTE ---
Date and Time: 10/19/21732 Subjective Assessment: pod 1 pt resting in bed and doing well tolerating diet and ambulating. vss afebrile abd; soft incision c/d/intact ext; no clubbing cyanosis or edema hgb; 11.9 a/p sp laparotomy supracervical hysterectomy left salpingectomy dc home today fu office 2 wks OBJECTIVE DATA Vital Signs: Vital Signs - 24 hr Temp Pulse Resp BP Pulse Ox 10/19/21 06:39 97.1 F 79 17 131/62 95 10/19/21 04:02 97.3 F 68 16 120/57 96 10/19/21 00:00 97.4 F 69 18 107/59 98 10/18/21 21:08 96 10/18/21 19:32 97.4 F 81 16 113/58 95 10/18/21 17:10 16 10/18/21 14:45 95.7 F 76 16 121/59 94 L 10/18/21 14:15 96.3 F 85 19 172/70 98 10/18/21 14:06 96.6 F 77 140/90 95 10/18/21 13:45 97.3 F 80 16 157/67 96 10/18/21 13:30 96.3 F 69 19 163/74 97 10/18/21 13:20 95 10/18/21 08:30 96.6 F 77 18 140/90 97 10/18/21 08:18 96.6 F 77 18 140/90 97 Pain Assessment - Last Documented Pain Intensity 0 Intake and Output: Intake & Output 10/16/21 10/17/21 10/18/21 10/19/21 11:59 11:59 11:59 11:59 Intake Total 1738 Output Total 2350 Balance -612 Weight 83.3 kg 88.6 kg Lab Results: Lab Results-Last 24 Hours 10/18/21 10/18/21 10/18/21 Range/Units 08:50 08:50 08:50 WBC 9.1 (4.0-10.5) x10^3/uL RBC 5.11 (4.1-5.4) x10^6/uL Hgb 14.0 (12.0-16.0) g/dL Hct 45.3 (35-47) % MCV 88.6 (78-100) fL MCH 27.4 (26-32) pg MCHC 30.9 L (32-36) g/dL RDW 13.8 (11.5-14.0) % Plt Count 278 (150-450) x10^3/uL MPV 11.5 H (7.5-11.0) fL Sodium 141 (137-145) mmol/L Potassium 4.1 (3.5-5.1) mmol/L Chloride 106 (98-107) mmol/L Carbon Dioxide 22 (22-30) mmol/L Anion Gap 16.9 H (5-15) MEQ/L BUN 16 (7-17) mg/dL Creatinine 0.74 (0.52-1.04) mg/dL Estimated GFR > 60.0 ML/MIN Glucose 103 (74-106) mg/dL POC Glucometer (74 to 106) mg/dL Calcium 9.8 (8.4-10.2) mg/dL Total Bilirubin 0.30 (0.2-1.3) mg/dL AST 33 (14-36) U/L ALT 38 H (0-35) U/L Alkaline Phosphatase 61 (38-126) U/L Serum Total Protein 8.1 (6.3-8.2) g/dL Albumin 4.7 (3.5-5.0) g/dL Urinalys Dipstick Clnc Urine Color (YELLOW) Urine Appearance (CLEAR) Urine pH (5-6) Ur Specific [place] (1.005-1.025) POC Urine Protein Conf (Negative) Urine Ketones (NEGATIVE) Urine Nitrite (NEGATIVE) Urine Bilirubin (NEGATIVE) Urine Urobilinogen (0-1) mg/dL Urine Leukocytes (NEGATIVE) Urine WBC (Auto) (0-5) /HPF Urine RBC (Auto) (0-2) /HPF U Epithel Cells (Auto) (FEW) /HPF Urine RBC (0-5) Yossi/ul Urine Mucus (Auto) (NEGATIVE) /HPF Urine Glucose (NEGATIVE) mg/dL Influenza Type A Ag NEGATIVE (NEGATIVE) Influenza Type B Ag NEGATIVE (NEGATIVE) RSV (PCR) NEGATIVE (Negative) SARS-CoV-2 (PCR) NEGATIVE (NEGATIVE) ABO Group Rh Factor Antibody Screen (NEGATIVE) 10/18/21 10/18/21 10/18/21 Range/Units 08:50 10:57 12:36 WBC (4.0-10.5) x10^3/uL RBC (4.1-5.4) x10^6/uL Hgb (12.0-16.0) g/dL Hct (35-47) % MCV (78-100) fL MCH (26-32) pg MCHC (32-36) g/dL RDW (11.5-14.0) % Plt Count (150-450) x10^3/uL MPV (7.5-11.0) fL Sodium (137-145) mmol/L Potassium (3.5-5.1) mmol/L Chloride (98-107) mmol/L Carbon Dioxide (22-30) mmol/L Anion Gap (5-15) MEQ/L BUN (7-17) mg/dL Creatinine (0.52-1.04) mg/dL Estimated GFR ML/MIN Glucose (74-106) mg/dL POC Glucometer 98 (74 to 106) mg/dL Calcium (8.4-10.2) mg/dL Total Bilirubin (0.2-1.3) mg/dL AST (14-36) U/L ALT (0-35) U/L Alkaline Phosphatase (38-126) U/L Serum Total Protein (6.3-8.2) g/dL Albumin (3.5-5.0) g/dL Urinalys Dipstick Clnc MAIN LAB Urine Color YELLOW (YELLOW) Urine Appearance CLEAR (CLEAR) Urine pH 5.0 (5-6) Ur Specific [place] 1.025 (1.005-1.025) POC Urine Protein Conf NEGATIVE (Negative) Urine Ketones NEGATIVE (NEGATIVE) Urine Nitrite NEGATIVE (NEGATIVE) Urine Bilirubin NEGATIVE (NEGATIVE) Urine Urobilinogen 0.2 (0-1) mg/dL Urine Leukocytes NEGATIVE (NEGATIVE) Urine WBC (Auto) 0-2 (0-5) /HPF Urine RBC (Auto) 0-2 (0-2) /HPF U Epithel Cells (Auto) RARE (FEW) /HPF Urine RBC NEGATIVE (0-5) Yossi/ul Urine Mucus (Auto) SLIGHT (NEGATIVE) /HPF Urine Glucose NEGATIVE (NEGATIVE) mg/dL Influenza Type A Ag (NEGATIVE) Influenza Type B Ag (NEGATIVE) RSV (PCR) (Negative) SARS-CoV-2 (PCR) (NEGATIVE) ABO Group B Rh Factor NEGATIVE Antibody Screen NEGATIVE (NEGATIVE) 10/18/21 10/19/21 10/19/21 Range/Units 18:05 04:35 04:35 WBC 16.0 H 13.2 H (4.0-10.5) x10^3/uL RBC 4.61 4.18 (4.1-5.4) x10^6/uL Hgb 13.0 11.9 L (12.0-16.0) g/dL Hct 39.7 36.4 (35-47) % MCV 86.1 87.1 (78-100) fL MCH 28.2 28.5 (26-32) pg MCHC 32.7 32.7 (32-36) g/dL RDW 13.8 14.1 H (11.5-14.0) % Plt Count 357 313 (150-450) x10^3/uL MPV 10.5 10.7 (7.5-11.0) fL Sodium 139 (137-145) mmol/L Potassium 4.5 (3.5-5.1) mmol/L Chloride 103 (98-107) mmol/L Carbon Dioxide 29 (22-30) mmol/L Anion Gap 11.5 (5-15) MEQ/L BUN 12 (7-17) mg/dL Creatinine 0.84 (0.52-1.04) mg/dL Estimated GFR > 60.0 ML/MIN Glucose 107 H (74-106) mg/dL POC Glucometer (74 to 106) mg/dL Calcium 9.1 (8.4-10.2) mg/dL Total Bilirubin 0.20 (0.2-1.3) mg/dL AST 38 H (14-36) U/L ALT 45 H (0-35) U/L Alkaline Phosphatase 51 (38-126) U/L Serum Total Protein 6.5 (6.3-8.2) g/dL Albumin 3.8 (3.5-5.0) g/dL Urinalys Dipstick Clnc Urine Color (YELLOW) Urine Appearance (CLEAR) Urine pH (5-6) Ur Specific [place] (1.005-1.025) POC Urine Protein Conf (Negative) Urine Ketones (NEGATIVE) Urine Nitrite (NEGATIVE) Urine Bilirubin (NEGATIVE) Urine Urobilinogen (0-1) mg/dL Urine Leukocytes (NEGATIVE) Urine WBC (Auto) (0-5) /HPF Urine RBC (Auto) (0-2) /HPF U Epithel Cells (Auto) (FEW) /HPF Urine RBC (0-5) Yossi/ul Urine Mucus (Auto) (NEGATIVE) /HPF Urine Glucose (NEGATIVE) mg/dL Influenza Type A Ag (NEGATIVE) Influenza Type B Ag (NEGATIVE) RSV (PCR) (Negative) SARS-CoV-2 (PCR) (NEGATIVE) ABO Group Rh Factor Antibody Screen (NEGATIVE) Assessment/Plan (1) Status post abdominal supracervical subtotal hysterectomy Current Visit: Yes Status: Acute Code(s): Z90.711 - ACQUIRED ABSENCE OF UTERUS WITH REMAINING CERVICAL STUMP (2) Uterine fibroid Current Visit: No Status: Acute Code(s): D25.9 - LEIOMYOMA OF UTERUS, UNSPECIFIED
--- NOTE | 2021-10-19 07:41 | PCM.DS ---
Discharge Summary Date of Admission: 10/18/21 07:22 Admitting Physician: KIM MERA DO Primary Care Provider: TRAVON DIA NINFA Allergies Allergies egg Allergy (Severe, Verified 10/18/21 08:09) Tightness of Throat citalopram [From Celexa] Allergy (Mild, Verified 10/18/21 08:09) Hives Sulfa (Sulfonamide Antibiotics) [Sulfa(Sulfonamide Antibiotics)] Allergy (Mild, Verified 10/18/21 08:09) Rash Hospital Summary - Hospital Course Hospital Course: pt admitted on october 18 for undergoing laparotomy supracervical hysterectomy left salpingectomy secondary for pelvic pain and fibroid uterus and underwent procedure without complication. during postop period did well was able to ambulate and tolerate diet. incision c/d/intact and is stable for discharge today. all questions answered to her satisfaction and was advised to fu in office in 2 wks. - Vitals & Intake/Output Vital Signs: Vital Signs Temperature 97.1 F 10/19/21 06:39 Pulse Rate 79 10/19/21 06:39 Respiratory Rate 17 10/19/21 06:39 Blood Pressure 131/62 10/19/21 06:39 O2 Sat by Pulse Oximetry 95 10/19/21 06:39 Intake & Output: Intake & Output 10/16/21 10/17/21 10/18/21 10/19/21 11:59 11:59 11:59 11:59 Intake Total 1738 Output Total 2350 Balance -612 Weight 83.3 kg 88.6 kg - Lab Result Diagrams: 10/19/21 04:35 10/19/21 04:35 Lab Results-Last 24 Hrs: Lab Results-Last 24 Hours 10/18/21 10/18/21 10/18/21 Range/Units 08:50 08:50 08:50 WBC 9.1 (4.0-10.5) x10^3/uL RBC 5.11 (4.1-5.4) x10^6/uL Hgb 14.0 (12.0-16.0) g/dL Hct 45.3 (35-47) % MCV 88.6 (78-100) fL MCH 27.4 (26-32) pg MCHC 30.9 L (32-36) g/dL RDW 13.8 (11.5-14.0) % Plt Count 278 (150-450) x10^3/uL MPV 11.5 H (7.5-11.0) fL Sodium 141 (137-145) mmol/L Potassium 4.1 (3.5-5.1) mmol/L Chloride 106 (98-107) mmol/L Carbon Dioxide 22 (22-30) mmol/L Anion Gap 16.9 H (5-15) MEQ/L BUN 16 (7-17) mg/dL Creatinine 0.74 (0.52-1.04) mg/dL Estimated GFR > 60.0 ML/MIN Glucose 103 (74-106) mg/dL POC Glucometer (74 to 106) mg/dL Calcium 9.8 (8.4-10.2) mg/dL Total Bilirubin 0.30 (0.2-1.3) mg/dL AST 33 (14-36) U/L ALT 38 H (0-35) U/L Alkaline Phosphatase 61 (38-126) U/L Serum Total Protein 8.1 (6.3-8.2) g/dL Albumin 4.7 (3.5-5.0) g/dL Urinalys Dipstick Clnc Urine Color (YELLOW) Urine Appearance (CLEAR) Urine pH (5-6) Ur Specific Sherman (1.005-1.025) POC Urine Protein Conf (Negative) Urine Ketones (NEGATIVE) Urine Nitrite (NEGATIVE) Urine Bilirubin (NEGATIVE) Urine Urobilinogen (0-1) mg/dL Urine Leukocytes (NEGATIVE) Urine WBC (Auto) (0-5) /HPF Urine RBC (Auto) (0-2) /HPF U Epithel Cells (Auto) (FEW) /HPF Urine RBC (0-5) Yossi/ul Urine Mucus (Auto) (NEGATIVE) /HPF Urine Glucose (NEGATIVE) mg/dL Influenza Type A Ag NEGATIVE (NEGATIVE) Influenza Type B Ag NEGATIVE (NEGATIVE) RSV (PCR) NEGATIVE (Negative) SARS-CoV-2 (PCR) NEGATIVE (NEGATIVE) ABO Group Rh Factor Antibody Screen (NEGATIVE) 10/18/21 10/18/21 10/18/21 Range/Units 08:50 10:57 12:36 WBC (4.0-10.5) x10^3/uL RBC (4.1-5.4) x10^6/uL Hgb (12.0-16.0) g/dL Hct (35-47) % MCV (78-100) fL MCH (26-32) pg MCHC (32-36) g/dL RDW (11.5-14.0) % Plt Count (150-450) x10^3/uL MPV (7.5-11.0) fL Sodium (137-145) mmol/L Potassium (3.5-5.1) mmol/L Chloride (98-107) mmol/L Carbon Dioxide (22-30) mmol/L Anion Gap (5-15) MEQ/L BUN (7-17) mg/dL Creatinine (0.52-1.04) mg/dL Estimated GFR ML/MIN Glucose (74-106) mg/dL POC Glucometer 98 (74 to 106) mg/dL Calcium (8.4-10.2) mg/dL Total Bilirubin (0.2-1.3) mg/dL AST (14-36) U/L ALT (0-35) U/L Alkaline Phosphatase (38-126) U/L Serum Total Protein (6.3-8.2) g/dL Albumin (3.5-5.0) g/dL Urinalys Dipstick Clnc MAIN LAB Urine Color YELLOW (YELLOW) Urine Appearance CLEAR (CLEAR) Urine pH 5.0 (5-6) Ur Specific Sherman 1.025 (1.005-1.025) POC Urine Protein Conf NEGATIVE (Negative) Urine Ketones NEGATIVE (NEGATIVE) Urine Nitrite NEGATIVE (NEGATIVE) Urine Bilirubin NEGATIVE (NEGATIVE) Urine Urobilinogen 0.2 (0-1) mg/dL Urine Leukocytes NEGATIVE (NEGATIVE) Urine WBC (Auto) 0-2 (0-5) /HPF Urine RBC (Auto) 0-2 (0-2) /HPF U Epithel Cells (Auto) RARE (FEW) /HPF Urine RBC NEGATIVE (0-5) Yossi/ul Urine Mucus (Auto) SLIGHT (NEGATIVE) /HPF Urine Glucose NEGATIVE (NEGATIVE) mg/dL Influenza Type A Ag (NEGATIVE) Influenza Type B Ag (NEGATIVE) RSV (PCR) (Negative) SARS-CoV-2 (PCR) (NEGATIVE) ABO Group B Rh Factor NEGATIVE Antibody Screen NEGATIVE (NEGATIVE) 10/18/21 10/19/21 10/19/21 Range/Units 18:05 04:35 04:35 WBC 16.0 H 13.2 H (4.0-10.5) x10^3/uL RBC 4.61 4.18 (4.1-5.4) x10^6/uL Hgb 13.0 11.9 L (12.0-16.0) g/dL Hct 39.7 36.4 (35-47) % MCV 86.1 87.1 (78-100) fL MCH 28.2 28.5 (26-32) pg MCHC 32.7 32.7 (32-36) g/dL RDW 13.8 14.1 H (11.5-14.0) % Plt Count 357 313 (150-450) x10^3/uL MPV 10.5 10.7 (7.5-11.0) fL Sodium 139 (137-145) mmol/L Potassium 4.5 (3.5-5.1) mmol/L Chloride 103 (98-107) mmol/L Carbon Dioxide 29 (22-30) mmol/L Anion Gap 11.5 (5-15) MEQ/L BUN 12 (7-17) mg/dL Creatinine 0.84 (0.52-1.04) mg/dL Estimated GFR > 60.0 ML/MIN Glucose 107 H (74-106) mg/dL POC Glucometer (74 to 106) mg/dL Calcium 9.1 (8.4-10.2) mg/dL Total Bilirubin 0.20 (0.2-1.3) mg/dL AST 38 H (14-36) U/L ALT 45 H (0-35) U/L Alkaline Phosphatase 51 (38-126) U/L Serum Total Protein 6.5 (6.3-8.2) g/dL Albumin 3.8 (3.5-5.0) g/dL Urinalys Dipstick Clnc Urine Color (YELLOW) Urine Appearance (CLEAR) Urine pH (5-6) Ur Specific Sherman (1.005-1.025) POC Urine Protein Conf (Negative) Urine Ketones (NEGATIVE) Urine Nitrite (NEGATIVE) Urine Bilirubin (NEGATIVE) Urine Urobilinogen (0-1) mg/dL Urine Leukocytes (NEGATIVE) Urine WBC (Auto) (0-5) /HPF Urine RBC (Auto) (0-2) /HPF U Epithel Cells (Auto) (FEW) /HPF Urine RBC (0-5) Yossi/ul Urine Mucus (Auto) (NEGATIVE) /HPF Urine Glucose (NEGATIVE) mg/dL Influenza Type A Ag (NEGATIVE) Influenza Type B Ag (NEGATIVE) RSV (PCR) (Negative) SARS-CoV-2 (PCR) (NEGATIVE) ABO Group Rh Factor Antibody Screen (NEGATIVE) - Procedures and Test Procedures and Tests throughout Hospitalization: Therapy Orders & Screens 10/18/21 13:23 Incentive Spirometry UD Comment: Diagnosis: uterine bleeding, large tumor fibroid 10/18/21 14:21 Smoking Cessation Education ONCE Comment: Diagnosis: uterine bleeding, large tumor fibroid Smoking Status: Current every day smoker How long have you smoked: 30 years Have you smoked in the past 12 months: Yes Approximately how many cigarettes per day: pack daily Do you dip or chew tobacco: No Final Diagnosis/Problem List - Final Discharge Diagnosis/Problem (1) Status post abdominal supracervical subtotal hysterectomy Current Visit: Yes Status: Acute Code(s): Z90.711 - ACQUIRED ABSENCE OF UTERUS WITH REMAINING CERVICAL STUMP (2) Uterine fibroid Current Visit: No Status: Acute Code(s): D25.9 - LEIOMYOMA OF UTERUS, UNSPECIFIED - Discharge Disposition: Home, Self-Care Condition: Stable Prescriptions: New clindamycin HCL [Clindamycin HCl] 300 mg PO BID #10 Hydrocodone/Acetaminophen [Hydrocodone-Acetamin 5-325 mg] 1 tab PO Q6HPRN PRN #30 tablet MDD 4 PRN Reason: Pain No Action Metoprolol Succinate [Toprol Xl] 50 mg PO DAILY Atorvastatin Calcium 40 mg PO HS Fenofibrate,Micronized [Fenofibrate] 160 mg PO HS Semaglutide [Ozempic] 0.05 mg SQ WEEKLY Levothyroxine Sodium [Euthyrox] 112 mcg PO DAILY Cholecalciferol (Vitamin D3) [Vitamin D] 1,000 unit PO DAILY Hydrocodone/APAP 5/325 [[place] 5/325 mg] 1 each PO Q8H PRN PRN #10 tablet MDD 3 PRN Reason: Pain Follow up with: TRAVON DIA MD [Primary Care Provider] - KIM MERA DO [ACTIVE STAFF] - 2 weeks (no heavy lifting no driving for 7 days keep incision clean and dry)
[2021-10-19] MEDS ORDERED: ENOXAPARIN SODIUM SQ SCH (08:00)
[2021-10-19] MEDS: Docusate Sodium 100 MG PO SCH (08:44)
--- NOTE | 2021-10-19 09:57 | OP ---
SURGERY DATE/TIME: 10/18/2021 1035 PREOPERATIVE DIAGNOSES: 1) Symptomatic fibroid uterus. 2) Pelvic pain. POSTOPERATIVE DIAGNOSES: 1) Symptomatic fibroid uterus. 2) Pelvic pain. PROCEDURES: 1) Laparotomy supracervical hysterectomy. 2) Left salpingectomy. SURGEON: Benton Russell D.O. REVIEW COORDINATOR: Stepan Davis surgical attendant. ANESTHESIA: General. ESTIMATED BLOOD LOSS: 100 cc. COMPLICATIONS: None. INDICATIONS: The risks, benefits, indications and alternatives of the procedure were reviewed with the patient prior to the procedure. The patient understood the risk of infection, bleeding, bowel injury, bladder injury, ureteral injury, uterine perforation, pelvic infection and thromboembolic disorder associated with this surgery and desires to have this surgery as a possible means to alleviate her current medical condition. DESCRIPTION OF PROCEDURE AND FINDINGS: At this point the patient is taken to the operating room placed in the supine position, given general anesthesia, prepared and draped in the usual sterile fashion. A Pfannenstiel incision was made approximately 2 cm above the symphysis pubis and extended sharply through the rectus fascia. The fascia was then incised bilaterally with curved Paul scissors and the muscles of the anterior abdominal wall were in the midline by sharp and blunt dissection. The peritoneum was grasped between two pickups elevated and entered sharply with Metzenbaum scissors. The pelvis is then examined and noted to have approximately 10 week uterus with a right fibroid located on the right parametrial portion. An O'Eliecer-O'Das retractor was placed into the incision and the bowel packed away with moist laparotomy sponges. A tenaculum is then placed on the fundus of the uterus and was used to elevate the uterus. From this point the LigaSure was used and was placed over the left utero-ovarian ligament where it is clamped, coagulated, cut and taken down to the round ligament towards the uterine vasculature and hemostasis was obtained. After identifying uterine vasculature, Selina clamps were used to clamp where it was skeletonized and then it was clamped, transected and suture ligated with 0 Vicryl. A bladder flap was developed on its side. The left fallopian tube was elevated and the LigaSure was used and it was clamped, coagulated and cut under the mesosalpinx and was removed without difficulty. The same procedure was performed on the right side where the right utero-ovarian ligament was clamped, coagulated, cut, taken down to the round ligament where there was an identified fibroid located on the right parametrial region which was approximately 3 x 4 cm in dimension. The uterine artery was skeletonized, clamped with Selina clamp, transected and suture ligated with 0 Vicryl suture. Again, hemostasis was assured. From this point the uterus was elevated and the bipolar instrument was used to amputate the uterus from its cervical stump and was done so without complication. The cervical stump region was closed in continuous fashion using 0 Vicryl suture and hemostasis was assured. From this point, the pelvis was then irrigated with warm normal saline and the bilateral ovaries appeared to be within normal limits and were not removed during the procedure. All operative sponge and instruments were removed from the patient's abdomen. The fascia was closed with running 0 Vicryl suture and hemostasis assured and the skin was closed with absorbable justina called INSORB. Sponge, lap, needle and instruments counts were correct x2. The patient was then taken to the recovery room in stable condition.
[2021-10-19] MEDS ORDERED: HOLD NARCOTIC ANALGESICS AND SEDATIVES X24 HR MC SCH (10:00)
[2021-10-19] MEDS ORDERED: SYNTHROID 112 MCG PO SCH (10:00)
[2021-10-19] MEDS ORDERED: VITAMIN D PO SCH (10:00)
[2021-10-19] MEDS ORDERED: Toprol Xl 50 MG PO SCH (10:00)
[2021-10-19] MEDS ORDERED: NORCO 5/325 MG PO PRN (13:00)
== END 2021-10-19 09:16 | disposition home or self-care (01) | DRG 743 ==
LOC: EDSTATUS 11:58 → MED SURG 10-18 07:22
PROVIDERS: ADMIT Obstetrics & Gynecology; ATTEND Obstetrics & Gynecology
PROC: 0UT94ZL Resection of Uterus, Supracervical, Percutaneous Endoscopic Approach (ICD-10-PCS; principal; 2021-10-18)
PROC: 0UT64ZZ Resection of Left Fallopian Tube, Percutaneous Endoscopic Approach (ICD-10-PCS; 2021-10-18)
DX: D25.9 Leiomyoma of uterus, unspecified (principal); R10.2 Pelvic and perineal pain; Z79.899 Other long term (current) drug therapy; Z20.828 Contact with and (suspected) exposure to other viral communicable diseases
CPT/HCPCS: 0241U; 36415; 62322; 64488; 76937; 76942; 80053; 81001; 82947; 85027; 86850; 86900; 86901; 87086; 94762; J0330; J0690; J0694; J1100; J1170; J1650; J2250; J2274; J2405; J2704; J3010; A9270-GY

== ENCOUNTER 2021-09-30 12:12 | Emergency (ER) | payer BC ==
--- NOTE | 2021-09-30 12:17 | ERPHSYRPT ---
- History of Present Illness Time Seen by Provider: 09/30/21 12:16 Historian: patient Exam Limitations: no limitations Physician History: This is a 51-year-old white female patient of both Dr. 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 Patient has had an extensive work-up and is found to have uterine fibroids (leiomyoma) and was scheduled to undergo surgical procedure on 09/20/2021. However that was actually moved to October 18, 2021. Patient has not had any nausea vomiting or diarrhea. She has not had any vaginal bleeding. Patient took her last tramadol this morning and she states the tramadol was not helping her pain control much. She is here for worsening pelvic pain and she has run out of her pain medication. This patient has a history of type 2 diabetes, migraine headaches, hypothyroidism, hypertension and elevated cholesterol. Timing/Duration: intermittent, worse Quality: aching, pressure Abdominal Pain Onset Location: suprapubic Pain Radiation: no radiation Severity of Pain-Max: moderate Severity of Pain-Current: moderate Modifying Factors: Improves With: nothing Associated Symptoms: denies symptoms, No chest pain, No diarrhea, No nausea, No vomiting Previous symptoms: same symptoms as today Allergies/Adverse Reactions: egg Allergy (Severe, Verified 09/30/21 12:19) Tightness of Throat citalopram [From Celexa] Allergy (Mild, Verified 09/30/21 12:19) Hives Sulfa (Sulfonamide Antibiotics) [Sulfa(Sulfonamide Antibiotics)] Allergy (Mild, Verified 09/30/21 12:19) Rash Home Medications: Atorvastatin Calcium 40 mg PO HS 09/13/17 [History] Metoprolol Succinate [Toprol Xl] 50 mg PO DAILY 09/13/17 [History] Fenofibrate,Micronized [Fenofibrate] 160 mg PO HS 04/20/19 [History] Cholecalciferol (Vitamin D3) [Vitamin D] 1,000 unit PO DAILY 09/12/21 [History] Levothyroxine Sodium [Euthyrox] 112 mcg PO DAILY 09/12/21 [History] Semaglutide [Ozempic] 0.05 mg SQ WEEKLY 09/12/21 [History] Hx Tetanus, Diphtheria Vaccination/Date Given: No (unknown) Hx Influenza Vaccination/Date Given: No (irritation to eggs) Hx Pneumococcal Vaccination/Date Given: No Travel Risk - International Travel Have you traveled outside of the country in past 3 weeks: No - Coronavirus Screening Are you exhibiting any of the following symptoms?: No Close contact with a COVID-19 positive Pt in past 14-21 Days: No - Vaccine Status Have you recieved a Covid-19 vaccination: No - Review of Systems Constitutional: No Symptoms Eyes: No Symptoms Ears, Nose, & Throat: No Symptoms Respiratory: No Symptoms Cardiac: No Symptoms Abdominal/Gastrointestinal: Abdominal Pain (Suprapubic/pelvic) Genitourinary Symptoms: No Symptoms Musculoskeletal: No Symptoms Skin: No Symptoms Neurological: No Symptoms Psychological: No Symptoms Endocrine: No Symptoms Hematologic/Lymphatic: No Symptoms Immunological/Allergic: No Symptoms All Other Systems: Reviewed and Negative - Past Medical History Pertinent Past Medical History: Yes Neurological History: Migraines ENT History: No Pertinent History Cardiac History: Arrhythmia, High Cholesterol, Hypertension Respiratory History: Other Endocrine Medical History: Diabetes Type II Musculoskeletal History: No Pertinent History GI Medical History: GERD, Gallbladder Disease History: No Pertinent History Psycho-Social History: Depression, Anxiety Female Reproductive Disorders: Abnormal Uterine Bleeding, Fibroids, Other Other Medical History: SOB with anxiety,cancerous cells vaginal. Hx palpatations - Past Surgical History Past Surgical History: Yes Neuro Surgical History: No Pertinent History Cardiac: No Pertinent History Respiratory: No Pertinent History Gastrointestinal: Cholecystectomy Genitourinary: No Pertinent History Musculoskeletal: No Pertinent History Female Surgical History: Tubal Ligation Other Surgical History: leep procedure 2020 - Social History Smoking Status: Current every day smoker How long have you smoked: 30 years Exposure to second hand smoke: Yes Alcohol Use: Socially Drug Use: none Patient Lives Alone: No Significant Family History: no pertinent family hx - Nursing Vital Signs Nursing Vital Signs: Initial Vital Signs Temperature 97.8 F 09/30/21 12:19 Pulse Rate 83 09/30/21 12:19 Respiratory Rate 18 09/30/21 12:19 Blood Pressure 143/99 09/30/21 12:19 O2 Sat by Pulse Oximetry 98 09/30/21 12:19 Pain Scale Pain Intensity 10 - Physical Exam General Appearance: no apparent distress, alert, anxiety, obese Eye Exam: PERRL/EOMI, eyes nml inspection Ears, Nose, Throat Exam: normal ENT inspection, moist mucous membranes Neck Exam: normal inspection, non-tender, supple, full range of motion Respiratory Exam: normal breath sounds, lungs clear, airway intact, No chest tenderness, No respiratory distress Cardiovascular Exam: regular rate/rhythm, normal heart sounds, normal peripheral pulses Gastrointestinal/Abdomen Exam: soft, normal bowel sounds, tenderness (Suprapu bic), guarding (Plus minus suprapubic), No rebound Pelvic Exam: not done Rectal Exam: not done Back Exam: normal inspection, normal range of motion, No CVA tenderness, No vertebral tenderness Extremity Exam: normal inspection, normal range of motion, pelvis stable Neurologic Exam: alert, oriented x 3, cooperative, 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 chef 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 II-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 nml as tested, normal mood/affect, nml cerebellar function, nml station & gait, sensation nml Skin Exam: normal color, warm, dry Lymphatic Exam: No adenopathy SpO2 Interpretation: normal O2 Delivery: Room Air - Course Nursing assessment & vital signs reviewed: Yes Ordered Tests: Active Orders 24 hr Category Date Time Status IV Insertion STAT Care 09/30/21 12:44 Active ABDOMEN AND PELVIS W/0 CONTRAS [CT] Stat Exams 09/30/21 12:45 Completed AMYLASE Stat Lab 09/30/21 13:11 Completed CBC W DIFF Stat Lab 09/30/21 13:11 Completed CMP Stat Lab 09/30/21 13:11 Completed CULTURE,URINE Stat Lab 09/30/21 12:51 Received LIPASE Stat Lab 09/30/21 13:11 Completed UA W/RFX CULTURE Stat Lab 09/30/21 12:51 Completed Medication Summary Discontinued Medications Generic Name Dose Route Start Last Admin Trade Name Vic PRN Reason Stop Dose Admin Hydromorphone HCl 1 mg 09/30/21 12:44 09/30/21 13:28 Hydromorphone 1 Mg/1ml Inj 1 Mg/Ml Syringe IV 09/30/21 12:45 1 mg STAT ONE Administration Hydromorphone HCl Confirm 09/30/21 13:25 Hydromorphone 1 Mg/1ml Inj 1 Mg/Ml Syringe Administered 09/30/21 13:26 Dose 1 mg .ROUTE .STK-MED ONE Ondansetron HCl 4 mg 09/30/21 12:44 09/30/21 13:29 Ondansetron Hcl 4 Mg/2 Ml Vial IV 09/30/21 12:45 4 mg STAT ONE Administration Ondansetron HCl Confirm 09/30/21 13:25 Ondansetron Hcl 4 Mg/2 Ml Vial Administered 09/30/21 13:26 Dose 4 mg .ROUTE .STK-MED ONE Lab/Rad Data: Laboratory Result Diagrams 09/30/21 13:11 09/30/21 13:11 Laboratory Results 09/30/21 09/30/21 09/30/21 Range/Units 13:11 13:11 12:51 WBC 10.0 (4.0-10.5) x10^3/uL RBC 4.97 (4.1-5.4) x10^6/uL Hgb 14.0 (12.0-16.0) g/dL Hct 42.5 (35-47) % MCV 85.5 (78-100) fL MCH 28.2 (26-32) pg MCHC 32.9 (32-36) g/dL RDW 14.6 H (11.5-14.0) % Plt Count 375 (150-450) x10^3/uL MPV 10.6 (7.5-11.0) fL Gran % 66.4 H (36.0-66.0) % Immature Gran % (Auto) 0.4 (0.00-0.4) % Nucleat RBC Rel Count 0.0 (0.00-0.1) % Eos # (Auto) 0.23 (0-0.5) x10^3/uL Immature Gran # (Auto) 0.04 H (0.00-0.03) x10^3u/L Absolute Lymphs (auto) 2.22 (1.0-4.6) x10^3/uL Absolute Monos (auto) 0.77 (0.0-1.3) x10^3/uL Absolute Nucleated RBC 0.00 (0.00-0.01) x10^3u/L Lymphocytes % 22.2 L (24.0-44.0) % Monocytes % 7.7 (0.0-12.0) % Eosinophils % 2.3 (0.00-5.0) % Basophils % 1.0 (0.0-0.4) % Absolute Granulocytes 6.63 (1.4-6.9) x10^3/uL Basophils # 0.10 (0-0.4) x10^3/uL Sodium 138 (137-145) mmol/L Potassium 4.2 (3.5-5.1) mmol/L Chloride 104 (98-107) mmol/L Carbon Dioxide 25 (22-30) mmol/L Anion Gap 13.7 (5-15) MEQ/L BUN 19 H (7-17) mg/dL Creatinine 0.84 (0.52-1.04) mg/dL Estimated GFR > 60.0 ML/MIN Glucose 102 (74-106) mg/dL Calcium 9.9 (8.4-10.2) mg/dL Total Bilirubin 0.40 (0.2-1.3) mg/dL AST 38 H (14-36) U/L ALT 45 H (0-35) U/L Alkaline Phosphatase 63 (38-126) U/L Serum Total Protein 8.3 H (6.3-8.2) g/dL Albumin 4.8 (3.5-5.0) g/dL Amylase 73 (30-110) U/L Lipase 93 (23-300) U/L Urinalys Dipstick Clnc MAIN LAB Urine Color YELLOW (YELLOW) Urine Appearance CLEAR (CLEAR) Urine pH 5.0 (5-6) Ur Specific [place] >=1.030 (1.005-1.025) POC Urine Protein Conf NEGATIVE (Negative) Urine Ketones NEGATIVE (NEGATIVE) Urine Nitrite NEGATIVE (NEGATIVE) Urine Bilirubin NEGATIVE (NEGATIVE) Urine Urobilinogen 0.2 (0-1) mg/dL Urine Leukocytes TRACE (NEGATIVE) Urine WBC (Auto) 3-5 (0-5) /HPF Urine RBC (Auto) 0-2 (0-2) /HPF U Epithel Cells (Auto) RARE (FEW) /HPF Urine Bacteria (Auto) RARE (NEGATIVE) /HPF Urine RBC MODERATE (0-5) Yossi/ul Uric Acid Cryst (Auto) 5-10 (NEGATIVE) /HPF Urine Mucus (Auto) SLIGHT (NEGATIVE) /HPF Ur Culture Indicated? YES Urine Glucose NEGATIVE (NEGATIVE) mg/dL - Progress Progress: improved, pain not gone completely Progress Note: 09/30/21 13:48 CAT scan of the abdomen and pelvis without contrast shows no new or acute findings when compared to similar study performed 1 month ago. Counseled pt/family regarding: lab results, diagnosis, need for follow-up, rad results - Departure Departure Disposition: Home Clinical Impression: Abdominal pain, suprapubic Condition: Stable Critical Care Time: No Referrals: TRAVON DIA MD [Primary Care Provider] - Follow up/PCP as directed Additional Instructions: Call your tankage supervisor and primary care provider on 10/03/2021 to make arrangements for further evaluation and management as well as instructions for pain control. Prescriptions: Hydrocodone/APAP 5/325 [[place] 5/325 mg] 1 each PO Q8H PRN PRN #10 tablet MDD 3 PRN Reason: Pain
[2021-09-30 12:25] VITALS: O2SAT 98
[2021-09-30] MEDS ORDERED: Zofran 4 MG/2 ML VIAL IV ONE (12:44)
[2021-09-30] MEDS ORDERED: Hydromorphone 1 mg/ml Injection IV ONE (12:44)
[2021-09-30 13:15] LABS: Bacteria RARE /HPF (NEGATIVE); Epithelial Cells RARE /HPF (FEW); Mucus SLIGHT /HPF (NEGATIVE); RBC 0-2 /HPF (0-2)
[2021-09-30 13:16] LABS: Absolute Neutrophil Ct (ANC) 6.63 x10^3/uL (1.4-6.9); Eosinophil % 2.3 % (0.00-5.0); Eosinophil (Absolute #) 0.23 x10^3/uL (0-0.5); Hematocrit 42.5 % (35-47); Lymphocyte (Absolute #) 2.22 x10^3/uL (1.0-4.6); Lymphocytes % 22.2 % (24.0-44.0); Mean Cell Volume 85.5 fL (78-100); Mean Corpuscular Hemoglobin 28.2 pg (26-32); Mean Corpuscular Hgb Concent. 32.9 g/dL (32-36); Mean Platelet Volume 10.6 fL (7.5-11.0); Monocyte (Absolute #) 0.77 x10^3/uL (0.0-1.3); Monocytes % 7.7 % (0.0-12.0); Neutrophil % 66.4 % (36.0-66.0); Platelet Count 375 x10^3/uL (150-450); Red Blood Count 4.97 x10^6/uL (4.1-5.4); Red Cell Distribution Width 14.6 % (11.5-14.0)
[2021-09-30 13:16] LABS: Appearance CLEAR (CLEAR); Bilirubin NEGATIVE (NEGATIVE); Glucose NEGATIVE (NEGATIVE); Ketones NEGATIVE (NEGATIVE); Nitrite NEGATIVE (NEGATIVE); Protein,Urine Dip NEGATIVE (Negative); RBC MODERATE Ery/ul (0-5); Specific Gravity >=1.030 (1.005-1.025); Urobilinogen 0.2 mg/dL (0-1)
[2021-09-30 13:17] LABS: Dipstick done @ ? MAIN LAB
[2021-09-30 13:20] LABS: Urine Cultured Indicated? YES
[2021-09-30 13:25] LABS: ALBUMIN 4.8 g/dL (3.5-5.0); ALKALINE PHOSPHATASE 63 U/L (38-126); AMYLASE 73 U/L (30-110); ANION GAP 13.7 MEQ/L (5-15); BLOOD UREA NITROGEN 19 mg/dL (7-17); CHLORIDE 104 mmol/L (98-107); Calcium 9.9 mg/dL (8.4-10.2); Carbon Dioxide 25 mmol/L (22-30); Creatinine 1 0.84 mg/dL (0.52-1.04); EST GLOMERULAR FILTRATION RATE > 60.0 ML/MIN; Glucose 102 mg/dL (74-106); LIPASE 93 U/L (23-300); Potassium 4.2 mmol/L (3.5-5.1); SGOT/AST 38 U/L (14-36); SGPT/ALT 45 U/L (0-35); SODIUM 138 mmol/L (137-145); Total Protein 8.3 g/dL (6.3-8.2)
[2021-09-30] MEDS ORDERED: Hydromorphone 1 mg/ml Injection ONE (13:25)
[2021-09-30] MEDS ORDERED: Zofran 4 MG/2 ML VIAL ONE (13:25)
--- NOTE | 2021-09-30 13:38 | XRAY ---
Indication: Lower abdomen pain 1 month. Known uterine fibroids. Multiple contiguous axial images obtained through the abdomen and pelvis without contrast. Comparison: September 02, 2021. Lung bases again demonstrates minimal subsegmental atelectasis/scarring. No infiltrate or effusion. Heart not enlarged. Noncontrasted stomach and bowel loops are nonobstructed again with normal appendix. Stable minimal colonic diverticulosis, diffuse fatty liver, cholecystectomy, small left renal cyst, and large uterine fibroids. No free fluid/air. Remaining liver, pancreas, spleen, adrenal glands, kidneys, ureters, bladder, uterus, and aorta are unremarkable for noncontrast exam. Osseous structures intact. Impression: No change compared to ER CT abdomen/pelvis one month ago again demonstrating colonic diverticulosis, fatty liver, left renal cyst, and uterine fibroids. No new/acute findings.
[2021-09-30 14:08] VITALS: BP 138/76
[2021-09-30 14:11] VITALS: PULSE 83
== END 2021-09-30 14:05 | disposition home or self-care (01) ==
LOC: ED 12:12
DX: R10.2 Pelvic and perineal pain (principal); D25.9 Leiomyoma of uterus, unspecified; E11.9 Type 2 diabetes mellitus without complications; I10 Essential (primary) hypertension; E78.5 Hyperlipidemia, unspecified; Z72.0 Tobacco use; Z79.899 Other long term (current) drug therapy; Z79.891 Long term (current) use of opiate analgesic; Z28.310 Unvaccinated for COVID-19
CPT/HCPCS: 36000; 36415; 74176; 80053; 81015; 82150; 83690; 85025; 87086; 96374; 96375; 99284; J1170; J2405

== ENCOUNTER 2021-09-30 17:08 | Emergency (ER) | payer BC ==
[2021-09-30] MEDS ORDERED: Sodium Chloride 0.9% 1000 ML 1,000 ML IV STA (17:12)
--- NOTE | 2021-09-30 17:29 | ERPHSYRPT ---
- History of Present Illness Time Seen by Provider: 09/30/21 17:25 Historian: patient Exam Limitations: no limitations Patient Subjective Stated Complaint: PT HERE FOR VAGINAL BLEEDING THAT STARTED ABOUT 1630 TODAY, SHE WAS SEEN IN ER THIS AM AND SENT HOME AFTER WORK UP. SHE IS TO HAVE SURGERY IN OCTOBER TO REOVE CYST, Triage Nursing Assessment: PT ALERT, RESP EASY, SKIN W/D/P, FACE MASK IN PLACE, ABD SOFT, NONTENDER, HAS BLOOD IN PANTS AND DRIED BLOOD DOWN LEG, Physician History: This is a 51-year-old overweight white female patient of Dr. Dia who is her primary care physician, and Dr. Russell who is her plug cutter and has known uterine fibroids. She was discharged to home earlier today in the afternoon. She was seen here for pelvic pain which she said was improved after her management here in the emergency department. We repeated a CAT scan of the abdomen and pelvis which did not show any acute or new findings. She was hemodynamically stable upon arrival to the emergency room at the earlier visit as well as at the time of discharge. Her hemoglobin was 14. She had no complaints at that time of vaginal bleeding. What is new for her was a sudden onset of a large amount of vaginal bleeding at approximately 4:30 PM this afternoon which is less than an hour ago. She specifically stated that when her vaginal bleeding occurred suddenly she had significantly improved her pelvic/vaginal pain. Timing/Duration: today Activities at Onset: none Quality: cramping Abdominal Pain Onset Location: suprapubic Pain Radiation: no radiation Severity of Pain-Max: moderate Severity of Pain-Current: moderate Modifying Factors: Improves With: other (New onset vaginal bleeding) Associated Symptoms: other (Vaginal bleeding) Previous symptoms: different symptoms, recently seen Allergies/Adverse Reactions: egg Allergy (Severe, Verified 09/30/21 17:14) Tightness of Throat citalopram [From Celexa] Allergy (Mild, Verified 09/30/21 17:14) Hives Sulfa (Sulfonamide Antibiotics) [Sulfa(Sulfonamide Antibiotics)] Allergy (Mild, Verified 09/30/21 17:14) Rash Home Medications: Atorvastatin Calcium 40 mg PO HS 09/13/17 [History] Metoprolol Succinate [Toprol Xl] 50 mg PO DAILY 09/13/17 [History] Fenofibrate,Micronized [Fenofibrate] 160 mg PO HS 04/20/19 [History] Cholecalciferol (Vitamin D3) [Vitamin D] 1,000 unit PO DAILY 09/12/21 [History] Levothyroxine Sodium [Euthyrox] 112 mcg PO DAILY 09/12/21 [History] Semaglutide [Ozempic] 0.05 mg SQ WEEKLY 09/12/21 [History] Hx Tetanus, Diphtheria Vaccination/Date Given: No (unknown) Hx Influenza Vaccination/Date Given: No (irritation to eggs) Hx Pneumococcal Vaccination/Date Given: No Immunizations Up to Date: Yes Travel Risk - International Travel Have you traveled outside of the country in past 3 weeks: No - Coronavirus Screening Are you exhibiting any of the following symptoms?: No - Vaccine Status Have you recieved a Covid-19 vaccination: No - Past Medical History Pertinent Past Medical History: Yes Neurological History: Migraines ENT History: No Pertinent History Cardiac History: Arrhythmia, High Cholesterol, Hypertension Respiratory History: Other Endocrine Medical History: Diabetes Type II Musculoskeletal History: No Pertinent History GI Medical History: GERD, Gallbladder Disease History: No Pertinent History Psycho-Social History: Depression, Anxiety Female Reproductive Disorders: Abnormal Uterine Bleeding, Fibroids, Other Other Medical History: SOB with anxiety,cancerous cells vaginal. Hx palpatations - Past Surgical History Past Surgical History: Yes Neuro Surgical History: No Pertinent History Cardiac: No Pertinent History Respiratory: No Pertinent History Gastrointestinal: Cholecystectomy Genitourinary: No Pertinent History Musculoskeletal: No Pertinent History Female Surgical History: Tubal Ligation Other Surgical History: leep procedure 2020 - Social History Smoking Status: Current every day smoker How long have you smoked: 30 years Exposure to second hand smoke: Yes Alcohol Use: Socially Drug Use: none Patient Lives Alone: No Significant Family History: no pertinent family hx - Nursing Vital Signs Nursing Vital Signs: Initial Vital Signs Temperature 97.3 F 09/30/21 17:16 Pulse Rate 121 H 09/30/21 17:16 Respiratory Rate 20 09/30/21 17:16 Blood Pressure 164/86 09/30/21 17:16 O2 Sat by Pulse Oximetry 98 09/30/21 17:16 Pain Scale Pain Intensity 0 - Physical Exam SpO2: 98 Ordered Tests: Active Orders 24 hr Category Date Time Status IV Insertion STAT Care 09/30/21 17:12 Active CBC W DIFF Stat Lab 09/30/21 17:30 Completed CMP Stat Lab 09/30/21 17:30 Completed PROTIME WITH INR Stat Lab 09/30/21 17:30 Completed Medication Summary Discontinued Medications Generic Name Dose Route Start Last Admin Trade Name Vic PRN Reason Stop Dose Admin Sodium Chloride 1,000 mls @ 999 mls/hr 09/30/21 17:12 09/30/21 20:14 Sodium Chloride 0.9% 1000 Ml IV 09/30/21 18:12 Infused .Q1H1M STA Infusion Sodium Chloride Confirm 09/30/21 19:12 Sodium Chloride 0.9% 1000 Ml Administered 09/30/21 19:13 Dose 1,000 mls @ ud .ROUTE .STK-MED ONE Lab/Rad Data: Laboratory Result Diagrams 09/30/21 17:30 09/30/21 17:30 Laboratory Results 09/30/21 09/30/21 09/30/21 Range/Units 17:55 17:30 17:30 WBC (4.0-10.5) x10^3/uL RBC (4.1-5.4) x10^6/uL Hgb (12.0-16.0) g/dL Hct (35-47) % MCV (78-100) fL MCH (26-32) pg MCHC (32-36) g/dL RDW (11.5-14.0) % Plt Count (150-450) x10^3/uL MPV (7.5-11.0) fL Gran % (36.0-66.0) % Immature Gran % (Auto) (0.00-0.4) % Nucleat RBC Rel Count (0.00-0.1) % Eos # (Auto) (0-0.5) x10^3/uL Immature Gran # (Auto) (0.00-0.03) x10^3u/L Absolute Lymphs (auto) (1.0-4.6) x10^3/uL Absolute Monos (auto) (0.0-1.3) x10^3/uL Absolute Nucleated RBC (0.00-0.01) x10^3u/L Lymphocytes % (24.0-44.0) % Monocytes % (0.0-12.0) % Eosinophils % (0.00-5.0) % Basophils % (0.0-0.4) % Absolute Granulocytes (1.4-6.9) x10^3/uL Basophils # (0-0.4) x10^3/uL PT 11.4 (9.4-12.5) SECONDS INR 1.08 (0.8-3.0) Sodium 139 (137-145) mmol/L Potassium 4.1 (3.5-5.1) mmol/L Chloride 103 (98-107) mmol/L Carbon Dioxide 23 (22-30) mmol/L Anion Gap 17.6 H (5-15) MEQ/L BUN 21 H (7-17) mg/dL Creatinine 0.92 (0.52-1.04) mg/dL Estimated GFR > 60.0 ML/MIN Glucose 156 H (74-106) mg/dL Calcium 9.9 (8.4-10.2) mg/dL Total Bilirubin 0.60 (0.2-1.3) mg/dL AST 55 H (14-36) U/L ALT 47 H (0-35) U/L Alkaline Phosphatase 79 (38-126) U/L Serum Total Protein 8.8 H (6.3-8.2) g/dL Albumin 5.1 H (3.5-5.0) g/dL ABO Group B Rh Factor NEGATIVE Antibody Screen NEGATIVE (NEGATIVE) 09/30/21 Range/Units 17:30 WBC 14.2 H (4.0-10.5) x10^3/uL RBC 5.19 (4.1-5.4) x10^6/uL Hgb 14.3 (12.0-16.0) g/dL Hct 45.2 (35-47) % MCV 87.1 (78-100) fL MCH 27.6 (26-32) pg MCHC 31.6 L (32-36) g/dL RDW 14.4 H (11.5-14.0) % Plt Count 416 (150-450) x10^3/uL MPV 10.9 (7.5-11.0) fL Gran % 73.9 H (36.0-66.0) % Immature Gran % (Auto) 0.5 H (0.00-0.4) % Nucleat RBC Rel Count 0.0 (0.00-0.1) % Eos # (Auto) 0.12 (0-0.5) x10^3/uL Immature Gran # (Auto) 0.07 H (0.00-0.03) x10^3u/L Absolute Lymphs (auto) 2.58 (1.0-4.6) x10^3/uL Absolute Monos (auto) 0.82 (0.0-1.3) x10^3/uL Absolute Nucleated RBC 0.00 (0.00-0.01) x10^3u/L Lymphocytes % 18.2 L (24.0-44.0) % Monocytes % 5.8 (0.0-12.0) % Eosinophils % 0.8 (0.00-5.0) % Basophils % 0.8 (0.0-0.4) % Absolute Granulocytes 10.48 H (1.4-6.9) x10^3/uL Basophils # 0.12 (0-0.4) x10^3/uL PT (9.4-12.5) SECONDS INR (0.8-3.0) Sodium (137-145) mmol/L Potassium (3.5-5.1) mmol/L Chloride (98-107) mmol/L Carbon Dioxide (22-30) mmol/L Anion Gap (5-15) MEQ/L BUN (7-17) mg/dL Creatinine (0.52-1.04) mg/dL Estimated GFR ML/MIN Glucose (74-106) mg/dL Calcium (8.4-10.2) mg/dL Total Bilirubin (0.2-1.3) mg/dL AST (14-36) U/L ALT (0-35) U/L Alkaline Phosphatase (38-126) U/L Serum Total Protein (6.3-8.2) g/dL Albumin (3.5-5.0) g/dL ABO Group Rh Factor Antibody Screen (NEGATIVE) - Progress Progress: improved Progress Note: 09/30/21 17:47 Patient's daughter was very irate and called into the emergency department prior to the patient arrival to this examination. She was yelling and raised her voice at the nursing staff because she stated it our fault that the patient had this issue and that we sent her home and if there is anything that happens to her its on's. When I went into the room to evaluate the patient I spoke with the patient and the patient's daughter. The patient daughter specifically said that she was upset and irate and she felt that we just "pumped her up with pain medicine and sent her home". I explained to her that that is an accurate and the patient also stated that we did a full work-up. Patient stated that the b leeding did not occur until approximately 4:30 PM and it came on suddenly. She also stated that she has no pain at this time. Both the patient and the patient's daughter were informed that Dr. Russell is not available at this time and pt may require transfer to another facility that has legal office administrator services available where and she can be observed. 09/30/21 18:18 Medical decision making: This patient was reviewed with the patient's plug cutter, Dr. Russell. I reviewed the patient's first visit today as well as the patient's vital signs and current complaint. Dr. Russell states that he is not surprised that there is been of large "gush" of vaginal bleeding. The patient has uterine fibroids that can bleed a large amount rapidly. I am to call him once the work-up has been completed. I told the patient and the patient's daughter that I spoke with Dr. Russell 09/30/21 19:42 Medical decision making: I reviewed the second work-up results with Dr. Russell. He feels that the patient can be discharged to home. There is no need for an emergency or urgent hysterectomy at this time. I had discussion with the patient and the patient's daughter. They are understanding but they want a second opinion and we will attempt to contact gynecology at a different facility to obtain a second opinion. 09/30/21 20:[address] Mcgill, plug cutter and a [facility] in [facility] regarding this patient's clinical picture. He stated that the patient with a hemoglobin of 14.3 and he was hemodynamically stable and not outright actively bleeding at this moment does not need to be observed in the hospital and certainly does not need emergent or urgent surgical intervention. I discussed this with the patient and her daughter. They have voiced an understanding. I did emphasize that it is important that the patient does return to our emergency department or an emergency department that has gynecology services if there is another episode of sudden, significant vaginal bleeding in order to repeat a work-up. Counseled pt/family regarding: lab results, diagnosis, need for follow-up - Departure Departure Disposition: Home Clinical Impression: Vaginal bleeding, Hemodynamically unstable, Uterine fibroid Condition: Stable Critical Care Time: No Referrals: TRAVON DIA MD [Primary Care Provider] - Follow up/PCP as directed Instructions: Uterine Fibroids Additional Instructions: Return to the emergency department as needed if you are symptomatic with weakn ess, dizziness, chest pain, shortness of breath and significant, with associated recurrent vaginal bleeding. Call Dr. Russell's office on Sunday to make a follow- up appointment for 10/05/2021 for reassessment. Take your medications as prescribed.
[2021-09-30 17:44] LABS: Absolute Neutrophil Ct (ANC) 10.48 x10^3/uL (1.4-6.9); Basophil (Absolute #) 0.12 x10^3/uL (0-0.4); Eosinophil % 0.8 % (0.00-5.0); Eosinophil (Absolute #) 0.12 x10^3/uL (0-0.5); Hematocrit 45.2 % (35-47); Hemoglobin 14.3 g/dL (12.0-16.0); Lymphocyte (Absolute #) 2.58 x10^3/uL (1.0-4.6); Lymphocytes % 18.2 % (24.0-44.0); Mean Cell Volume 87.1 fL (78-100); Mean Corpuscular Hemoglobin 27.6 pg (26-32); Mean Corpuscular Hgb Concent. 31.6 g/dL (32-36); Mean Platelet Volume 10.9 fL (7.5-11.0); Monocyte (Absolute #) 0.82 x10^3/uL (0.0-1.3); Monocytes % 5.8 % (0.0-12.0); Neutrophil % 73.9 % (36.0-66.0); Platelet Count 416 x10^3/uL (150-450); Red Blood Count 5.19 x10^6/uL (4.1-5.4); Red Cell Distribution Width 14.4 % (11.5-14.0); White Blood Count 14.2 x10^3/uL (4.0-10.5)
[2021-09-30 18:20] LABS: ALBUMIN 5.1 g/dL (3.5-5.0); ALKALINE PHOSPHATASE 79 U/L (38-126); ANION GAP 17.6 MEQ/L (5-15); BLOOD UREA NITROGEN 21 mg/dL (7-17); CHLORIDE 103 mmol/L (98-107); Calcium 9.9 mg/dL (8.4-10.2); Carbon Dioxide 23 mmol/L (22-30); Creatinine 1 0.92 mg/dL (0.52-1.04); EST GLOMERULAR FILTRATION RATE > 60.0 ML/MIN; Glucose 156 mg/dL (74-106); INR 1.08 (0.8-3.0); PROTIME 11.4 SECONDS (9.4-12.5); Potassium 4.1 mmol/L (3.5-5.1); SGOT/AST 55 U/L (14-36); SGPT/ALT 47 U/L (0-35); SODIUM 139 mmol/L (137-145); Total Protein 8.8 g/dL (6.3-8.2)
[2021-09-30] MEDS ORDERED: Sodium Chloride 0.9% 1000 ML 1,000 ML ONE (19:12)
[2021-09-30 19:37] LABS: ABO TYPING B; Antibody Screen NEGATIVE (NEGATIVE); RH TYPING NEGATIVE
[2021-09-30 20:17] VITALS: BP 126/79; PULSE 75
[2021-09-30 20:18] VITALS: O2SAT 98
== END 2021-09-30 20:25 | disposition home or self-care (01) ==
LOC: ED 17:08
DX: N93.9 Abnormal uterine and vaginal bleeding, unspecified (principal); D25.9 Leiomyoma of uterus, unspecified; R10.2 Pelvic and perineal pain; E11.9 Type 2 diabetes mellitus without complications; I10 Essential (primary) hypertension; E78.5 Hyperlipidemia, unspecified; Z72.0 Tobacco use; Z79.899 Other long term (current) drug therapy; Z79.891 Long term (current) use of opiate analgesic; Z28.310 Unvaccinated for COVID-19
CPT/HCPCS: 36000; 36415; 80053; 85025; 85610; 86850; 86900; 86901; 99283